=== PATIENT | male | born 1960 | race Caucasian/White ===

== ENCOUNTER 2024-02-20 11:18 | Outpatient (CLI) | payer OTHER, SELFPAY ==
--- NOTE | 2024-02-20 12:54 | ECG_ITS ---
Test Date: 2024-02-20 13:17:26 Measurements Intervals [place] Rate: 81 P: 5 W[place]: 220 QRS: -22 QRSD: 99 T: -3 QT: 349 QTc: 405 Interpretive Statements SINUS RHYTHM WITH FIRST DEGREE AV BLOCK BORDERLINE LEFT AXIS DEVIATION [QRS AXIS < -20] VOLTAGE CRITERIA FOR LVH [MEETS CRITERIA IN ONE OF: R(aVL), S(V1), R(V5), R(V5/V6)+S(V1)] No previous ECG available for comparison Electronically Signed On 02-20-2024 14:27:15 LEAD GENERATOR by Brianna Slaughter M.D.
[2024-02-20 13:54] LABS: Basophils Percent Auto 0.5 % (0.2-1.2); Eosinophils Absolute Auto 0.1 K/mm3 (0-0.3); Eosinophils Percent Auto 1.4 % (0-4.4); Hematocrit 40.6 % (42.0-52.0); Hemoglobin 13.2 g/dL (14.0-18.0); Immature Granulocyte Absolute 0.02 K/mm3 (0.00-0.031); Immature Granulocyte Percent A 0.3 % (0-0.5); Lymphocytes Absolute Auto 2.55 K/mm3 (0.9-3.2); Lymphocytes Percent Auto 34.7 % (18.3-44.2); Mean Corpuscular HGB Conc 32.5 g/dl (32-36); Mean Corpuscular Hemoglobin 34.4 pg (26-34); Mean Corpuscular Volume 105.7 fl (80-100); Mean Platelet Volume 10.2 fl (7.4-10.4); Monocytes Absolute Auto 0.9 K/mm3 (0.1-0.6); Monocytes Percent Auto 12.4 % (2.6-8.5); Neutrophils Absolute Auto 3.7 K/mm3 (1.3-6.7); Neutrophils Percent Auto 50.7 % (45.5-73.1); Platelet Count Result 361 k/mm3 (150-375); Red Blood Count 3.84 M/mm3 (4.6-6.20); Red Cell Distribution Width 12.8 % (11.5-14.5); White Blood Count 7.4 K/mm3 (4.5-10.0)
[2024-02-20 14:00] LABS: Urine Cotinine NEGATIVE
[2024-02-20 14:03] LABS: Albumin Level 4.5 g/dL (3.5-5.1)
[2024-02-20 14:06] LABS: Anion Gap 8 mmol/L (4-12); Blood Urea Nitrogen 25 mg/dL (9-20); Calcium 9.8 mg/dL (8.4-10.2); Carbon Dioxide 19 mmol/L (22-30); Chloride 107 mmol/L (98-107); Estimated Glomerular Filt Rate > 60; Glucose 86 mg/dL (65-110); Potassium 4.2 mmol/L (3.4-5.0); Sodium 134 mmol/L (137-145)
[2024-02-20 14:07] LABS: Hemoglobin A1C 5.1 % (<5.7)
[2024-02-20 14:16] LABS: Macrocytosis 1+ (NORMAL); Platelet Estimate Adequate (Adequate); Schistocytes None Seen
[2024-02-20 15:09] LABS: MRSA (PCR) NOT DETECTED (NOT DETECTE)
== END 2024-02-20 11:19 | disposition home or self-care (01) ==
LOC: ANHSURGERY 11:26
PROVIDERS: Anesthesiology; Visit Provider Orthopaedic Surgery
DX: Z01.818 Encounter for other preprocedural examination (principal); M16.12 Unilateral primary osteoarthritis, left hip; E11.9 Type 2 diabetes mellitus without complications; R94.31 Abnormal electrocardiogram [ECG] [EKG]
CPT/HCPCS: 36415; 80048; 80307; 82040; 83036; 85025; 86850; 86900; 86901; 87641; 93005

== ENCOUNTER 2024-02-28 18:07 | Observation (INO) | payer OTHER, SELFPAY ==
--- NOTE | 2024-02-20 11:45 | PC.NURSE ---
Report to the Outpatient Waiting Room, entrance under the green pavilion located off [facility], at time _6 AM on date 02/27/24 . Planned Procedure Time: _7:30 AM .? Time changes happen often and if your time is changed the preop area will call you the afternoon before. - You and your visitor will be asked to self-screen and do not enter if you have any COVID symptoms. Please call surgeon if you need to reschedule. - A mask is optional within the hospital at this time. Patients may have clear liquids (water, carbonated beverages, clear teas, apple juice) until 3 hours prior to surgery( 4:30 AM) with a maximum of 20 ounces. - No food from midnight until time of surgery and no smoking. This includes no chewing gum, candy or mints. - Take only the following medications with a SIP of water on the morning of surgery: _inhaler if needed,amlodipine, DO NOT STOP ANY OF YOUR OTHER PRESCRIPTION MEDICATIONS PRIOR TO SURGERY EXCEPT THE FOLLOWING Medications to discontinue per physician __PT STATES HOLD TRULICITY 10 DAYS PRE OP PER PCP.LAST DOSE02/12/24, HOLD MELOXICAM AND ALEVE PER DR WEN. HOLD ALL VITAMINS AND SUPPLEMENTS 3 DAYS PRE OP PER ANESTHESIA LAST DOSE02/23/24 Please no make-up, nail divehi, hairspray, perfume, deodorant, or body powder the day of surgery.? No jewelry (including any body piercings) or valuables the day of surgery, leave them at home.? Please take a shower or bath the night before, or the morning of, surgery with an antibacterial soap.? Wear comfortable, loose fitting clothing.? Children are encouraged to wear pajamas. - Jewelry must be removed prior to entering the operating room.? Rings and piercings that are not removed may be cut off. - The hospital will not accept responsibility for valuables.? - Please leave all valuables, including medications, at home the day of surgery. If you are going home after surgery, a licensed road train driver must drive you home.? - NO public transportation without another adult if you receive anesthesia. - We recommend that an adult stay with you for 24 hours following discharge. - We also recommend that you do not drive, make important decision, drink alcoholic beverages, or take any drugs that were not prescribed by your health care provider for at least 24 hours after your discharge time. Follow any additional instructions given to you from your surgeon. VERBAL AND WRITTEN instructions given to __PATIENT and asked if any additional questions and then verbalized understanding. Patient advised to call surgeon office or pre surgery nurse liaison [phone] if any additional questions.
[2024-02-20 11:58] VITALS: BMI 37.2
[2024-02-20 12:58] VITALS: BP 171/96; PULSE 81; RESP 18; TEMP 37.3; O2SAT 97
--- NOTE | 2024-02-25 08:20 | PM.IMHP ---
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 He has severe arthritis. He would like to porceed with a Total Hip. Review of Systems Musculoskeletal: Musculoskeletal: Reports as per HPI, Reports abnormal gait, Reports arthralgias, Reports limited range of motion and Reports muscle weakness Neurologic: Reports abnormal gait PMFSH Past Medical History Medical History (Updated 02/25/24 @ 08:26 by Salvador Clark MD) Broken jaw Hypertension Diabetes Surgical History Surgical History (Updated 02/09/24 @ 10:20 by Emelyn Prather CMA) History of skin graft History of surgery on wrist Family History Family History (Updated 02/09/24 @ 10:18 by Emelyn Prather CMA) Mother Cancer Father Cancer Grandparent Cancer Social History Social History (Updated 02/09/24 @ 10:28 by Floridalma Grace CMA) Smoking packs per day: 2 Smoking cigarettes per day: 40.0 Years smoked: 30 Smoking pack-years: 60.00 Smoking status: Former smoker Tobacco type: cigarettes Smoking end date: 03/07/08 Additional smoking assessment comments: DENIES ANY FORM OF TOBACCO USE Alcohol intake: never Substance use: never Do You Feel Safe in your Home?: Yes Lack of Transportation: No Lack of Food: Never True Current Housing: I Have Housing Concerned About Future Housing: No Difficulty Paying Gas/Electric Bills: No Difficulty Paying for Meds: No Currently Unemployed: No Education: Trade/Vocational Certificate Difficulty w/ Childcare or Family Care: No Living arrangements: alone Spiritual care concerns: No Meds Home Medications and Allergies Home Medications ?Medication ?Instructions ?Recorded ?Confirmed ?Type albuterol sulfate 90 mcg/actuation 1 puff inhalation Q4H PRN 02/09/24 02/20/24 History aerosol inhaler shortness of breath or wheezing insulin glargine 100 unit/mL 10 unit subcut QPM 02/09/24 02/20/24 History subcutaneous solution (Lantus U-100 Insulin) losartan 25 mg tablet 25 mg PO DAILY 02/09/24 02/20/24 History meloxicam 7.5 mg tablet 7.5 mg PO DAILY 02/09/24 02/20/24 History metformin 500 mg tablet 1,000 mg PO BID 02/09/24 02/20/24 History montelukast 10 mg tablet 10 mg PO DAILY 02/09/24 02/20/24 History (Singulair) tramadol 25 mg tablet 25 mg PO Q6H PRN pain 02/09/24 02/20/24 History acetaminophen 500 mg tablet 1,000 mg PO Q6H PRN pain 02/20/24 02/20/24 History (Acetaminophen Extra Strength) amlodipine 5 mg tablet 5 mg PO DAILY 02/20/24 02/20/24 History ascorbic acid (vitamin C) 500 mg 500 mg PO DAILY 02/20/24 02/20/24 History tablet (C-500) atorvastatin 10 mg tablet 10 mg PO EVERY OTHER DAY 02/20/24 02/20/24 History dulaglutide 1.5 mg/0.5 mL 1.5 mg subcut WEEKLY 02/20/24 02/20/24 History subcutaneous pen injector (Trulicity) losartan 50 mg-hydrochlorothiazide 1 tablet PO DAILY 02/20/24 02/20/24 History 12.5 mg tablet meloxicam 15 mg tablet 15 mg PO DAILY 02/20/24 02/20/24 History milk thistle 150 mg capsule 150 mg PO DAILY 02/20/24 02/20/24 History naproxen sodium 220 mg tablet 440 mg PO Q8-12H PRN pain 02/20/24 02/20/24 History (Aleve) omega 5-sph-xzw-fish oil 60 mg-90 1 cap PO DAILY 02/20/24 02/20/24 History mg-500 mg capsule (Fish Oil) omeprazole 40 mg capsule,delayed 40 mg PO DAILY 02/20/24 02/20/24 History release Allergies Allergy/AdvReac Type Severity Reaction Status Date / Time esomeprazole (From Nexium) Allergy unkown Verified 02/20/24 11:59 Exam Narrative: He has pain with any motion. He has a difficult time ambulating. Grinding and crepitus is noted. IR to 0, ER to about 10. He has an antalgic gait. Eyes: General: appearance normal, both eyes and all related structures Neck: Neck: supple Resp: Effort & Inspection: normal respiratory effort Cardio: Rate: regular rate Rhythm: regular rhythm Extrem: General: Limp noted and pedal edema No Data to Display Assessment and Plan Assessment and plan (1) Osteoarthritis of left hip: Code(s): M16.12 - Unilateral primary osteoarthritis, left hip Status: Acute (2) Obesity (BMI 35.0-39.9 without comorbidity): Code(s): E66.9 - Obesity, unspecified Status: Acute Assessment and Plan: He has severe Left Hip Arthritis. He has collapse anddeformity. he has failed conservative treatment. He would like to proceed with a Total Hip Arthroplasty, We discussed risks, benefits, limitations, and alternatives in detail. He agrees and would like to proceed.
[2024-02-27] VITALS (16 sets, daily range): BP systolic 82–158; BP diastolic 45–81; PULSE 58–112; RESP 14–19; TEMP 35.7–37.5; O2SAT 8–100
[2024-02-27 06:27] LABS: Glucose Point of Care 121 mg/dl (65-105)
[2024-02-27] MEDS: ACETAMINOPHEN 500 MG TABLET 1000 MG PO (06:30)
[2024-02-27] MEDS: LACTATED RINGERS 1,000 ML 30 ML IV CONT ×2 (06:35→09:17)
[2024-02-27] MEDS: TRANEXAMIC ACID 1,000MG/ISO100 1,000 MG/100 ML BAG 200 MG IVPB (06:35)
[2024-02-27] MEDS: VANCOMYCIN 1,750 MG/NS 500 ML BAG 250 MG IVPB (06:40)
--- NOTE | 2024-02-27 06:50 | WPDHPUPDATE1 ---
History and Physical Update Update Date/Time: 02/27/24 06:50 History and Physical has been reviewed, including an updated exam of the patient. There are NO changes in the patient's condition. Risks, benefits, and alternatives have been discussed and questions answered. Patient agrees to proceed with procedure.
--- NOTE | 2024-02-27 07:20 | P.PNAN_ITS ---
Anes - Initial Pre Proc Eval Procedure: Operation Date: 02/27/24 07:30 Proposed Procedures p Left Total Hip Arthroplasty - Salvador Clark MD Date/Time: 02/27/24 07:20 Surgeon: Salvador Clark MD Pre Op Diagnosis: O A Left Hip Patient Data Age: 63 Gender: M Height: 1.75 m Weight: 113.4 kg Last Vital Signs Temp 36.2 C L 02/27/24 05:59 Pulse 90 02/27/24 05:59 Resp 18 02/27/24 05:59 BP 148/81 H 02/27/24 05:59 Pulse Ox 96 02/27/24 05:59 O2 Del Method Room Air 02/27/24 05:59 Allergies Allergy/AdvReac Type Severity Reaction Status Date / Time esomeprazole (From Nexium) Allergy unkown Verified 02/27/24 06:01 Home Medications ?Medication ?Instructions ?Recorded ?Confirmed ?Type albuterol sulfate 90 mcg/actuation 1 puff inhalation Q4H PRN 02/09/24 02/27/24 History aerosol inhaler shortness of breath or wheezing insulin glargine 100 unit/mL 10 unit subcut QAM 02/09/24 02/27/24 History subcutaneous solution (Lantus U-100 Insulin) losartan 25 mg tablet 25 mg PO DAILY 02/09/24 02/20/24 History meloxicam 7.5 mg tablet 7.5 mg PO DAILY 02/09/24 02/20/24 History metformin 500 mg tablet 1,000 mg PO BID 02/09/24 02/27/24 History montelukast 10 mg tablet 10 mg PO DAILY 02/09/24 02/27/24 History (Singulair) tramadol 25 mg tablet 25 mg PO Q6H PRN pain 02/09/24 02/27/24 History acetaminophen 500 mg tablet 1,000 mg PO Q6H PRN pain 02/20/24 02/27/24 History (Acetaminophen Extra Strength) amlodipine 5 mg tablet 5 mg PO DAILY 02/20/24 02/27/24 History ascorbic acid (vitamin C) 500 mg 500 mg PO DAILY 02/20/24 02/27/24 History tablet (C-500) atorvastatin 10 mg tablet 10 mg PO EVERY OTHER DAY 02/20/24 02/27/24 History dulaglutide 1.5 mg/0.5 mL 1.5 mg subcut WEEKLY 02/20/24 02/27/24 History subcutaneous pen injector (Trulicity) losartan 50 mg-hydrochlorothiazide 1 tablet PO DAILY 02/20/24 02/27/24 History 12.5 mg tablet meloxicam 15 mg tablet 15 mg PO DAILY 02/20/24 02/27/24 History milk thistle 150 mg capsule 150 mg PO DAILY 02/20/24 02/27/24 History naproxen sodium 220 mg tablet 440 mg PO Q8-12H PRN pain 02/20/24 02/27/24 History (Aleve) omega 6-dcg-avr-fish oil 60 mg-90 1 cap PO DAILY 02/20/24 02/27/24 History mg-500 mg capsule (Fish Oil) omeprazole 40 mg capsule,delayed 40 mg PO DAILY 02/20/24 02/27/24 History release Laboratory Tests 02/27/24 06:24 POC Capillary Glucose 121 H mg/dl (65-105) Patient hx anesthesia problems: none Family hx anesthesia problems: none Results Review: All pre-operative results and documents have been reviewed as part of the pre- operative evaluation. [facility] Past Medical History Medical History Broken jaw Hypertension Diabetes Surgical History Surgical History History of skin graft History of surgery on wrist Family History Family History Mother Cancer Father Cancer Grandparent Cancer Social History Social History Smoking status: Never smoker Alcohol intake: never Substance use: never Do You Feel Safe in your Home?: Yes Lack of Transportation: No Lack of Food: Never True Current Housing: I Have Housing Concerned About Future Housing: No Difficulty Paying Gas/Electric Bills: No Difficulty Paying for Meds: No Currently Unemployed: No Education: Trade/Vocational Certificate Difficulty w/ Childcare or Family Care: No Anes - Eval Final PreProcedure Day of Procedure 02/27/24 07:20 Patient weight: obese Heart: regular rate and rhythm Lungs: decreased breath sounds Airway: Mallampati scale class II Neurological: alert and oriented Last oral intake: >/= 8 hours ASA classification: III Emergent: no Anesthetic plan: proceed Anesthesia type and monitoring: general ETT and standard monitoring Results Review: All pre-operative results and documents have been reviewed as part of the pre- operative evaluation. Informed Consent: The patient's anesthetic plan and its attendant risks and benefits were discussed with the patient/family/POA. Questions were solicited and answers provided to the satisfaction of the patient/family/POA.
[2024-02-27] MEDS: ceFAZolin 2 GM/D5W 50 ML 2 GM/50 ML BAG IVPB ×3 (07:26→22:21)
[2024-02-27] MEDS: BUPIVACAINE/EPINEPHRINE 0.5% 30 ML VIAL INFILTRATE (08:32)
--- NOTE | 2024-02-27 08:52 | W.PM.PROC2 ---
Procedure Note - Detailed Date of Procedure 02/27/24 Pre-op Diagnosis Osteoarthritis LEFT Hip Post-op Diagnosis Same Procedure Performed LEFT total hip arthroplasty Surgeon Salvador Clark MD Clinical Laboratory Service Teacher Braxton Negron Anesthesia General Indications Pain and Arthritis Description of Procedure Patient was brought to the operating room #7, and an anesthetic was administered. The patient was placed with the operative Hip up and sterilely prepped and draped in the usual manner. A longitudinal incision was performed. Dissection was carried down to the fascia. A Hardinge type approach was used and the femoral head was dislocated anteriorly. The Femoral head was removed a finger breath above the lesser trochanter. The acetabulum was serially reamed to accept a 56 component. This was impacted into place and secured with 2 25mm screws. A high wall liner was placed. The femur was reamed and broached to accept a 14 component which was impacted into place. A plus 3 head and neck were placed and the hip was put through full range of motion. The hip was noted to be stable. The wounds were then closed in a layered fashion using #5 ethibond, 2 vicryl, 2-0 vicryl and genia. Patient left the operating room in satisfactory condition. Implants Biomet Taper Lock Stem Lucy Multihole Cup Estimated Blood Loss 400 Drains No Packing No Pathology None sent Complications No immediate complications Condition Stable Disposition PACU [facility] Billing Surgery - Charge Forward: Surgery Billing ([id number] Total Hip)
[2024-02-27 09:38] LABS: Glucose Point of Care 135 mg/dl (65-105)
[2024-02-27] MEDS: fentaNYL CITRATE INJ (*CRX) 100 MCG/2 ML VIAL 25 MCG IV PUSH ×2 (09:55→09:57)
[2024-02-27] MEDS: SODIUM CHLORIDE 0.9% IV 1,000 ML 125 ML IV CONT ×3 (11:10→20:32)
[2024-02-27] MEDS: HYDROmorphone HCL INJ (*CRX) 1 MG/ML SYR IV PUSH (11:13)
[2024-02-27 12:13] LABS: Glucose Point of Care 146 mg/dl (65-105)
--- NOTE | 2024-02-27 12:43 | PM.IMCN ---
Assessment and Plan Assessment and plan (1) Osteoarthritis of left hip: Code(s): M16.12 - Unilateral primary osteoarthritis, left hip Status: Acute Assessment and Plan: Total hip replacement by Orthopedics on 02/27/2024 Pain management per Orthopedics Patient on postop Xarelto for DVT prevention PT and OT for postop recommendations (2) Diabetes: Code(s): E11.9 - Type 2 diabetes mellitus without complications Status: Acute Assessment and Plan: Diabetic diet Accu-Cheks AC and HS SSI Hold metformin while in hospital (3) Hypertension: Code(s): I10 - Essential (primary) hypertension Status: Acute Assessment and Plan: Restart Norvasc Plan Patient will likely DC home tomorrow after PT and OT HPI Date of Consult Consult date: 02/27/24 Requesting Physician: Salvador Clark MD Primary Care Provider: Zohra Braxton Consult Narrative Narrative: Danilo Reagan past medical history of obesity, hypertension and diabetes is a 63 year old male in the hospital for left total hip by Orthopedic surgery. Hospitalist team has been consulted for medical management. Patient states that his pain is controlled with current regimen able to rest. Hospitalist team was consulted to medically manage overnight. Patient will likely be able to DC home tomorrow. Review of Systems Review of Systems: 12 systems were reviewed and are negative except for as per HPI. [facility] Past Medical History Medical History Broken jaw Hypertension Diabetes Surgical History Surgical History History of skin graft History of surgery on wrist Family History Family History Mother Cancer Father Cancer Grandparent Cancer Social History Social History Smoking packs per day: 2 Smoking cigarettes per day: 40.0 Years smoked: 30 Smoking pack-years: 60.00 Smoking status: Never smoker Additional smoking assessment comments: DENIES ANY FORM OF TOBACCO USE Alcohol intake: never Substance use: never Do You Feel Safe in your Home?: Yes Lack of Transportation: No Lack of Food: Never True Current Housing: I Have Housing Concerned About Future Housing: No Difficulty Paying Gas/Electric Bills: No Difficulty Paying for Meds: No Currently Unemployed: No Education: Trade/Vocational Certificate Difficulty w/ Childcare or Family Care: No Living arrangements: alone Spiritual care concerns: No Meds Home Medications and Allergies Home Medications ?Medication ?Instructions ?Recorded ?Confirmed ?Type albuterol sulfate 90 mcg/actuation 1 puff inhalation Q4H PRN 02/09/24 02/27/24 History aerosol inhaler shortness of breath or wheezing insulin glargine 100 unit/mL 10 unit subcut QAM 02/09/24 02/27/24 History subcutaneous solution (Lantus U-100 Insulin) losartan 25 mg tablet 25 mg PO DAILY 02/09/24 02/20/24 History meloxicam 7.5 mg tablet 7.5 mg PO DAILY 02/09/24 02/20/24 History metformin 500 mg tablet 1,000 mg PO BID 02/09/24 02/27/24 History montelukast 10 mg tablet 10 mg PO DAILY 02/09/24 02/27/24 History (Singulair) tramadol 25 mg tablet 25 mg PO Q6H PRN pain 02/09/24 02/27/24 History acetaminophen 500 mg tablet 1,000 mg PO Q6H PRN pain 02/20/24 02/27/24 History (Acetaminophen Extra Strength) amlodipine 5 mg tablet 5 mg PO DAILY 02/20/24 02/27/24 History ascorbic acid (vitamin C) 500 mg 500 mg PO DAILY 02/20/24 02/27/24 History tablet (C-500) atorvastatin 10 mg tablet 10 mg PO EVERY OTHER DAY 02/20/24 02/27/24 History dulaglutide 1.5 mg/0.5 mL 1.5 mg subcut WEEKLY 02/20/24 02/27/24 History subcutaneous pen injector (Trulicity) losartan 50 mg-hydrochlorothiazide 1 tablet PO DAILY 02/20/24 02/27/24 History 12.5 mg tablet meloxicam 15 mg tablet 15 mg PO DAILY 02/20/24 02/27/24 History milk thistle 150 mg capsule 150 mg PO DAILY 02/20/24 02/27/24 History naproxen sodium 220 mg tablet 440 mg PO Q8-12H PRN pain 02/20/24 02/27/24 History (Aleve) omega 4-xza-nok-fish oil 60 mg-90 1 cap PO DAILY 02/20/24 02/27/24 History mg-500 mg capsule (Fish Oil) omeprazole 40 mg capsule,delayed 40 mg PO DAILY 02/20/24 02/27/24 History release Allergies Allergy/AdvReac Type Severity Reaction Status Date / Time esomeprazole (From Nexium) Allergy unkown Verified 02/27/24 06:01 Vital Signs Vital Signs - 24 hr 02/27/24 05:59 02/27/24 09:17 02/27/24 09:25 Temperature 97.2 F L 97.3 F L Pulse Rate 90 78 Respiratory Rate 18 18 Blood Pressure 148/81 H 82/58 L 93/69 L Pulse Oximetry 96 96 Oxygen Delivery Room Air Simple Face Mask Oxygen Flow Rate 8 02/27/24 09:30 02/27/24 09:40 02/27/24 09:45 Temperature Pulse Rate 66 73 Respiratory Rate 19 19 Blood Pressure 100/63 116/67 Pulse Oximetry 95 95 Oxygen Delivery Simple Face Mask Nasal Cannula Nasal Cannula Oxygen Flow Rate 8 2 2 02/27/24 10:00 02/27/24 10:15 02/27/24 10:25 Temperature 97.3 F L Pulse Rate 58 L 62 60 Respiratory Rate 15 14 14 Blood Pressure 120/65 126/66 126/65 Pulse Oximetry 93 95 95 Oxygen Delivery Nasal Cannula Nasal Cannula Nasal Cannula Oxygen Flow Rate 2 2 2 Exam Narrative: General: well appearing, appears stated age. HEENT: normocephalic, atraumatic. Mucous membranes moist. EOMI, PERRLA, bilateral sclera anicteric, no conjunctival injection. Neck supple without JVD, lymphadenopathy, or bruit. Respiratory: clear to ascultation bilaterally. No rales/rhonic/wheezes. Cardiovascular: Regular rate and rhythm, normal S1-S2 upon ascultation. No murmurs, rubs, or clicks. PMI is nondisplaced, capillary refill less than 3 second. Abdomen: Soft, round, no pulsatile masses, nondistended and nontender. No rebound, no guarding. No CVA tenderness, no hepatosplenomegaly. Bowel sounds present to all four quadrants. No high pitch or tinkling sounds, resonant to percussion. Extremities: No cyanosis, clubbing, or edema present. Pulses are palpable 2/2. Left lower extremity range of motion reduced to pain, surgical dressing clean dry intact Neuro: Alert and orientated x 4. PERRLA. Cranial nerves 2-12 intact without focal deficit. Skin: Warm, dry, and intact, without rash, erythema, or lesion. Psych: pleasant, cooperative, normal speech, normal affect, no hallucinations, no dysarthia Quality VTE Prophylaxis VTE prophylaxis: mechanical ordered and pharmacologic ordered Hospitalist MIPS Advance Care Plan I have confirmed that the patient's Advanced Care Plan is present, code status is documented, or surrogate decision maker is listed in patient medical record.: Yes Medication Reconciliation I have utilized all available resources to obtain, update and review the patients current medications (includes all prescriptions, OTC, herbals, cannabis, and nutritional supplements).: Yes
[2024-02-27] MEDS: SENNA/DOCUSATE SODIUM TABLET 2 TAB PO ×2 (12:56→17:31)
[2024-02-27] MEDS: CELECOXIB 200 MG CAPSULE PO (12:56)
[2024-02-27] MEDS: ATORVASTATIN 10 MG TABLET PO (12:56)
[2024-02-27] MEDS: INSULIN GLARGINE (*BKC) 100 UNITS/ML 10 UNITS SUB-Q (13:01)
[2024-02-27] MEDS: polyethylene glycoL 3350 17 GM POWD.PACK PO (13:01)
--- NOTE | 2024-02-27 13:09 | ADMGEN ---
This patient, Danilo Reagan, was admitted to [facility] Surg Room 325-02. Patient/family oriented to hospital policies and general routines including ID bracelet, bed and alarms, visiting hours, pain management, procedures, bathroom and other care routines, personal items, smoking policy, room service/diet, and visiting hours. Information on how to activate the Rapid Response Team has been discussed. Patient/Family are encouraged to report perceived risks to care and to ask questions if they do not understand what they are told or what they should do.
[2024-02-27] MEDS: ONDANSETRON INJ 4 MG/2 ML VIAL IV PUSH (15:42)
[2024-02-27] MEDS: HYDROcodone/acetaminophen (*CRX) 5-325 MG TABLET 1 TAB PO ×2 (15:48→20:31)
[2024-02-27] MEDS: PROCHLORPERAZINE EDISYLATE 10 MG/2 ML VIAL 5 MG IV PUSH (17:30)
[2024-02-27] MEDS: RIVAROXABAN 10 MG TABLET PO (17:32)
[2024-02-27 17:59] LABS: Glucose Point of Care 160 mg/dl (65-105)
[2024-02-28] VITALS (7 sets, daily range): BP systolic 134–180; BP diastolic 67–116; PULSE 54–102; RESP 14–20; TEMP 36.7–37; O2SAT 90–95
--- NOTE | ~2024-02-28 | XR_ITS ---
EXAMINATION: XR chest 1V portable Exam Date/Time: 02/27/2024 22:43 TWISTER OPERATOR HISTORY: sob Comparison: None. RESULT: Lines, tubes, and devices: None. Lungs and pleura: Lordotic positioning. Slightly low volumes with crowding. Lungs otherwise clear Cardiomediastinal silhouette: Unremarkable. Other: No acute osseous or upper abdominal finding. IMPRESSION: No acute cardiopulmonary process. Reviewed, dictated and finalized at location K. TER OPERATOR
--- NOTE | ~2024-02-28 | XR_ITS ---
EXAMINATION: XR surgery orthopedic DATE: 02/27/2024 08:53 INDICATION: Intraoperative evaluation during left total hip arthroplasty TECHNIQUE: Frontal view of the left hip was obtained. COMPARISON: 01/02/2024 FINDINGS: Intraoperative image during a left total hip arthroplasty demonstrate placement of an acetabular comp onent which is fixed with at least a single screw and which appears in near anatomic alignment on the single image provided. A femoral broach is in place with the proximal tip centered over the acetabu lar component. Portions of the pelvis are obscured by an overlying posterior. No fractures in the vis ualized bones. IMPRESSION: 1. Expected appearance during left total hip arthroplasty. Reviewed, dictated and finalized at location B. CTOR OUTCOMES
[2024-02-28] MEDS: HYDROcodone/acetaminophen (*CRX) 5-325 MG TABLET 1 TAB PO ×4 (01:11→19:55)
[2024-02-28] MEDS: traMADol HCL (*CRX) 50 MG TABLET PO (04:23)
[2024-02-28] MEDS: ceFAZolin 2 GM/D5W 50 ML 2 GM/50 ML BAG IVPB (06:19)
[2024-02-28 06:44] LABS: Basophils Percent Auto 0.3 % (0.2-1.2); Eosinophils Percent Auto 0.2 % (0-4.4); Hematocrit 34.7 % (42.0-52.0); Hemoglobin 11.3 g/dL (14.0-18.0); Immature Granulocyte Absolute 0.05 K/mm3 (0.00-0.031); Immature Granulocyte Percent A 0.5 % (0-0.5); Lymphocytes Absolute Auto 1.62 K/mm3 (0.9-3.2); Lymphocytes Percent Auto 16.2 % (18.3-44.2); Mean Corpuscular HGB Conc 32.6 g/dl (32-36); Mean Corpuscular Hemoglobin 34.2 pg (26-34); Mean Corpuscular Volume 105.2 fl (80-100); Mean Platelet Volume 9.9 fl (7.4-10.4); Monocytes Absolute Auto 1.5 K/mm3 (0.1-0.6); Neutrophils Absolute Auto 6.8 K/mm3 (1.3-6.7); Neutrophils Percent Auto 67.8 % (45.5-73.1); Platelet Count Result 277 k/mm3 (150-375); Red Cell Distribution Width 12.8 % (11.5-14.5)
[2024-02-28 07:05] LABS: Macrocytosis 1+ (NORMAL); Platelet Estimate Adequate (Adequate); Schistocytes None Seen
--- NOTE | 2024-02-28 07:18 | PM.PNORT ---
Progress Note: A&P Assessment and Plan (1) History of total left hip replacement: Code(s): Z96.642 - Presence of left artificial hip joint Status: Acute Assessment and Plan: Patient underwent LEFT Total Hip Arthroplasty for severe osteoarthritis with collapse. He is doing fairly well. Up today. May need placement. I'm concerned about the help he has at home. Subjective Subjective Date/Time Seen: 02/28/24 07:18 Post Op day: 1 Principal diagnosis: S/P Left Total Hip Review of Systems Musculoskeletal: Musculoskeletal: Reports as per HPI, Reports abnormal gait, Reports arthralgias, Reports limited range of motion and Reports muscle weakness Neurologic: Reports abnormal gait Exam Narrative: Dressing intact Wiggles toes Up with a walker Resp: Effort & Inspection: normal respiratory effort Cardio: Rate: regular rate Rhythm: regular rhythm Objective Data Vital Signs Vital Signs: Vital Signs - 24 hr 02/27/24 09:17 02/27/24 09:25 02/27/24 09:30 Temperature 97.3 F L Pulse Rate 78 66 Respiratory Rate 18 19 Blood Pressure 82/58 L 93/69 L 100/63 Pulse Oximetry 96 95 Oxygen Delivery Simple Face Mask Simple Face Mask Oxygen Flow Rate 8 8 02/27/24 09:40 02/27/24 09:45 02/27/24 10:00 Temperature Pulse Rate 73 58 L Respiratory Rate 19 15 Blood Pressure 116/67 120/65 Pulse Oximetry 95 93 Oxygen Delivery Nasal Cannula Nasal Cannula Nasal Cannula Oxygen Flow Rate 2 2 2 02/27/24 10:15 02/27/24 10:25 02/27/24 10:27 Temperature 97.3 F L 96.3 F L Pulse Rate 62 60 81 Respiratory Rate 14 14 18 Blood Pressure 126/66 126/65 134/73 Pulse Oximetry 95 95 8 L Oxygen Delivery Nasal Cannula Nasal Cannula Oxygen Flow Rate 2 2 02/27/24 10:42 02/27/24 11:12 02/27/24 12:12 Temperature 96.6 F L 96.4 F L 96.4 F L Pulse Rate 83 62 68 Respiratory Rate 18 18 18 Blood Pressure 127/68 155/70 H 158/78 H Pulse Oximetry 100 98 98 Oxygen Delivery Oxygen Flow Rate 02/27/24 14:40 02/27/24 16:00 02/27/24 16:12 Temperature 96.6 F L 98.1 F Pulse Rate 88 88 Respiratory Rate 18 18 Blood Pressure 155/76 H 131/45 L Pulse Oximetry 98 98 Oxygen Delivery Room Air Oxygen Flow Rate 02/27/24 20:00 02/27/24 20:00 02/27/24 20:12 Temperature 99.5 F 99.5 F Pulse Rate 112 H 112 H Respiratory Rate 18 18 Blood Pressure 144/81 H 144/81 H Pulse Oximetry 92 92 Oxygen Delivery Room Air Oxygen Flow Rate 02/28/24 00:12 02/28/24 04:12 Temperature 98.6 F 98.3 F Pulse Rate 102 H 100 Respiratory Rate 16 20 Blood Pressure 148/72 H 158/93 H Pulse Oximetry 91 90 Oxygen Delivery Oxygen Flow Rate Intake/Output Intake/Output: Intake & Output 02/25/24 02/26/24 02/27/24 02/28/24 23:59 23:59 23:59 23:59 Intake Total 3114.2 250 Output Total 450 1200 Balance 2664.2 -950 Meds/Results Medications: Active Medications Generic Name Dose Route Start Last Admin Trade Name Freq PRN Reason Stop Dose Admin Hydrocodone Bitart/Acetaminophen 1 tab 02/27/24 22:42 02/28/24 01:11 Hydrocodone/Acetaminophen (*Crx) 5-325 Mg Tablet PO 1 tab Q4H PRN Administration Pain Rated 4-6 Hydrocodone Bitart/Acetaminophen 1 tab 02/27/24 22:42 Hydrocodone/Acetaminophen (*Crx) 10-325 Mg Tablet PO Q4H PRN Pain Rated 7-10 Albuterol 1 puff 02/27/24 10:27 Albuterol Sulfate (*Sp) Aerosol 1 Puff INHALATION Q4H PRN shortness of breath or wheezing Amlodipine Besylate 5 mg 02/27/24 10:27 02/27/24 11:11 Amlodipine Besylate 5 Mg Tablet PO Not Given DAILY SUSANNE Atorvastatin Calcium 10 mg 02/27/24 09:00 02/27/24 12:56 Atorvastatin 10 Mg Tablet PO 10 mg Q48H SUSANNE Administration Celecoxib 200 mg 02/27/24 10:27 02/27/24 12:56 Celecoxib 200 Mg Capsule PO 200 mg DAILY SUSANNE Administration Cyclobenzaprine HCl 10 mg 02/27/24 10:27 Cyclobenzaprine Hcl 10 Mg Tablet PO Q8H PRN Muscle Spasm Dextrose 12.5 gm 02/27/24 12:46 Dextrose 50% 25 Gm/50 Ml Syringe IV PUSH PRN PRN Hypoglycemia Protocol Glucagon 1 mg 02/27/24 12:46 Glucagon For Inj 1 Mg Vial IM PRN PRN Hypoglycemia Protocol Glucose 15 gm 02/27/24 12:46 Glucose Oral Gel 15 Gm Of Glucse In 37.5 Gm Tube PO PRN PRN Hypoglycemia Protocol Hydrochlorothiazide 12.5 mg 02/28/24 09:00 Hydrochlorothiazide 12.5 Mg Capsule PO QAM SUSANNE Hydromorphone HCl 1 mg 02/27/24 10:27 02/27/24 11:13 Hydromorphone Hcl Inj (*Crx) 1 Mg/Ml Syr IV PUSH 1 mg Q2H PRN Administration Breakthrough Pain Sodium Chloride 1,000 mls @ 125 mls/hr 02/27/24 10:27 02/27/24 20:32 Normal Saline Iv IV CONT 125 mls/hr .Q8H SUSANNE Administration Cefazolin Sodium 2 gm in 50 mls @ 100 mls/hr 02/27/24 15:00 02/28/24 06:49 Ancef 2 Gm/D5w 50 Ml IVPB 02/28/24 07:29 Infused Q8H SUSANNE Infusion Ibuprofen 800 mg in 200 mls @ 400 mls/hr 02/27/24 10:27 Caldolor 800 Mg/200 Ml IVPB Q6H PRN Breakthrough Pain Rated 1-3 or NPO Dextrose 1,000 mls @ 100 mls/hr 02/27/24 12:46 Dextrose 5% 1,000 Ml IVPB PRN PRN Hypoglycemia Protocol Insulin Aspart 1 - 2 units 02/27/24 21:00 02/27/24 20:35 Insulin Aspart (*Bkc) 100 Units/Ml SUB-Q Not Given HS [facility] Protocol Insulin Aspart 2 - 5 units 02/27/24 17:00 02/27/24 19:01 Insulin Aspart (*Bkc) 100 Units/Ml SUB-Q Not Given TIDWM [facility] Protocol Insulin Glargine 10 units 02/27/24 10:27 02/27/24 13:01 Insulin Glargine (*Bkc) 100 Units/Ml SUB-Q 10 units QAM SUSANNE Administration Losartan Potassium 50 mg 02/28/24 09:00 Losartan Potassium 50 Mg Tablet PO QAM [facility] Miscellaneous Information 1 each 02/27/24 00:01 Trulicity Weekly Is Nonformulary. Can He Use Home Supply? XX 03/28/24 00:00 CLARIFY [facility] Montelukast Sodium 10 mg 02/28/24 09:00 Montelukast Sodium 10 Mg Tablet PO DAILY [facility] Naloxone HCl 0.1 mg 02/27/24 10:27 Naloxone Hcl 0.4 Mg/Ml Vial IV PUSH Q2M PRN Opiate Reversal Non-Formulary Medication 1.5 mg 02/27/24 10:27 Dulaglutide [Trulicity] SUB-Q 03/28/24 10:26 WEEKLY [facility] Ondansetron HCl 4 mg 02/27/24 10:27 02/27/24 15:42 Ondansetron Inj 4 Mg/2 Ml Vial IV PUSH 4 mg Q4H PRN Administration Nausea And Vomiting Polyethylene Glycol 17 gm 02/27/24 10:27 02/27/24 13:01 Polyethylene Glycol 3350 17 Gm Powd.Pack PO 17 gm QAM [facility] Administration Prochlorperazine Edisylate 5 mg 02/27/24 17:08 02/27/24 17:30 Prochlorperazine Edisylate 10 Mg/2 Ml Vial IV PUSH 5 mg Q6H PRN Administration Nausea And Vomiting Rivaroxaban 10 mg 02/27/24 17:00 02/27/24 17:32 Rivaroxaban 10 Mg Tablet PO 04/01/24 17:01 10 mg DAILY@1700 [facility] Administration Senna/Docusate Sodium 2 tab 02/27/24 10:27 02/27/24 17:31 Senna/Docusate Sodium Tablet PO 2 tab BID [facility] Administration Tramadol HCl 50 mg 02/27/24 10:27 02/28/24 04:23 Tramadol Hcl (*Crx) 50 Mg Tablet PO 50 mg Q4H PRN Administration Pain Rated 1-3 Radiology Results: ITS Impressions Intraoperative X-Ray 02/27/24 08:54 IMPRESSION: 1. Expected appearance during left total hip arthroplasty. Chest X-Ray 02/27/24 23:28 IMPRESSION: No acute cardiopulmonary process. Labs Labs: Laboratory Results - last 24 hr 02/27/24 02/27/24 02/27/24 09:34 11:44 17:56 WBC RBC Hgb Hct MCV MCH MCHC RDW Plt Count MPV Immature Gran % (Auto) Neut % (Auto) Lymph % (Auto) [place] % (Auto) Eos % (Auto) Baso % (Auto) Lymph # (Auto) [place] # (Auto) Eos # (Auto) Baso # (Auto) Abs Immat Gran (auto) Absolute Neuts (auto) Absolute Nucleated RBC Nucleated RBC % Platelet Estimate Macrocytosis Schistocytes POC Capillary Glucose 135 H 146 H 160 H 02/28/24 06:25 WBC 10.0 RBC 3.30 L Hgb 11.3 L Hct 34.7 L MCV 105.2 H MCH 34.2 H MCHC 32.6 RDW 12.8 Plt Count 277 MPV 9.9 Immature Gran % (Auto) 0.5 Neut % (Auto) 67.8 Lymph % (Auto) 16.2 L [place] % (Auto) 15.0 H Eos % (Auto) 0.2 Baso % (Auto) 0.3 Lymph # (Auto) 1.62 [place] # (Auto) 1.5 H Eos # (Auto) 0.0 Baso # (Auto) 0.0 Abs Immat Gran (auto) 0.05 H Absolute Neuts (auto) 6.8 H Absolute Nucleated RBC 0.000 Nucleated RBC % 0.0 Platelet Estimate Adequate Macrocytosis 1+ Schistocytes None seen POC Capillary Glucose
[2024-02-28 08:06] LABS: Anion Gap 2 mmol/L (4-12); Blood Urea Nitrogen 15 mg/dL (9-20); Calcium 8.9 mg/dL (8.4-10.2); Carbon Dioxide 25 mmol/L (22-30); Chloride 107 mmol/L (98-107); Estimated CRCL calculation 153 ml/min; Estimated Glomerular Filt Rate > 60; Glucose 122 mg/dL (65-110); Potassium 4.2 mmol/L (3.4-5.0); Sodium 134 mmol/L (137-145)
[2024-02-28 08:10] LABS: Glucose Point of Care 145 mg/dl (65-105)
[2024-02-28 08:10] LABS: Glucose Point of Care 138 mg/dl (65-105)
[2024-02-28] MEDS: polyethylene glycoL 3350 17 GM POWD.PACK PO (09:11)
[2024-02-28] MEDS: LOSARTAN POTASSIUM 50 MG TABLET PO (09:12)
[2024-02-28] MEDS: CELECOXIB 200 MG CAPSULE PO (09:12)
[2024-02-28] MEDS: SENNA/DOCUSATE SODIUM TABLET 2 TAB PO ×2 (09:12→17:03)
[2024-02-28] MEDS: amLODIPine BESYLATE 5 MG TABLET PO (09:12)
[2024-02-28] MEDS: MONTELUKAST SODIUM 10 MG TABLET PO (09:12)
[2024-02-28] MEDS: hydroCHLOROthiazide 12.5 MG CAPSULE PO (09:12)
[2024-02-28] MEDS: INSULIN GLARGINE (*BKC) 100 UNITS/ML 10 UNITS SUB-Q (09:13)
--- NOTE | 2024-02-28 10:46 | PM.IMCN ---
Assessment and Plan Assessment and plan (1) Osteoarthritis of left hip: Code(s): M16.12 - Unilateral primary osteoarthritis, left hip Status: Acute Assessment and Plan: Total hip replacement by Orthopedics on 02/27/2024 Pain management per Orthopedics Patient on postop Xarelto for DVT prevention PT and OT was going to be discharged but possibly will need rehab as limited (2) Diabetes: Code(s): E11.9 - Type 2 diabetes mellitus without complications Status: Acute Assessment and Plan: Diabetic diet Accu-Cheks AC and HS SSI Hold metformin while in hospital BS reviewed- and stable (3) Hypertension: Code(s): I10 - Essential (primary) hypertension Status: Acute Assessment and Plan: Restart Norvasc Plan Patient will likely DC home tomorrow after PT and OT HPI Date of Consult Consult date: 02/28/24 Requesting Physician: Salvador Clark MD Primary Care Provider: Zohra Braxton Consult Narrative Reason for consult: med mngmnt Narrative: Danilo Reagan past medical history of obesity, hypertension and diabetes is a 63 year old male in the hospital for left total hip by Orthopedic surgery. Hospitalist team has been consulted for medical management. Patient states that his pain is controlled with current regimen able to rest. Initially, pt was going to be discharged home but there is concern for available help at home- so placement for rehab may be needed. Pt takes 10 units of lantus at home as well as trulicity. He stopped trulicity a week before surgery as instructed per pcp. His BS usually runs normal in am. Review of Systems Review of Systems: 12 systems were reviewed and are negative except for as per HPI. PMFSH Past Medical History Medical History Broken jaw Hypertension Diabetes Surgical History Surgical History History of skin graft History of surgery on wrist Family History Family History Mother Cancer Father Cancer Grandparent Cancer Social History Social History Smoking packs per day: 2 Smoking cigarettes per day: 40.0 Years smoked: 30 Smoking pack-years: 60.00 Smoking status: Never smoker Additional smoking assessment comments: DENIES ANY FORM OF TOBACCO USE Alcohol intake: never Substance use: never Do You Feel Safe in your Home?: Yes Lack of Transportation: No Lack of Food: Never True Current Housing: I Have Housing Concerned About Future Housing: No Difficulty Paying Gas/Electric Bills: No Difficulty Paying for Meds: No Currently Unemployed: No Education: Trade/Vocational Certificate Difficulty w/ Childcare or Family Care: No Living arrangements: alone Spiritual care concerns: No Meds Home Medications and Allergies Home Medications ?Medication ?Instructions ?Recorded ?Confirmed ?Type albuterol sulfate 90 mcg/actuation 1 puff inhalation Q4H PRN 02/09/24 02/27/24 History aerosol inhaler shortness of breath or wheezing insulin glargine 100 unit/mL 10 unit subcut QAM 02/09/24 02/27/24 History subcutaneous solution (Lantus U-100 Insulin) losartan 25 mg tablet 25 mg PO DAILY 02/09/24 02/20/24 History meloxicam 7.5 mg tablet 7.5 mg PO DAILY 02/09/24 02/20/24 History metformin 500 mg tablet 1,000 mg PO BID 02/09/24 02/27/24 History montelukast 10 mg tablet 10 mg PO DAILY 02/09/24 02/27/24 History (Singulair) tramadol 25 mg tablet 25 mg PO Q6H PRN pain 02/09/24 02/27/24 History acetaminophen 500 mg tablet 1,000 mg PO Q6H PRN pain 02/20/24 02/27/24 History (Acetaminophen Extra Strength) amlodipine 5 mg tablet 5 mg PO DAILY 02/20/24 02/27/24 History ascorbic acid (vitamin C) 500 mg 500 mg PO DAILY 02/20/24 02/27/24 History tablet (C-500) atorvastatin 10 mg tablet 10 mg PO EVERY OTHER DAY 02/20/24 02/27/24 History dulaglutide 1.5 mg/0.5 mL 1.5 mg subcut WEEKLY 02/20/24 02/27/24 History subcutaneous pen injector (Trulicity) losartan 50 mg-hydrochlorothiazide 1 tablet PO DAILY 02/20/24 02/27/24 History 12.5 mg tablet meloxicam 15 mg tablet 15 mg PO DAILY 02/20/24 02/27/24 History milk thistle 150 mg capsule 150 mg PO DAILY 02/20/24 02/27/24 History naproxen sodium 220 mg tablet 440 mg PO Q8-12H PRN pain 02/20/24 02/27/24 History (Aleve) omega 3-khx-and-fish oil 60 mg-90 1 cap PO DAILY 02/20/24 02/27/24 History mg-500 mg capsule (Fish Oil) omeprazole 40 mg capsule,delayed 40 mg PO DAILY 02/20/24 02/27/24 History release Allergies Allergy/AdvReac Type Severity Reaction Status Date / Time esomeprazole (From Nexium) Allergy unkown Verified 02/27/24 06:01 Vital Signs Vital Signs - 24 hr 02/27/24 11:12 02/27/24 12:12 02/27/24 14:40 Temperature 96.4 F L 96.4 F L Pulse Rate 62 68 Respiratory Rate 18 18 Blood Pressure 155/70 H 158/78 H Pulse Oximetry 98 98 Oxygen Delivery Room Air 02/27/24 16:00 02/27/24 16:12 02/27/24 20:00 Temperature 96.6 F L 98.1 F 99.5 F Pulse Rate 88 88 112 H Respiratory Rate 18 18 18 Blood Pressure 155/76 H 131/45 L 144/81 H Pulse Oximetry 98 98 92 Oxygen Delivery 02/27/24 20:00 02/27/24 20:12 02/28/24 00:12 Temperature 99.5 F 98.6 F Pulse Rate 112 H 102 H Respiratory Rate 18 16 Blood Pressure 144/81 H 148/72 H Pulse Oximetry 92 91 Oxygen Delivery Room Air 02/28/24 04:12 02/28/24 08:00 02/28/24 09:10 Temperature 98.3 F 98.3 F Pulse Rate 100 96 Respiratory Rate 20 18 Blood Pressure 158/93 H 176/90 H Pulse Oximetry 90 92 Oxygen Delivery Room Air Exam Narrative: General: well appearing, appears stated age. up in the chair. HEENT: normocephalic, atraumatic. Mucous membranes moist. EOMI, PERRLA, bilateral sclera anicteric, no conjunctival injection. Neck supple without JVD, lymphadenopathy, or bruit. Respiratory: clear to ascultation bilaterally. No rales/rhonic/wheezes. Cardiovascular: Regular rate and rhythm, normal S1-S2 upon ascultation. No murmurs, rubs, or clicks. PMI is nondisplaced, capillary refill less than 3 second. Abdomen: Soft, round, no pulsatile masses, nondistended and nontender. No rebound, no guarding. No CVA tenderness, no hepatosplenomegaly. Bowel sounds present to all four quadrants. No high pitch or tinkling sounds, resonant to percussion. Extremities: No cyanosis, clubbing, or edema present. Pulses are palpable 2/2. Left lower extremity range of motion reduced to pain, surgical dressing clean dry intact Neuro: Alert and orientated x 4. PERRLA. Cranial nerves 2-12 intact without focal deficit. Skin: Warm, dry, and intact, without rash, erythema, or lesion. Psych: pleasant, cooperative, normal speech, normal affect, no hallucinations, no dysarthia Const: General: comfortable Results Labs 02/28/24 06:25 02/28/24 06:25 Labs: Short CBC 02/28/24 Range/Units 06:25 WBC 10.0 (4.5-10.0) K/mm3 Hgb 11.3 L (14.0-18.0) g/dL Hct 34.7 L (42.0-52.0) % Plt Count 277 (150-375) k/mm3 [facility] 02/28/24 06:25 Sodium 134 L Potassium 4.2 Chloride 107 Carbon Dioxide 25 BUN 15 D Creatinine 0.50 L Glucose 122 H Calcium 8.9 Quality VTE Prophylaxis VTE prophylaxis: mechanical ordered and pharmacologic ordered
[2024-02-28 12:33] LABS: Glucose Point of Care 202 mg/dl (65-105)
[2024-02-28] MEDS: INSULIN ASPART (*BKC) 100 UNITS/ML SUB-Q (12:36)
[2024-02-28 16:40] LABS: Glucose Point of Care 126 mg/dl (65-105)
[2024-02-28] MEDS: RIVAROXABAN 10 MG TABLET PO (17:03)
[2024-02-28 20:14] LABS: Glucose Point of Care 135 mg/dl (65-105)
[2024-02-29] MEDS: HYDROcodone/acetaminophen (*CRX) 5-325 MG TABLET 1 TAB PO (00:07)
[2024-02-29 04:00] VITALS: BP 187/82; PULSE 94; RESP 16; TEMP 36.6; O2SAT 95
[2024-02-29] MEDS: HYDROcodone/acetaminophen (*CRX) 10-325 MG TABLET 1 TAB PO ×2 (04:32→08:27)
[2024-02-29 07:08] LABS: Basophils Percent Auto 0.2 % (0.2-1.2); Eosinophils Percent Auto 0.1 % (0-4.4); Hematocrit 32.9 % (42.0-52.0); Hemoglobin 10.9 g/dL (14.0-18.0); Immature Granulocyte Absolute 0.05 K/mm3 (0.00-0.031); Immature Granulocyte Percent A 0.4 % (0-0.5); Lymphocytes Absolute Auto 1.28 K/mm3 (0.9-3.2); Lymphocytes Percent Auto 10.9 % (18.3-44.2); Mean Corpuscular HGB Conc 33.1 g/dl (32-36); Mean Corpuscular Hemoglobin 34.4 pg (26-34); Mean Corpuscular Volume 103.8 fl (80-100); Mean Platelet Volume 9.9 fl (7.4-10.4); Monocytes Absolute Auto 1.6 K/mm3 (0.1-0.6); Monocytes Percent Auto 13.5 % (2.6-8.5); Neutrophils Absolute Auto 8.8 K/mm3 (1.3-6.7); Neutrophils Percent Auto 74.9 % (45.5-73.1); Platelet Count Result 251 k/mm3 (150-375); Red Blood Count 3.17 M/mm3 (4.6-6.20); Red Cell Distribution Width 12.6 % (11.5-14.5); White Blood Count 11.8 K/mm3 (4.5-10.0)
[2024-02-29 07:28] LABS: Alanine Aminotransferase 18 U/L (6-50); Albumin Level 3.4 g/dL (3.5-5.1); Alkaline Phosphatase 70 U/L (38-126); Anion Gap 3 mmol/L (4-12); Aspartate Amino Transferase 61 U/L (17-59); Bilirubin,Total 0.6 mg/dL (0.2-1.3); Blood Urea Nitrogen 13 mg/dL (9-20); Calcium 8.9 mg/dL (8.4-10.2); Carbon Dioxide 25 mmol/L (22-30); Chloride 104 mmol/L (98-107); Estimated CRCL calculation 153 ml/min; Estimated Glomerular Filt Rate > 60; Glucose 135 mg/dL (65-110); Potassium 3.9 mmol/L (3.4-5.0); Sodium 132 mmol/L (137-145)
[2024-02-29 07:37] LABS: Glucose Point of Care 121 mg/dl (65-105)
[2024-02-29] MEDS: LOSARTAN POTASSIUM 50 MG TABLET PO (08:26)
[2024-02-29] MEDS: CELECOXIB 200 MG CAPSULE PO (08:26)
[2024-02-29] MEDS: amLODIPine BESYLATE 5 MG TABLET PO (08:26)
[2024-02-29] MEDS: polyethylene glycoL 3350 17 GM POWD.PACK PO (08:26)
[2024-02-29] MEDS: SENNA/DOCUSATE SODIUM TABLET 2 TAB PO (08:26)
[2024-02-29] MEDS: ATORVASTATIN 10 MG TABLET PO (08:26)
[2024-02-29] MEDS: hydroCHLOROthiazide 12.5 MG CAPSULE PO (08:26)
[2024-02-29] MEDS: MONTELUKAST SODIUM 10 MG TABLET PO (08:27)
[2024-02-29] MEDS: INSULIN GLARGINE (*BKC) 100 UNITS/ML 10 UNITS SUB-Q (08:32)
--- NOTE | 2024-02-29 10:55 | P.PNOP_ITS ---
Progress Note: A&P Assessment and Plan (1) History of total left hip replacement: Code(s): Z96.642 - Presence of left artificial hip joint Status: Acute Subjective Subjective Date/Time Seen: 02/29/24 10:55 Post Op day: 2 Principal diagnosis: Left Total Kne Review of Systems Review of Systems: 12 systems were reviewed and are negativ e except for as per HPI. Exam Narrative: Wd-A NVI Amublating well Objective Data Vital Signs Vital Signs: Vital Signs - 24 hr 02/28/24 11:47 02/28/24 16:00 02/28/24 20:00 Temperature 98.3 F 98.1 F 98.5 F Pulse Rate 54 L 102 H 97 Respiratory Rate 18 16 14 Blood Pressure 134/92 H 165/67 H 156/74 H Pulse Oximetry 95 94 93 Oxygen Delivery 02/28/24 20:00 02/28/24 23:56 02/29/24 04:00 Temperature 98.4 F 97.8 F Pulse Rate 96 94 Respiratory Rate 14 16 Blood Pressure 180/116 H 187/82 H Pulse Oximetry 91 95 Oxygen Delivery Room Air 02/29/24 08:00 Temperature Pulse Rate Respiratory Rate Blood Pressure Pulse Oximetry Oxygen Delivery Room Air Intake/Output Intake/Output: Intake & Output 02/26/24 02/27/24 02/28/24 02/29/24 23:59 23:59 23:59 23:59 Intake Total 3114.2 1210 390 Output Total 450 2100 1575 Balance 2664.2 -182 -1255 Meds/Results Medications: Active Medications Generic Name Dose Route Start Last Admin Trade Name Freq PRN Reason Stop Dose Admin Hydrocodone Bitart/Acetaminophen 1 tab 02/27/24 22:42 02/29/24 00:07 Hydrocodone/Acetaminophen (*Crx) 5-325 Mg Tablet PO 1 tab Q4H PRN Administration Pain Rated 4-6 Hydrocodone Bitart/Acetaminophen 1 tab 02/27/24 22:42 02/29/24 08:27 Hydrocodone/Acetaminophen (*Crx) 10-325 Mg Tablet PO 1 tab Q4H PRN Administration Pain Rated 7-10 Albuterol 1 puff 02/27/24 10:27 Albuterol Sulfate (*Sp) Aerosol 1 Puff INHALATION Q4H PRN shortness of breath or wheezing Amlodipine Besylate 5 mg 02/27/24 10:27 02/29/24 08:26 Amlodipine Besylate 5 Mg Tablet PO 5 mg DAILY SUSANNE Administration Atorvastatin Calcium 10 mg 02/27/24 09:00 02/29/24 08:26 Atorvastatin 10 Mg Tablet PO 10 mg Q48H SUSANNE Administration Celecoxib 200 mg 02/27/24 10:27 02/29/24 08:26 Celecoxib 200 Mg Capsule PO 200 mg DAILY SUSANNE Administration Cyclobenzaprine HCl 10 mg 02/27/24 10:27 Cyclobenzaprine Hcl 10 Mg Tablet PO Q8H PRN Muscle Spasm Dextrose 12.5 gm 02/27/24 12:46 Dextrose 50% 25 Gm/50 Ml Syringe IV PUSH PRN PRN Hypoglycemia Protocol Glucagon 1 mg 02/27/24 12:46 Glucagon For Inj 1 Mg Vial IM PRN PRN Hypoglycemia Protocol Glucose 15 gm 02/27/24 12:46 Glucose Oral Gel 15 Gm Of Glucse In 37.5 Gm Tube PO PRN PRN Hypoglycemia Protocol Hydrochlorothiazide 12.5 mg 02/28/24 09:00 02/29/24 08:26 Hydrochlorothiazide 12.5 Mg Capsule PO 12.5 mg QAM SUSANNE Administration Hydromorphone HCl 1 mg 02/27/24 10:27 02/27/24 11:13 Hydromorphone Hcl Inj (*Crx) 1 Mg/Ml Syr IV PUSH 1 mg Q2H PRN Administration Breakthrough Pain Ibuprofen 800 mg in 200 mls @ 400 mls/hr 02/27/24 10:27 Caldolor 800 Mg/200 Ml IVPB Q6H PRN Breakthrough Pain Rated 1-3 or NPO Dextrose 1,000 mls @ 100 mls/hr 02/27/24 12:46 Dextrose 5% 1,000 Ml IVPB PRN PRN Hypoglycemia Protocol Insulin Aspart 1 - 2 units 02/27/24 21:00 02/28/24 19:55 Insulin Aspart (*Bkc) 100 Units/Ml SUB-Q Not Given HS [facility] Protocol Insulin Aspart 2 - 5 units 02/27/24 17:00 02/29/24 08:23 Insulin Aspart (*Bkc) 100 Units/Ml SUB-Q Not Given TIDWM [facility] Protocol Insulin Glargine 10 units 02/27/24 10:27 02/29/24 08:32 Insulin Glargine (*Bkc) 100 Units/Ml SUB-Q 10 units QAM SUSANNE Administration Losartan Potassium 50 mg 02/28/24 09:00 02/29/24 08:26 Losartan Potassium 50 Mg Tablet PO 50 mg QAM SUSANNE Administration Miscellaneous Information 1 each 02/27/24 00:01 02/29/24 07:24 Trulicity Weekly Is Nonformulary. Can He Use Home Supply? XX 03/28/24 00:00 Not Given CLARIFY SUSANNE Montelukast Sodium 10 mg 02/28/24 09:00 02/29/24 08:27 Montelukast Sodium 10 Mg Tablet PO 10 mg DAILY SUSANNE Administration Naloxone HCl 0.1 mg 02/27/24 10:27 Naloxone Hcl 0.4 Mg/Ml Vial IV PUSH Q2M PRN Opiate Reversal Non-Formulary Medication 1.5 mg 02/27/24 10:27 Dulaglutide [Trulicity] SUB-Q 03/28/24 10:26 WEEKLY [facility] Ondansetron HCl 4 mg 02/27/24 10:27 02/27/24 15:42 Ondansetron Inj 4 Mg/2 Ml Vial IV PUSH 4 mg Q4H PRN Administration Nausea And Vomiting Polyethylene Glycol 17 gm 02/27/24 10:27 02/29/24 08:26 Polyethylene Glycol 3350 17 Gm Powd.Pack PO 17 gm QAM SUSANNE Administration Prochlorperazine Edisylate 5 mg 02/27/24 17:08 02/27/24 17:30 Prochlorperazine Edisylate 10 Mg/2 Ml Vial IV PUSH 5 mg Q6H PRN Administration Nausea And Vomiting Rivaroxaban 10 mg 02/27/24 17:00 02/28/24 17:03 Rivaroxaban 10 Mg Tablet PO 04/01/24 17:01 10 mg DAILY@1700 [facility] Administration Senna/Docusate Sodium 2 tab 02/27/24 10:27 02/29/24 08:26 Senna/Docusate Sodium Tablet PO 2 tab BID SUSANNE Administration Tramadol HCl 50 mg 02/27/24 10:27 02/28/24 04:23 Tramadol Hcl (*Crx) 50 Mg Tablet PO 50 mg Q4H PRN Administration Pain Rated 1-3 Radiology Results: ITS Impressions Intraoperative X-Ray 02/27/24 08:54 IMPRESSION: 1. Expected appearance during left total hip arthroplasty. Chest X-Ray 02/27/24 23:28 IMPRESSION: No acute cardiopulmonary process. Labs Labs: Laboratory Results - last 24 hr 02/28/24 02/28/24 02/28/24 11:28 16:32 19:52 WBC RBC Hgb Hct MCV MCH MCHC RDW Plt Count MPV Immature Gran % (Auto) Neut % (Auto) Lymph % (Auto) [place] % (Auto) Eos % (Auto) Baso % (Auto) Lymph # (Auto) [place] # (Auto) Eos # (Auto) Baso # (Auto) Abs Immat Gran (auto) Absolute Neuts (auto) Absolute Nucleated RBC Nucleated RBC % Sodium Potassium Chloride Carbon Dioxide Anion Gap BUN Creatinine Estim Creat Clear Calc Estimated GFR Glucose POC Capillary Glucose 202 H 126 H 135 H Calcium Total Bilirubin AST ALT Alkaline Phosphatase Total Protein Albumin 02/29/24 02/29/24 07:01 07:29 WBC 11.8 H RBC 3.17 L Hgb 10.9 L Hct 32.9 L MCV 103.8 H MCH 34.4 H MCHC 33.1 RDW 12.6 Plt Count 251 MPV 9.9 Immature Gran % (Auto) 0.4 Neut % (Auto) 74.9 H Lymph % (Auto) 10.9 L [place] % (Auto) 13.5 H Eos % (Auto) 0.1 Baso % (Auto) 0.2 Lymph # (Auto) 1.28 [place] # (Auto) 1.6 H Eos # (Auto) 0.0 Baso # (Auto) 0.0 Abs Immat Gran (auto) 0.05 H Absolute Neuts (auto) 8.8 H Absolute Nucleated RBC 0.000 Nucleated RBC % 0.0 Sodium 132 L Potassium 3.9 Chloride 104 Carbon Dioxide 25 Anion Gap 3 L BUN 13 Creatinine 0.50 L Estim Creat Clear Calc 153 Estimated GFR > 60 Glucose 135 H POC Capillary Glucose 121 H Calcium 8.9 Total Bilirubin 0.6 AST 61 H ALT 18 Alkaline Phosphatase 70 Total Protein 7.0 Albumin 3.4 L
--- NOTE | 2024-02-29 10:58 | PM.DS ---
DS: Admitting Diagnosis Discharge Date 02/29/2024 Admitting Diagnosis Osteoarthritis Left Hip DS: Discharge Diagnosis Discharge Diagnosis (1) History of total left hip replacement: Code(s): Z96.642 - Presence of left artificial hip joint Status: Acute Assessment and Plan: Left Total Hip for osteoarthritis. Progressing slowly, but doing ok. DS: Summary Hospital Course Hospital Course: Patient underwent ANNIE for Left Hip Osteoarthritis. he has progressed slowly, but is doing ok. Home Today. Status at Discharge Functional status at discharge: uses cane/walker Time Spent with Patient Time attestation: Total time spent providing and/or coordinating discharge services: Exam Narrative: Wd-A NVI Ambulating with a walker Eyes: General: appearance normal, both eyes and all related structures Neck: Neck: supple Resp: Effort & Inspection: normal respiratory effort Cardio: Rate: regular rate Rhythm: regular rhythm DS: Data Data Completed and Pending Labs on day of discharge: Labs from last 24 hours 02/29/24 02/29/24 02/28/24 07:29 07:01 19:52 WBC 11.8 H RBC 3.17 L Hgb 10.9 L Hct 32.9 L MCV 103.8 H MCH 34.4 H MCHC 33.1 RDW 12.6 Plt Count 251 MPV 9.9 Immature Gran % (Auto) 0.4 Neut % (Auto) 74.9 H Lymph % (Auto) 10.9 L [place] % (Auto) 13.5 H Eos % (Auto) 0.1 Baso % (Auto) 0.2 Lymph # (Auto) 1.28 [place] # (Auto) 1.6 H Eos # (Auto) 0.0 Baso # (Auto) 0.0 Abs Immat Gran (auto) 0.05 H Absolute Neuts (auto) 8.8 H Absolute Nucleated RBC 0.000 Nucleated RBC % 0.0 Sodium 132 L Potassium 3.9 Chloride 104 Carbon Dioxide 25 Anion Gap 3 L BUN 13 Creatinine 0.50 L Estim Creat Clear Calc 153 Estimated GFR > 60 Glucose 135 H POC Capillary Glucose 121 H 135 H Calcium 8.9 Total Bilirubin 0.6 AST 61 H ALT 18 Alkaline Phosphatase 70 Total Protein 7.0 Albumin 3.4 L 02/28/24 02/28/24 16:32 11:28 WBC RBC Hgb Hct MCV MCH MCHC RDW Plt Count MPV Immature Gran % (Auto) Neut % (Auto) Lymph % (Auto) [place] % (Auto) Eos % (Auto) Baso % (Auto) Lymph # (Auto) [place] # (Auto) Eos # (Auto) Baso # (Auto) Abs Immat Gran (auto) Absolute Neuts (auto) Absolute Nucleated RBC Nucleated RBC % Sodium Potassium Chloride Carbon Dioxide Anion Gap BUN Creatinine Estim Creat Clear Calc Estimated GFR Glucose POC Capillary Glucose 126 H 202 H Calcium Total Bilirubin AST ALT Alkaline Phosphatase Total Protein Albumin Discharge Plan Discharge Attending physician on discharge: Salvador Clark Consulting providers: Maritza Saldaña; Krista Messina Discharging Clinician: Salvador Clark Activity: no straining Diet: as tolerated Discharge Instructions: Per Care Coordination: Outpatient physical and occupational therapy ok to evaluate and treat. [facility] unable to accept your insurance. Please follow up with [facility] for outpatient therapy. Patient Language: Dutch Stand Alone Forms: General Discharge Information Follow-up/Referrals: Salvador Clark MD [Physician] - Discharge Medications: New hydrocodone-acetaminophen 7.5-325 mg tablet 1 tablet PO Q4H PRN (Reason: pain) Qty: 40 0RF doxycycline hyclate 100 mg tablet 100 mg PO DAILY Qty: 10 0RF Xarelto 10 mg tablet 10 mg PO DAILY Qty: 20 0RF Rx Instructions: for 20 days Continued tramadol 25 mg tablet 25 mg PO Q6H PRN (Reason: pain) montelukast [Singulair] 10 mg tablet 10 mg PO DAILY meloxicam 7.5 mg tablet 7.5 mg PO DAILY losartan 25 mg tablet 25 mg PO DAILY insulin glargine [Lantus U-100 Insulin] 100 unit/mL solution 10 unit subcut QAM Patient Comments: TAKES IN THE MORNING albuterol sulfate 90 mcg/actuation HFA aerosol inhaler 1 puff inhalation Q4H PRN (Reason: shortness of breath or wheezing) metformin 500 mg tablet 1,000 mg PO BID Trulicity 1.5 mg/0.5 mL pen injector 1.5 mg SUBCUT WEEKLY Patient Comments: TAKES ON SUNDAYS meloxicam 15 mg tablet 15 mg PO DAILY losartan-hydrochlorothiazide 50-12.5 mg tablet 1 tablet PO DAILY amlodipine 5 mg tablet 5 mg PO DAILY atorvastatin 10 mg tablet 10 mg PO EVERY OTHER DAY omeprazole 40 mg capsule,delayed release(DR/EC) 40 mg PO DAILY ascorbic acid (vitamin C) [C-500] 500 mg tablet 500 mg PO DAILY omega 7-ttv-tff-fish oil [Fish Oil] 60-90-500 mg capsule 1 cap PO DAILY milk thistle 150 mg capsule 150 mg PO DAILY Rx Instructions: give with meal/snack naproxen sodium [Aleve] 220 mg tablet 440 mg PO Q8-12H PRN (Reason: pain) acetaminophen [Acetaminophen Extra Strength] 500 mg tablet 1,000 mg PO Q6H PRN (Reason: pain) Date of admission: 02/28/24 18:07 Primary Care Provider: Fox,Zohra Hankins Admitting Provider: Salvador Clark Attending physician on admission: Salvador Clark
[2024-02-29 12:48] LABS: Glucose Point of Care 142 mg/dl (65-105)
--- OUTSIDE RECORDS SUMMARY | 2024-03-05 02:20 | XMS_ITS ---
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 Left hip knee and back pain Comparison: NoneTechnique: AP and frog views of the left hip were obtained. AP view of pelvis obtained as well.Findings: Minimal degenerative changes in the lower lumbar spine. Sacral struts intact. SI joints unremarkable. The inner pelvic rim is intact. Tiny pelvic phleboliths are noted. Complete joint space loss in the left hip with partial collapse of the femoral head with adjacent remodeling and eburnation. Subtle foreshortening of the left lower limb. Mild to moderate osteoarthritic changes in the right hip. IMPRESSION: 1. Complete joint space loss in the left hip with partial collapse and remodeling of the femoral head and acetabulum with eburnation. Underlying avascular necrosis or other pathology not excluded. Created and Electronically Signed by:Zenon Loving MD01/03/2024 07:42 KNEE 3 (L) - Completed: 12/06 10:51 LOINC: Examination: Left knee 3 vie wsAccession: [id number] Date/Time: 01/02/2024 9:55 AM Reason For Exam: Fall several months ago. Left hip pain an knee pain and back painComparison: NoneTechnique: 3 views of the left knee were obtained.Findings: No significant joint effusion. Tiny tibial plateau spur. Joint spaces relatively preserved. No fracture or dislocation. No destructive osseous lesions. No radiopaque foreign bodies.=====IMPRESSION:=====1. Minimal early osteoarthritic changes with no acute osseous abnormality Created and Electronically Signed by:Zenon Loving MD01/03/2024 07:40 LS SPINE 2/3 VIEWS - Complet ed: 01/02/2024 10:29 LOINC: Examination: Lumbar Spine, 3 viewsAccession: [id number] Date/Time: 01/02/2024 9:55 AM Reason For Exam: Left hip pain and knee pain and back pain, fall several months agoComparison: NoneTechnique: AP, lateral, and spot lumbosacral lateral views of the lumbar spine are obtained.Findings: Very limited evaluation due to underpenetration on multiple images. Only the frontal image is repeated with appropriate technique. Repeat exam recommended.=====IMPRESSION:=====1. Suboptimal technique on 2 of the 3 images. Repeat evaluation recommended. Created and Electronically Signed by:Zenon Loving MD01/03/2024 07:47 Social History Type Status Start Date End Date Code Code Syst em Smoking History Former smoker 6371044 SNOMED CT Sex Male Medications Medication Start Date End Date Route Frequency Dose Code Code System Medication Instructions Home Meds amLODIPine Besylate 5MG Oral Tablet 12/29/2023 Unknown By Mouth Daily 1 TABLET 786615 RxNorm 1 TABLET By Mouth Daily metFORMIN HCl 500MG Oral Tablet 12/29/2023 Unknown By Mouth Four times a day 1 TABLET 914124 RxNorm 1 TABLET By Mouth Four times a day Meloxicam 15MG Oral Tablet 12/29/2023 Unknown By Mouth Daily 1 TABLET 609436 RxNorm 1 TABLET By Mouth Daily Trelegy Ellipta 200/62.5/25MC G/INH Inhalation Powder 12/29/2023 Unknown Inhale Daily 1 PUFF(S) 7433657 RxNorm 1 PUFF(S) Inhale Daily As needed Albuterol Sulfate HFA 0.09MG/1Actua tion Inhalation Suspension 12/29/2023 Unknown Inhale Every 4 hours 2 Puff 4710205 RxNorm 2 Puff Inhale Every 4 hours As needed Lantus 100U/1ML Subcutaneous Solution 12/29/2023 Unknown Subcutaneous 722348 RxNorm UNIT Subcutaneous Losartan Potassium-hyd roCHLOROthiaz annalee 50MG-12.5MG Oral Tablet 12/29/2023 Unknown By Mouth Daily 1 TABLET 782118 RxNorm 1 TABLET By Mouth Daily Montelukast Sodium 10MG Oral Tablet 12/29/2023 Unknown By Mouth Daily 1 TABLET 427101 RxNorm 1 TABLET By Mouth Daily At bedtime Trulicity 1.5MG/0.5ML Subcutaneous Solution 12/29/2023 Unknown Subcutaneous Once a week 1 UNIT 8657612 RxNorm 1 UNIT Subcutaneous Once a week traMADol HCl 50MG Oral Tablet 02/13/2024 02/13/20 24 By Mouth Twice a day 1 TABLET 981835 RxNorm 1 TABLET By Mouth Twice a day traMADol HCl 50MG Oral Tablet 02/13/2024 Unknown By Mouth Twice a day 1 TABLET 319599 RxNorm 1 TABLET By Mouth Twice a day Narcan 4MG/0.1ML Nasal [place] 02/13/2024 Unknown Nasal As needed 1 Sprays 3448455 RxNorm 1 Sprays Nasal As needed Assessment You had the following problems:TYPE 2 DIABETESHYPERLIPIDEMIAMORBID OBESITYESSENTIAL HYPERTENSIONCHRONIC ASTHMATIC BRONCHITISMILD INTERMITTENT ASTHMAMULTIPLE LUNG NODULESLESION OF TONGUEGASTROESOPHAGEAL REFLUXTROCHANTERIC BURSITIS, LEFT HIP Hospital Discharge Instructions Should you have any questions prior to discharge, please contact a member of your healthcare team. If you have left the hospital and have any questions, please contact your primary care physician. Reason For Referral No Data Found Problems Problem Start Date Resolved Date Status Code Code System TYPE 2 DIABETES 10/13/2021 active 55844290 SNO MED-CT HYPERLIPIDEMIA 06/12/2021 active 52987250 SNOM ED-CT MORBID OBESITY 06/12/2021 active 429826881 SNOM ED-CT ESSENTIAL HYPERTENSION 04/12/2022 active 368626 00 SNOMED-CT CHRONIC ASTHMATIC BRONCHITIS 06/12/2021 active 589958162 SNOMED-CT MILD INTERMITTENT ASTHMA 04/12/2022 active 4276 94869 SNOMED-CT MULTIPLE LUNG NODULES 06/12/2021 active 8074119 1 SNOMED-CT LESION OF TONGUE 05/17/2022 active 101022844 SN OMED-CT GASTROESOPHAGEAL REFLUX 04/12/2022 active 16719 5009 SNOMED-CT TROCHANTERIC BURSITIS, LEFT HIP 07/11/2023 active 639050824624667 SNOMED-CT Allergies and Adverse Reactions Allergy Substance Reaction Severity Start Date Concern Status Code Code System NEXIUM ANAPHYLAXIS (SNOMED-CT: null) Severe Active 230765 RxNorm Plan of Treatment No Data Found Encounters Encounter Diagnosis Start Date Code Code Sys tem 01/02/2024 [id number] SNOMED-CT Personal Care Team Section Performer Name Performer Role Active Date Inactive Da te
--- OUTSIDE RECORDS SUMMARY | 2024-03-05 02:21 | XMS_ITS ---
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 Role Phone KAMILLE BOOGIE Attending Unavailable JESSICA SIM ANP-Betsy Primary Unavailable Immunization Immunization Date Status Additional Notes Code Code System Pneumococcal conjugate PCV20 , polysaccharide MSU784 conjugate, adjuvant, PF 10/25/2022 Completed 216 CVX COVID-19, mRNA, LNP-S, PF, 1 00 mcg/0.5mL dose or 50 mcg/0.25mL dose 04/17/2021 Completed 207 CVX COVID-19, mRNA, LNP-S, PF, 1 00 mcg/0.5mL dose or 50 mcg/0.25mL dose 07/15/2020 Completed 207 CVX COVID-19, mRNA, LNP-S, PF, 1 00 mcg/0.5mL dose or 50 mcg/0.25mL dose 06/19/2020 Completed 207 CVX zoster recombinant 10/25/2022 Completed 187 CVX zoster recombinant 04/12/2022 Completed 187 CVX Influenza, MDCK, quadrivalen t, PF 12/17/2021 Completed 171 CVX Influenza, MDCK, quadrivalen t, PF 12/14/2019 Completed 171 CVX Influenza, split virus, quadrivalent, preservative 01/12/2019 Completed 158 C VX Influenza, split virus, quadrivalent, PF 01/25/2023 Completed 150 CVX Influenza, split virus, quadrivalent, PF 12/15/2020 Completed 150 CVX Influenza, high-dose, trivalent, PF 12/30/2023 Completed 135 CVX Tdap 04/12/2022 Completed 115 CVX Social History Type Status Start Date End Date Code Code Syst em Smoking History Former smoker 9440496 SNOMED CT Sex Male Vital Signs Vital Sign Value Unit Ethel Value Ethel Unit Date/Time Recent/Initial? Code Code System Body Mass Index 35.98 kg/m2 02/13/2024 13:52 Initial 14080 -5 LOINC Systolic Blood Pressure 134 mm[Hg] 02/13/2024 13:52 Initial 8480- 6 LOINC Diastolic Blood Pressure 84 mm[Hg] 02/13/2024 13:52 Initial 8462- 4 [facility] Body Surface Area 2.42 m2 02/13/2024 13:52 Initial 3140- 1 LOINC Height 180.340 0 cm 71.00 in 02/13/2024 13:52 Initial 8302- 2 [facility] O2 Saturation 99 % 2023 13:52 [facility] 44527 -[facility] Pulse 69.0 /min 02/13/2024 13:52 Initial 8867- 4 [facility] Respiration 20 /min 02/13/20 13:52 Initial 9279- 1 INC Temperature 36.7 Ara 98.0 F 02/13/20 13:52 Initial 8310- 5 INC Weight 117.03 kg 258.00 lbs 02/13/2024 13:52 Initial 43392 -7 [facility] Medications Medication Start Date End Date Route Frequency Dose Code Code System Medication Instructions Home Meds amLODIPine Besylate 5MG Oral Tablet 12/29/2023 Unknown By Mouth Daily 1 TABLET 232317 RxNorm 1 TABLET By Mouth Daily metFORMIN HCl 500MG Oral Tablet 12/29/2023 Unknown By Mouth Four times a day 1 TABLET 286454 RxNorm 1 TABLET By Mouth Four times a day Meloxicam 15MG Oral Tablet 12/29/2023 Unknown By Mouth Daily 1 TABLET 349274 RxNorm 1 TABLET By Mouth Daily Trelegy Ellipta 200/62.5/25MC G/INH Inhalation Powder 12/29/2023 Unknown Inhale Daily 1 PUFF(S) 1916362 RxNorm 1 PUFF(S) Inhale Daily As needed Albuterol Sulfate HFA 0.09MG/1Actua tion Inhalation Suspension 12/29/2023 Unknown Inhale Every 4 hours 2 Puff 3281437 RxNorm 2 Puff Inhale Every 4 hours As needed Lantus 100U/1ML Subcutaneous Solution 12/29/2023 Unknown Subcutaneous 291874 RxNorm UNIT Subcutaneous Losartan Potassium-hyd roCHLOROthiaz annalee 50MG-12.5MG Oral Tablet 12/29/2023 Unknown By Mouth Daily 1 TABLET 249470 RxNorm 1 TABLET By Mouth Daily Montelukast Sodium 10MG Oral Tablet 12/29/2023 Unknown By Mouth Daily 1 TABLET 392814 RxNorm 1 TABLET By Mouth Daily At bedtime Trulicity 1.5MG/0.5ML Subcutaneous Solution 12/29/2023 Unknown Subcutaneous Once a week 1 UNIT 0718854 RxNorm 1 UNIT Subcutaneous Once a week traMADol HCl 50MG Oral Tablet 02/13/2024 02/13/20 24 By Mouth Twice a day 1 TABLET 993514 RxNorm 1 TABLET By Mouth Twice a day traMADol HCl 50MG Oral Tablet 02/13/2024 Unknown By Mouth Twice a day 1 TABLET 266077 RxNorm 1 TABLET By Mouth Twice a day Narcan 4MG/0.1ML Nasal [place] 02/13/2024 Unknown Nasal As needed 1 Sprays 7562508 RxNorm 1 Sprays Nasal As needed Assessment [...] Code System TYPE 2 DIABETES 10/13/2021 active 43073827 SNO MED-CT HYPERLIPIDEMIA 06/12/2021 active 63145993 SNOM ED-CT MORBID OBESITY 06/12/2021 active 469041575 SNOM ED-CT ESSENTIAL HYPERTENSION 04/12/2022 active 676259 00 SNOMED-CT CHRONIC ASTHMATIC BRONCHITIS 06/12/2021 active 582939791 SNOMED-CT MILD INTERMITTENT ASTHMA 04/12/2022 active 4276 18511 SNOMED-CT MULTIPLE LUNG NODULES 06/12/2021 active 9752493 1 SNOMED-CT LESION OF TONGUE 05/17/2022 active 845840066 SN OMED-CT GASTROESOPHAGEAL REFLUX 04/12/2022 active 13345 5009 SNOMED-CT TROCHANTERIC BURSITIS, LEFT HIP 07/11/2023 active 586021080850144 SNOMED-CT Allergies and Adverse Reactions Allergy Substance Reaction Severity Start Date Concern Status Code Code System NEXIUM ANAPHYLAXIS (SNOMED-CT: null) Severe Active 018151 RxNorm Plan of Treatment No Data Found Encounters Encounter Diagnosis Start Date Code Code Sys tem Degeneration of lumbar intervertebral disc 02/13/2024 75749547 SNOMED-CT Personal Care Team Section Performer Name Performer Role Active Date Inactive Da te
--- OUTSIDE RECORDS SUMMARY | 2024-03-05 02:21 | XMS_ITS | Data Portability ---
Author Organization [place] - [facility], [facility] Address [address] [place] [address] Care Team Providers Care Hvac Designer Name Role Phone ZOHRA BRAXTON Primary Care Provider Assessment No assessment recorded. Plan of Treatment Reminders Order Date Submit Date Provider Last Modified By Organization Details Last Modified Time Details Appointments None recorded. Lab HbA1c (hemoglobin A1c), blood 2022 023 [facility], [address], [place], [address], 4 07:12:07 lipid panel, serum 2022 023 [facility], [address], [place], [address], 4 07:12:06 CMP, serum or plasma 2022 023 [facility], [address], [place], [address], 4 07:12:05 HbA1c (hemoglobin A1c), blood 2023 024 [email or web address] [facility], [address], [place], [address], 4 09:39:49 lipid panel, serum 2023 024 [email or web address], [address], [place], [address], 4 09:40:00 CMP, serum or plasma 2023 024 [email or web address] [facility], [address], [place], [address], 4 09:39:37 HbA1c (hemoglobin A1c), blood 2023 024 [facility], [address], [place], [address], 4 07:12:21 microalbumi n/creatinin e, mass ratio, urine 2023 024 [facility], [address], [place], [address], 4 07:12:21 CBC w/ auto diff 2023 024 [facility], [address], [place], [address], 4 07:12:19 lipid panel, serum 2023 024 [facility], [address], [place], [address], 4 07:12:20 CMP, serum or plasma 2023 024 [facility], [address], [place], [address], 4 07:12:20 Referral orthopedic surgeon referral 2023 024 [facility], [address], [address], [place], [address], 4 20:52:47 Procedures None recorded. Surgeries None recorded. Imaging None recorded. Medication Orders Trelegy Ellipta 200 mcg-62.5 mcg-25 mcg powder for inhalation 2022 023 [facility], [address] [place], [address], 3 09:32:24 Ozempic 2 mg/dose (8 mg/3 mL) subcutaneou s pen injector [address] [facility], [address] [place], [address], 4 13:36:29 metformin ER 500 mg tablet,exte nded release 24 hr 2023 024 [place] [address], [address] [place], [address], 4 09:45:16 losartan 50 mg-hydrochl orothiazide 12.5 mg tablet 2023 024 [place] [address], [address] [place] [address], [address], 4 09:45:13 amlodipine 5 mg tablet 2023 024 [place] [address], [address] [place], [address], 4 09:45:21 omeprazole 40 mg capsule,del ayed release 2023 024 [place] [address], [address] [place], [address], 4 09:45:23 montelukast 10 mg tablet 2023 024 [place] [address], [address] [place], [address], 4 10:59:42 Trelegy Ellipta 200 mcg-62.5 mcg-25 mcg powder for inhalation 2023 024 [facility], [address] [place] [address], [address], 4 09:45:10 albuterol sulfate HFA 90 mcg/actuati on aerosol inhaler 2023 024 [facility], [address] [place], [address], 4 09:45:25 montelukast 10 mg tablet 2023 024 [facility], [address] [place] [address], [address], 4 15:50:19 Patient TargetsNo targets recorded. Patient InstructionsNo instructions recorded. Reason for Referral Orthopedic Surgeon Referral for Trochanteric bursitis of left hip left hip pain Referring Physician: Zohra Braxton, Family Medicine, Encounter Date: 07/11/2023 Results Created Date Observation Date Name Description Value Unit Range Abnormal Flag Note LastModifiedBy Organization Detail LastModifiedTime 03/31/1904/01/2023 COMP. METAB OLIC PANEL (14) glucose 93 mg/dL 70-99 Not Available [facility] ([facility]) [address] [place], [address], 04/01/2023 08:20:08 03/31/19 24 04/01/2023 COMP. METAB OLIC PANEL (14) BUN 22 mg/dL 8-27 Not Available [facility] ([facility]) [address] [place], [address], 04/01/2023 08:20:08 03/31/19 24 04/01/2023 COMP. METAB OLIC PANEL (14) creatinine 0.82 mg/dL 0.76-1 .27 Not Available [facility] ([facility]) [address] [place], [address], 04/01/2023 08:20:08 03/31/19 24 04/01/2023 COMP. METAB OLIC PANEL (14) eGFR 97 mL/mi n/1.7 3 >59 Not Available [facility] ([facility]) [address] [facility], [place], [address], 04/01/2023 08:20:08 03/31/19 24 04/01/2023 COMP. METAB OLIC PANEL (14) BUN/creatini ne ratio 27 10-24 above high normal Not Available [facility] ([facility]) [address] [facility], [place], [address], 04/01/2023 08:20:08 03/31/19 24 04/01/2023 COMP. METAB OLIC PANEL (14) sodium 141 mmol/ L 134-14 4 Not Available [facility] ([facility]) [address] [facility], [place], [address], 04/01/2023 08:20:08 03/31/19 24 04/01/2023 COMP. METAB OLIC PANEL (14) potassium 4.7 mmol/ L 3.5-5. 2 Not Available [facility] ([facility]) [address] [facility], [place], [address], 04/01/2023 08:20:08 03/31/19 24 04/01/2023 COMP. METAB OLIC PANEL (14) chloride 103 mmol/ L 96-106 Not Available [facility] ([facility]) [address] [place], [address], 04/01/2023 08:20:08 03/31/19 24 04/01/2023 COMP. METAB OLIC PANEL (14) carbon dioxide, total 19 mmol/ L 20-29 below low normal Not Available [facility] ([facility]) [address] [place], [address], 04/01/2023 08:20:08 03/31/19 24 04/01/2023 COMP. METAB OLIC PANEL (14) calcium 9.7 mg/dL 8.6-10 .2 Not Available [facility] ([facility]) [address] [facility] [place], [address], 04/01/2023 08:20:08 03/31/19 24 04/01/2023 COMP. METAB OLIC PANEL (14) protein, total 7.4 g/dL 6.0-8. 5 Not Available [facility] ([facility] [address] [facility], [address], 04/01/2023 08:20:08 03/31/19 24 04/01/2023 COMP. METAB OLIC PANEL (14) albumin 4.3 g/dL 3.9-4. 9 Not Available [facility] ([facility]) [address] [place], [address], 04/01/2023 08:20:08 03/31/19 24 04/01/2023 COMP. METAB OLIC PANEL (14) globulin, total 3.1 g/dL 1.5-4. 5 Not Available [facility] ([facility]) [address] [facility] [place], [address], 04/01/2023 08:20:08 03/31/19 24 04/01/2023 COMP. METAB OLIC PANEL (14) A/G ratio 1.4 1.2-2. 2 Not Available [facility] ([facility]) [address] [facility] [place], [address], 04/01/2023 08:20:08 03/31/19 24 04/01/2023 COMP. METAB OLIC PANEL (14) bilirubin, total 0.4 mg/dL 0.0-1. 2 Not Available [facility] ([facility]) [address] [facility] [place], [address], 04/01/2023 08:20:08 03/31/19 24 04/01/2023 COMP. METAB OLIC PANEL (14) alkaline phosphatase 84 IU/L 44-121 Not Available [facility]) [address] [place], [address], 04/01/2023 08:20:08 03/31/19 24 04/01/2023 COMP. METAB OLIC PANEL (14) AST (SGOT) 32 IU/L 0-40 Not Available [facility] ([facility]) [address] [place], [address], 04/01/2023 08:20:08 03/31/19 24 04/01/2023 COMP. METAB OLIC PANEL (14) ALT (SGPT) 30 IU/L 0-44 Not Available [facility] ([facility]) [address] [place], [address], 04/01/2023 08:20:08 03/31/19 24 04/01/2023 LIPID PANEL cholesterol, total 196 mg/dL 100-19 9 Not Available [facility] ([facility]) [address] [place], [address], 04/01/2023 08:20:08 03/31/19 24 04/01/2023 LIPID PANEL triglyceride s 175 mg/dL 0-149 above high normal Not Available [facility] ([facility]) [address] [place], [address], 04/01/2023 08:20:08 03/31/19 24 04/01/2023 LIPID PANEL HDL cholesterol 41 mg/dL >39 Not Available [facility]) [address] [place], [address], 04/01/2023 08:20:08 03/31/19 24 04/01/2023 LIPID PANEL VLDL cholesterol serena 31 mg/dL 5-40 Not Available [facility] ([facility]) [address] [place], [address], 04/01/2023 08:20:08 03/31/19 24 04/01/2023 LIPID PANEL LDL chol calc ([facility]) 124 mg/dL 0-99 above high normal Not Available [facility] ([facility]) [address] [facility], [place], [address], 04/01/2023 08:20:08 03/31/1904/01/2023 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 6 above high normal Predi abete s: 5.7 - 6.4 Diabe benja: >6.4 Glyce neftali contr ol for adult s with diabe benja: <7.0 Not Available [facility] ([facility]) [address] [facility], [place], [address], 04/01/2023 07:12:07 07/29/19 24 07/30/2023 CBC WITH DIFFE RENTI AL/PL ATELE T WBC 8.3 x10e3 /uL 3.4-10 .8 Not Available [facility] ([facility]) [address] [facility], [place], [address], 07/30/2023 07:12:14 07/29/19 24 07/30/2023 CBC WITH DIFFE RENTI AL/PL ATELE T RBC 4.98 x10e6 /uL 4.14-5 .80 Not Available [facility] ([facility]) [address] [facility], [place], [address], 07/30/2023 07:12:14 07/29/19 24 07/30/2023 CBC WITH DIFFE RENTI AL/PL ATELE T hemoglobin 15.7 g/dL 13.0-1 7.7 Not Available [facility] ([facility]) [address] [facility], [place], [address], 07/30/2023 07:12:14 07/29/19 24 07/30/2023 CBC WITH DIFFE RENTI AL/PL ATELE T hematocrit 47.8 % 37.5-5 1.0 Not Available [facility] ([facility]) [address] [facility], [place], [address], 07/30/2023 07:12:14 07/29/19 24 07/30/2023 CBC WITH DIFFE RENTI AL/PL ATELE T MCV 96 fL 79-97 Not Available [facility] ([facility]) [address] [facility], [place], [address], 07/30/2023 07:12:14 07/29/1907/30/2023 CBC WITH DIFFE RENTI AL/PL ATELE T MCH 31.5 pg 26.6-3 3.0 Not Available [facility] ([facility]) [address] [facility], [place], [address], 07/30/2023 07:12:14 07/29/19 24 07/30/2023 CBC WITH DIFFE RENTI AL/PL ATELE T MCHC 32.8 g/dL 31.5-3 5.7 Not Available [facility] ([facility]) [address] [facility], [place], [address], 07/30/2023 07:12:14 07/29/1907/30/2023 CBC WITH DIFFE RENTI AL/PL ATELE T RDW 12.3 % 11.6-1 5.4 Not Available [facility] ([facility]) [address] [place], [address], 07/30/2023 07:12:14 07/29/1907/30/2023 CBC WITH DIFFE RENTI AL/PL ATELE T platelets 237 x10e3 /uL 150-45 0 Not Available [facility] ([facility]) [address] [place], [address], 07/30/2023 07:12:14 07/29/1907/30/2023 CBC WITH DIFFE RENTI AL/PL ATELE T neutrophils 58 % not estab. Not Available [facility] ([facility]) [address] [facility], [place], [address], 07/30/2023 07:12:14 07/29/19 24 07/30/2023 CBC WITH DIFFE RENTI AL/PL ATELE T lymphs 29 % not estab. Not Available [facility] ([facility]) [address] [facility], [place], [address], 07/30/2023 07:12:14 07/29/19 24 07/30/2023 CBC WITH DIFFE RENTI AL/PL ATELE T monocytes 11 % not estab. Not Available [facility] ([facility]) [address] [facility], [place], [address], 07/30/2023 07:12:14 07/29/1907/30/2023 CBC WITH DIFFE RENTI AL/PL ATELE T eos 2 % not estab. Not Available [facility] ([facility]) [address] [facility], [place], [address], 07/30/2023 07:12:14 07/29/1907/30/2023 CBC WITH DIFFE RENTI AL/PL ATELE T basos 0 % not estab. 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 0 Not Available [facility] ([facility]) [address] [facility], [place], [address], 07/30/2023 07:12:14 07/29/19 24 07/30/2023 CBC WITH DIFFE RENTI AL/PL ATELE T lymphs (absolute) 2.4 x10e3 /uL 0.7-3. 1 Not Available [facility] ([facility]) [address] [facility], [place], [address], 07/30/2023 07:12:14 07/29/19 24 07/30/2023 CBC WITH DIFFE RENTI AL/PL ATELE T monocytes(ab solute) 0.9 x10e3 /uL 0.1-0. 9 Not Available [facility] ([facility]) [address] [facility], [place], [address], 07/30/2023 07:12:14 07/29/19 24 07/30/2023 CBC WITH DIFFE RENTI AL/PL ATELE T eos (absolute) 0.1 x10e3 /uL 0.0-0. 4 Not Available [facility] ([facility]) [address] [facility], [place], [address], 07/30/2023 07:12:14 07/29/19 24 07/30/2023 CBC WITH DIFFE RENTI AL/PL ATELE T baso (absolute) 0.0 x10e3 /uL 0.0-0. 2 Not Available [facility] ([facility]) [address] [facility], [place], [address], 07/30/2023 07:12:14 07/29/19 24 07/30/2023 CBC WITH DIFFE RENTI AL/PL ATELE T immature granulocytes 0 % not estab. Not Available [facility] ([facility]) [address] [facility], [place], [address], 07/30/2023 07:12:14 07/29/19 24 07/30/2023 CBC WITH DIFFE RENTI AL/PL ATELE T immature grans (abs) 0.0 x10e3 /uL 0.0-0. 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 METAB OLIC PANEL (14) glucose 93 mg/dL 70-99 Not Available [facility] ([facility]) [address] [facility], [address], 07/30/2023 10:37:10 07/29/19 24 07/30/2023 COMP. METAB OLIC PANEL (14) BUN 29 mg/dL 8-27 above high normal Not Available [facility] ([facility]) [address] [facility] [place], [address], 07/30/2023 10:37:10 07/29/19 24 07/30/2023 COMP. METAB OLIC PANEL (14) creatinine 0.89 mg/dL 0.76-1 .27 Not Available [facility] ([facility]) [address] [facility] [place], [address], 07/30/2023 10:37:10 07/29/19 24 07/30/2023 COMP. METAB OLIC PANEL (14) eGFR 95 mL/mi n/1.7 3 >59 Not Available [facility] ([facility]) [address] [facility], [address], 07/30/2023 10:37:10 07/29/19 24 07/30/2023 COMP. METAB OLIC PANEL (14) BUN/creatini ne ratio 33 10-24 above high normal Not Available [facility] ([facility]) [address] [facility], [address], 07/30/2023 10:37:10 07/29/19 24 07/30/2023 COMP. METAB OLIC PANEL (14) sodium 139 mmol/ L 134-14 4 Not Available [facility] ([facility]) [address] [facility] [place], [address], 07/30/2023 10:37:10 07/29/19 24 07/30/2023 COMP. METAB OLIC PANEL (14) potassium 5.3 mmol/ L 3.5-5. 2 above high normal Not Available [facility] ([facility]) [address] [facility], [address], 07/30/2023 10:37:10 07/29/19 24 07/30/2023 COMP. METAB OLIC PANEL (14) chloride 103 mmol/ L 96-106 Not Available [facility] ([facility]) [address] [facility] [place], [address], 07/30/2023 10:37:10 07/29/19 24 07/30/2023 COMP. METAB OLIC PANEL (14) carbon dioxide, total 21 mmol/ L 20-29 Not Available [facility] ([facility]) [address] [facility], [address], 07/30/2023 10:37:10 07/29/19 24 07/30/2023 COMP. METAB OLIC PANEL (14) calcium 9.8 mg/dL 8.6-10 .2 Not Available [facility] ([facility]) [address] [facility] [place], [address], 07/30/2023 10:37:10 07/29/19 24 07/30/2023 COMP. METAB OLIC PANEL (14) protein, total 7.3 g/dL 6.0-8. 5 Not Available [facility] ([facility]) [address] [facility], [place], [address], 07/30/2023 10:37:10 07/29/19 24 07/30/2023 COMP. METAB OLIC PANEL (14) albumin 4.5 g/dL 3.9-4. 9 Not Available [facility] ([facility]) [address] [facility], [place], [address], 07/30/2023 10:37:10 07/29/19 24 07/30/2023 COMP. METAB OLIC PANEL (14) globulin, total 2.8 g/dL 1.5-4. 5 Not Available [facility] ([facility]) [address] [facility], [place], [address], 07/30/2023 10:37:10 07/29/19 24 07/30/2023 COMP. METAB OLIC PANEL (14) A/G ratio 1.6 1.2-2. 2 Not Available [facility] ([facility]) [address] [facility], [place], [address], 07/30/2023 10:37:10 07/29/19 24 07/30/2023 COMP. METAB OLIC PANEL (14) bilirubin, total 0.4 mg/dL 0.0-1. 2 Not Available [facility] ([facility]) [address] [facility], [place], [address], 07/30/2023 10:37:10 07/29/19 24 07/30/2023 COMP. METAB OLIC PANEL (14) alkaline phosphatase 73 IU/L 44-121 Not Available [facility]) [address] [facility], [place], [address], 07/30/2023 10:37:10 07/29/19 24 07/30/2023 COMP. METAB OLIC PANEL (14) AST (SGOT) 26 IU/L 0-40 Not Available [facility] ([facility]) [address] [facility], [address], 07/30/2023 10:37:10 07/29/19 24 07/30/2023 COMP. METAB OLIC PANEL (14) ALT (SGPT) 19 IU/L 0-44 Not Available [facility] ([facility]) [address] [place], [address], 07/30/2023 10:37:10 07/29/19 24 07/30/2023 LIPID PANEL cholesterol, total 160 mg/dL 100-19 9 Not Available [facility] ([facility]) [address] [place], [address], 07/30/2023 10:37:11 07/29/19 24 07/30/2023 LIPID PANEL triglyceride s 196 mg/dL 0-149 above high normal Not Available [facility] ([facility]) [address] [place], [address], 07/30/2023 10:37:11 07/29/19 24 07/30/2023 LIPID PANEL HDL cholesterol 43 mg/dL >39 Not Available [facility]) [address] [place], [address], 07/30/2023 10:37:11 07/29/19 24 07/30/2023 LIPID PANEL VLDL cholesterol serena 33 mg/dL 5-40 Not Available [facility] ([facility]) [address] [place], [address], 07/30/2023 10:37:11 07/29/19 24 07/30/2023 LIPID PANEL LDL chol calc ([facility]) 84 mg/dL 0-99 Not Available [facility]) [address] [place], [address], 07/30/2023 10:37:11 07/29/19 24 07/30/2023 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 Not Available [facility] ([facility]) [address] [place], [address], 07/30/2023 09:12:44 07/29/19 24 07/30/2023 ALBUM IN/CR EAT RATIO , RANDO M UR albumin, urine 12.4 ug/mL not estab. Not Available [facility] ([facility]) [address] [place], [address], 07/30/2023 09:12:44 07/29/19 24 07/30/2023 ALBUM IN/CR EAT RATIO , RANDO M UR alb/creat ratio 9 mg/g_ creat 0-29 Bhavna l: 0 - 29 Moder ately incre ased: 30 - 300 Sever rudy incre ased: >300 Not Available [facility] ([facility]) [address] [facility], [place], [address], 07/30/2023 09:12:44 07/29/19 24 07/30/2023 HEMOG LOBIN A1C hemoglobin A1C 5.7 % 4.8-5. 6 above high normal Predi abete s: 5.7 - 6.4 Diabe benja: >6.4 Glyce neftali contr ol for adult s with diabe benja: <7.0 Not Available [facility] ([facility]) [address] [place], [address], 07/30/2023 09:12:44 10/25/19 24 10/26/2023 CBC WITH DIFFE RENTI AL/PL ATELE T WBC 10.5 x10e3 /uL 3.4-10 .8 normal Not Available [facility] ([facility]) [address] [facility], [place], [address], 10/26/2023 07:12:19 10/25/19 24 10/26/2023 CBC WITH DIFFE RENTI AL/PL ATELE T RBC 4.56 x10e6 /uL 4.14-5 .80 normal Not Available [facility] ([facility]) [address] [facility], [place], [address], 10/26/2023 07:12:19 10/25/19 24 10/26/2023 CBC WITH DIFFE RENTI AL/PL ATELE T hemoglobin 15.2 g/dL 13.0-1 7.7 normal Not Available [facility] ([facility]) [address] [facility], [place], [address], 10/26/2023 07:12:19 10/25/19 24 10/26/2023 CBC WITH DIFFE RENTI AL/PL ATELE T hematocrit 45.7 % 37.5-5 1.0 normal Not Available [facility] ([facility]) [address] [place], [address], 10/26/2023 07:12:19 10/25/19 24 10/26/2023 CBC WITH DIFFE RENTI AL/PL ATELE T MCV 100 fL 79-97 above high normal Not Available [facility] ([facility]) [address] [place], [address], 10/26/2023 07:12:19 10/25/19 24 10/26/2023 CBC WITH DIFFE RENTI AL/PL ATELE T MCH 33.3 pg 26.6-3 3.0 above high normal Not Available [facility] ([facility]) [address] [place], [address], 10/26/2023 07:12:19 10/25/19 24 10/26/2023 CBC WITH DIFFE RENTI AL/PL ATELE T MCHC 33.3 g/dL 31.5-3 5.7 normal Not Available [facility] ([facility]) [address] [facility], [place], [address], 10/26/2023 07:12:19 10/25/19 24 10/26/2023 CBC WITH DIFFE RENTI AL/PL ATELE T RDW 12.4 % 11.6-1 5.4 Not Available [facility] ([facility]) [address] [facility], [place], [address], 10/26/2023 07:12:19 10/25/19 24 10/26/2023 CBC WITH DIFFE RENTI AL/PL ATELE T platelets 293 x10e3 /uL 150-45 0 normal Not Available [facility] ([facility]) [address] [facility], [place], [address], 10/26/2023 07:12:19 10/25/19 24 10/26/2023 CBC WITH DIFFE RENTI AL/PL ATELE T neutrophils 59 % not estab. normal Not Available [facility] ([facility]) [address] [facility], [place], [address], 10/26/2023 07:12:19 10/25/19 24 10/26/2023 CBC WITH DIFFE RENTI AL/PL ATELE T lymphs 28 % not estab. normal Not Available [facility] ([facility]) [address] [facility], [place], [address], 10/26/2023 07:12:19 10/25/19 24 10/26/2023 CBC WITH DIFFE RENTI AL/PL ATELE T monocytes 10 % not estab. normal Not Available [facility] ([facility]) [address] [place], [address], 10/26/2023 07:12:19 10/25/19 24 10/26/2023 CBC WITH DIFFE RENTI AL/PL ATELE T eos 1 % not estab. normal Not Available [facility] ([facility]) [address] [place], [address], 10/26/2023 07:12:19 10/25/19 24 10/26/2023 CBC WITH DIFFE RENTI AL/PL ATELE T basos 1 % not estab. 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 0 normal Not Available [facility] ([facility]) [address] [facility], [place], [address], 10/26/2023 07:12:19 10/25/19 24 10/26/2023 CBC WITH DIFFE RENTI AL/PL ATELE T lymphs (absolute) 2.9 x10e3 /uL 0.7-3. 1 normal Not Available [facility] ([facility]) [address] [facility], [place], [address], 10/26/2023 07:12:19 10/25/19 24 10/26/2023 CBC WITH DIFFE RENTI AL/PL ATELE T monocytes(ab solute) 1.0 x10e3 /uL 0.1-0. 9 above high normal Not Available [facility] ([facility]) [address] [facility], [place], [address], 10/26/2023 07:12:19 10/25/19 24 10/26/2023 CBC WITH DIFFE RENTI AL/PL ATELE T eos (absolute) 0.2 x10e3 /uL 0.0-0. 4 normal Not Available [facility] ([facility]) [address] [facility], [place], [address], 10/26/2023 07:12:19 10/25/19 24 10/26/2023 CBC WITH DIFFE RENTI AL/PL ATELE T baso (absolute) 0.1 x10e3 /uL 0.0-0. 2 normal Not Available [facility] ([facility]) [address] [facility], [place], [address], 10/26/2023 07:12:19 10/25/19 24 10/26/2023 CBC WITH DIFFE RENTI AL/PL ATELE T immature granulocytes 1 % not estab. Not Available [facility] ([facility]) [address] [facility], [place], [address], 10/26/2023 07:12:19 10/25/19 24 10/26/2023 CBC WITH DIFFE RENTI AL/PL ATELE T immature grans (abs) 0.1 x10e3 /uL 0.0-0. 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 METAB OLIC PANEL (14) glucose 107 mg/dL 70-99 above high normal Not Available [facility] ([facility]) [address] [place], [place], [address], 10/26/2023 12:12:47 10/25/19 24 10/26/2023 COMP. METAB OLIC PANEL (14) BUN 43 mg/dL 8-27 above high normal Not Available [facility] ([facility]) [address] [place], [address], 10/26/2023 12:12:47 10/25/19 24 10/26/2023 COMP. METAB OLIC PANEL (14) creatinine 1.05 mg/dL 0.76-1 .27 normal Not Available [facility] ([facility]) [address] [place], [address], 10/26/2023 12:12:47 10/25/19 24 10/26/2023 COMP. METAB OLIC PANEL (14) eGFR 79 mL/mi n/1.7 3 >59 normal Not Available [facility] ([facility]) [address] [facility] [place], [address], 10/26/2023 12:12:47 10/25/19 24 10/26/2023 COMP. METAB OLIC PANEL (14) BUN/creatini ne ratio 41 10-24 above high normal Not Available [facility] ([facility]) [address] [facility] [place], [address], 10/26/2023 12:12:47 10/25/19 24 10/26/2023 COMP. METAB OLIC PANEL (14) sodium 141 mmol/ L 134-14 4 normal Not Available [facility] ([facility]) [address] [facility] [place], [address], 10/26/2023 12:12:47 10/25/19 24 10/26/2023 COMP. METAB OLIC PANEL (14) potassium 5.0 mmol/ L 3.5-5. 2 normal Not Available [facility] ([facility]) [address] [facility] [place], [address], 10/26/2023 12:12:47 10/25/19 24 10/26/2023 COMP. METAB OLIC PANEL (14) chloride 105 mmol/ L 96-106 normal Not Available [facility] ([facility]) [address] [place], [address], 10/26/2023 12:12:47 10/25/19 24 10/26/2023 COMP. METAB OLIC PANEL (14) carbon dioxide, total 20 mmol/ L 20-29 normal Not Available [facility] ([facility]) [address] [facility], [place], [address], 10/26/2023 12:12:47 10/25/19 24 10/26/2023 COMP. METAB OLIC PANEL (14) calcium 10.1 mg/dL 8.6-10 .2 normal Not Available [facility] ([facility]) [address] [facility], [place], [address], 10/26/2023 12:12:47 10/25/19 24 10/26/2023 COMP. METAB OLIC PANEL (14) protein, total 7.3 g/dL 6.0-8. 5 normal Not Available [facility] ([facility]) [address] [facility], [place], [address], 10/26/2023 12:12:47 10/25/19 24 10/26/2023 COMP. METAB OLIC PANEL (14) albumin 4.6 g/dL 3.9-4. 9 normal Not Available [facility] ([facility]) [address] [facility], [place], [address], 10/26/2023 12:12:47 10/25/19 24 10/26/2023 COMP. METAB OLIC PANEL (14) globulin, total 2.7 g/dL 1.5-4. 5 Not Available [facility] ([facility]) [address] [facility], [place], [address], 10/26/2023 12:12:47 10/25/19 24 10/26/2023 COMP. METAB OLIC PANEL (14) bilirubin, total 0.4 mg/dL 0.0-1. 2 normal Not Available [facility] ([facility]) [address] [place], [address], 10/26/2023 12:12:47 10/25/19 24 10/26/2023 COMP. METAB OLIC PANEL (14) alkaline phosphatase 126 IU/L 44-121 above high normal Not Available [facility] ([facility]) [address] [place], [address], 10/26/2023 12:12:47 10/25/19 24 10/26/2023 COMP. METAB OLIC PANEL (14) AST (SGOT) 29 IU/L 0-40 normal Not Available [facility] ([facility]) [address] [place], [address], 10/26/2023 12:12:47 10/25/19 24 10/26/2023 COMP. METAB OLIC PANEL (14) ALT (SGPT) 19 IU/L 0-44 normal Not Available [facility] ([facility]) [address] [place], [address], 10/26/2023 12:12:47 10/25/19 24 10/26/2023 LIPID PANEL cholesterol, total 157 mg/dL 100-19 9 normal Not Available [facility] ([facility]) [address] [place], [address], 10/26/2023 10:36:58 10/25/19 24 10/26/2023 LIPID PANEL triglyceride s 202 mg/dL 0-149 above high normal Not Available [facility] ([facility]) [address] [place], [address], 10/26/2023 10:36:58 10/25/19 24 10/26/2023 LIPID PANEL HDL cholesterol 40 mg/dL >39 normal Not Available [facility]) [address] [place], [address], 10/26/2023 10:36:58 10/25/19 24 10/26/2023 LIPID PANEL VLDL cholesterol serena 34 mg/dL 5-40 Not Available [facility] ([facility]) [address] [place], [address], 10/26/2023 10:36:58 10/25/19 24 10/26/2023 LIPID PANEL LDL chol calc ([facility]) 83 mg/dL 0-99 Not Available [facility] ([facility]) [address] [place], [address], 10/26/2023 10:36:58 10/25/19 24 10/26/2023 LIPID PANEL LDL calc 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 normal Not Available [facility] ([facility]) [address] [place], [address], 10/26/2023 07:12:21 10/25/19 24 10/26/2023 ALBUM IN/CR EAT RATIO , TABATHAO M UR albumin, urine 13.3 ug/mL not estab. Not Available [facility] ([facility]) [address] [place], [address], 10/26/2023 07:12:21 10/25/19 24 10/26/2023 ALBUM IN/CR EAT RATIO , RANDO M UR alb/creat ratio 11 mg/g_ creat 0-29 Bhavna l: 0 - 29 Moder ately incre ased: 30 - 300 Sever rudy incre ased: >300 Not Available [facility] ([facility]) [address] [place], [address], 10/26/2023 07:12:21 10/25/19 24 10/26/2023 HEMOG LOBIN A1C hemoglobin A1C 5.5 % 4.8-5. 6 normal Predi abete s: 5.7 - 6.4 Diabe benja: >6.4 Glyce neftali contr ol for adult s with diabe benja: <7.0 Not Available [facility] ([facility]) [address] [facility], [place], [address], 10/26/2023 08:21:23 07/12/19 24 07/11/2023 XR, hip, unila teroh [place] [id number] [phone] TI [facility] REPORT Name: CATALINA YONGDANILO Jeane Room #: : 1960 Accoun t #: [id number] Bed #: Age: 63 Years Patien t Type: Outpat ient Order Date/T janessa: 2023 02:25: 00 PM Sex: M Access ion#: Exam Descri ption: Exam Reason : [id number] XR HIP UNILAT 2V+ TROCHA NTERIC BURSIT IS Dictat ed By: Lisbet Fry Physic mary: ZOHRA BRAXTON Attend [employer] Physic mary: ZOHRA BRAXTON Primar y Care Physic mary: BRITTANY GONZALEZ LY EXAMIN ATION: XR HIP UNILAT 2V+ CLINIC AL HISTOR Y: 63 years Male,T ROCHAN TERIC BURSIT IS COMPAR JUAN: There is no prior simila r study availa ble for correl ation. TECHNI QUE: Two radiog raphic views of the left hip FINDIN GS: No disloc ation or acute fractu re. Modera te joint space narrow ing and mild degene rative spurri ng. No erosiv e change s or gross bone destru ction. The soft tissue shadow s are unrema rkable . IMPRES KIT: * No acute bone pathol ogy. * Modera te degene rative arthro sis left hip. Electr onical ly signed by: Lisbet reyes MD 2023 04:09 PM CDT Workst ation: [id number] PAGE [address] [facility] [address] [place] [address], [address], 07/13/2023 08:11:39 12/13/19 24 12/12/2023 sp needl e guide d fluor o [address] [address] IMAGIN G REPORT Name: DANILO CHAVIRA Room #: : 1960 Accoun t #: [id number] Bed #: Age: 63 Years Patien t Type: Outpat ient Order Date/T janessa: 2023 11:15: 11 AM Sex: M Access ion#: Exam Descri ption: Exam Reason : [id number] SP NEEDLE GUIDED FLUOR osteoa rthrit is of hip Dictat ed By: Jeremias Hernandez Orderi ng Physic mary: FRANK SIMENTAL Attend ing Physic mary: FRANK SIMENTAL Primar y Care Physic mary: ZOHRA BRAXTON LEFT HIP THERAP EUTIC INJECT ION WITH FLUORO SCOPIC GUIDAN CE 024 HISTOR Y: Left hip pain. Reques t for therap eutic inject ion of steroi ds and local anesth etic into left hip joint. Fluoro scopy time: 40 second s. DAP 45. PROCED URE AND FINDIN GS: Proced ure and potent ial compli cation s were explai davin to and discus sed with rosario gudino who itz snider of propos ed proced ure and potent ial compli cation s. He indica esequiel his desire to procee d with inform ed consen t form signed . Steril e kyara r techni que employ ed with 2% chlorh exidin e soluti on utiliz ed for cutane ous cleans ing, steril e drapes placed to create steril e field, and with hats, masks, and steril e gloves utiliz ed. Site was marked by me. Timeou t held prior to beginn ing proced ure. Subcut aneous inject ion of Xyloca ine utiliz ed for local anesth esia with 21-gau ge spinal needle insert ed into left hip joint under fluoro scopic contro l with intra- articu lar positi on of needle tip docume nted with inject ion of small amount of nonion ic contra st. 4 mL of 1% lidoca ine and 1 mL of Depo-M edrol contai viraj 40 mg/mL were then inject ed into the left hip joint. Needle was then remove d with skin cleans ed and dressi ng applie d. Rosario gudino tolera esequiel proced ure well withou t PAGE 1 OF 2 TI [facility] REPORT Name: DANILO CHAVIRA Room #: : 1960 Accmayi t #: [id number] Bed #: Age: 63 Years Patirupinder t Type: Outpat ient Order Date/T janessa: 2023 11:15: 11 AM Sex: M immedi ate compli cation . Patirupinder t stated pain level of 7-8/10 prior to proced ure and postpr ocedur e pain level of 6-7/10 . IMPRES KIT: Succes sful therap eutic inject ion of steroi d and local anesth etic into left hip joint as noted above. Electr onical ly signed by: Jeremias Hernandez MD 2023 11:22 AM CDT RP Workst ation: [id number] PAGE 2 OF [address] [facility] [address] [place] [address], [address], 12/13/2023 12:59:25 Result Notes None recorded. Problems Name Problem SNOMED Code Status Onset Date Resolution Date Notes Provider Name and Address Organization Details Recorded Time Essential hypertensi on 54095089 Active 2022 Brittany Gonzalez NP [address] [place] [address], [address] , [facility] 3 11:39:05 Gastroesop hageal reflux disease 587653651 Active 2022 Brittany Gonzalez NP [address] [place] [address], [address] , [facility] 3 11:39:11 Mild intermitte nt asthma 345557406 Active 2022 Brittany Gonzalez NP [address] [place] [address], [address] , [facility] 3 11:39:31 Lesion of tongue 983786669 Active 2022 Beth Centeno NP [address], [place], [address] , [facility] 3 10:48:49 Impacted cerumen of bilateral ears 1988733133801 108 Active 2022 Beth Centeno NP [address], [place], [address] , [facility] 3 10:49:26 Asthmatic bronchitis 723321158 Active 2022 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 [address], [place], [address] , [facility] 3 10:43:30 Trochanter ic bursitis of left hip 9294539602390 03 Active 2023 GINNY Mcginnis [address], [place], [address] , [facility] 4 14:29:03 Osteoarthr itis of left hip joint 5868241193768 08 Active 2023 GINNY Mcginnis [address], [place], [address] , [facility] 4 10:34:31 Hip pain 65222965 Active 2023 GINNY Mcginnis [address], [place], [address] , [facility] 4 09:56:47 Pain of left hip joint 6697767287249 00 Active 2023 Tamiko gonzalez, [facility] 4 16:02:38 Type 2 diabetes mellitus without complicati on 384942332 Active 2023 GINNY Mcginnis [address], [place], [address] , [facility] 4 13:35:13 Chronic asthmatic bronchitis 644279220 Active 2021 Not Available [facility] 3 22:47:21 Morbid obesity 412408970 Active 2021 Not Available [facility] 3 22:47:21 Uncontroll ed type 2 diabetes mellitus 206294801 Active 2021 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 Procedures Surgical History Date Name Laterality Status Provider Name and Address Organization Details Recorded Time 05/28/19 colonoscopy completed GINNY Mcginnis [address] [place] [address], [address], [facility] 10/25/2022 09:26:48 03/07/19 04 Colonoscopy completed Not Available [facility] 03/14/19 22:48:33 osteoplasty of mandibular body completed Not Available [facility] 03/14/2022 22:48:33 grafting to skin completed Not Available [facility] 03/14/2022 22:48:33 Imaging Results Imaging Date Name Status LastModified by Organiz ation Details LastModified Time 07/11/2023 XR, hip, unilateral completed [email or web address] [place] [address] [place] [address], [address], 07/13/2023 08:11:39 12/12/2023 sp needle guided fluoro completed [email or web address] [facility] [address] [place] [address], [address], 12/13/2023 12:59:25 Procedure Notes None recorded. Medical Equipment None Reported. Allergies Allergen ID Allergen Name Allergen Category Reaction Reaction Severity Criticality Documentation Date Start Date Code Code System Note Provider Name and Address Organization Details Recorded Time 419115 Nexium medicatio n anaphylax is moderate Not available 03/14/2022 79950 9 RxNorm SORES ON BACK, LIVER AND KIDNE Y DAMAG E WITH TROUB LE BREAT YAYA Not Available [facility] 3 02:29:59 Medications Name Sig Start Date Stop Date Status Note LastModified by Organization Details LastModified Time losartan 50 mg tablet TAKE ONE TABLET BY MOUTH ONCE DAILY 08/01 completed Not Available Not Available Not Available doxycycli ne hyclate 100 mg capsule Take 1 capsule twice a day by oral route for 7 days. 12/01 completed Not Available Not Available Not Available albuterol sulfate 2.5 mg/3 mL (0.083 %) solution for nebulizat ion USE 1 VIAL IN NEBULIZE R TWICE DAILY active Not Available Not Available No t Available atorvasta tin 10 mg tablet TAKE 1 TABLET BY MOUTH EVERY DAY 02/16 completed Not Available Not Available Not Available azithromy janneth 250 mg tablet TAKE 2 TABLETS BY MOUTH DAY ONE THEN 1 TABLET EVERYDAY FOR THE NEXT FOUR DAYS 08/13 completed Not Available Not Available Not Available meloxicam 15 mg tablet TAKE 1 TABLET BY MOUTH ONCE DAILY active Not Available Not Available No t Available prednison e 20 mg tablet 60 mg daily x 1, 40mg daily x 3, 20mg daily x 3 then stop 12/01 completed Not Available Not Available Not Available amlodipin e 5 mg tablet TAKE 1 TABLET BY MOUTH ONCE DAILY active Not Available Not Available No t Available omeprazol e 40 mg capsule,d elayed release 2023 active Not Available Not Available Not Avai lable tramadol 50 mg tablet Take 1 tablet every 6 hours by oral route as needed, for moderate to severe pain. active Not Available Not Available No t Available Tessalon Perles 100 mg capsule Take 1 capsule 3 times a day by oral route for 10 days. 12/01 completed Not Available Not Available Not Available Kenalog 10 mg/mL suspensio n for injection Take 6 mL by injectio n route. 12/01 completed Not Available Not Available Not Available monteluka st 10 mg tablet TAKE 1 TABLET BY MOUTH EVERY DAY 2023 active Not Available Not Available Not Avai lable albuterol sulfate HFA 90 mcg/actua tion aerosol inhaler INHALE 2 PUFFS BY MOUTH EVERY 4 TO 6 HOURS active Not Available Not Available No t Available losartan 50 mg-hydroc hlorothia zide 12.5 mg tablet Take 1 tablet by mouth once daily 2023 active Not Available Not Available Not Avai lable fluticaso ne propionat e 50 mcg/actua tion nasal spray,juwan pension INHALE 2 SPRAYS IN EACH NOSTRIL ONCE DAILY 08/13 completed Not Available Not Available Not Available metformin ER 500 mg tablet,ex tended release 24 hr TAKE 2 TABLETS BY MOUTH TWICE DAILY active Not Available Not Available No t Available metformin ER 1,000 mg tablet,ex tended release 24 hr Take 1 tablet twice a day by oral route for 90 days. 10/13 completed Not Available Not Available Not Available BD Ultra-Fin e Short Pen Needle 31 gauge x 07/20 USE TO INJECT INSULIN ONCE DAILY active Not Available Not Available No t Available hydrochlo rothiazid e 12.5 mg tablet TAKE 1 TABLET BY MOUTH EVERY DAY 08/13 completed Not Available Not Available Not Available Lantus Solostar U-100 Insulin 100 unit/mL (3 mL) subcutane ous pen INJECT 10 UNITS SUBCUTAN EOUSLY ONCE DAILY AT BEDTIME active Not Available Not Available No t Available GaviLyte- G 236 gram-22.7 4 gram-6.74 gram-5.86 gram oral solution USE DIRECTED PER PHYSICIA N INSTRUCT ION 06/11 completed Not Available Not Available Not Available OneTouch Delica Lancets 33 gauge USE TO TEST BLOOD SUGAR ONCE DAILY active Not Available Not Available No t Available Advanced Glucose Meter USE DIRECTED TO TEST BLOOD SUAGR ONCE DAILY active Not Available Not Available No t Available Trulicity 1.5 mg/0.5 mL subcutane ous pen injector INJECT 1 SYRINGE SUBCUTAN EOUSLY ONCE A WEEK active Not Available Not Available No t Available naloxone 4 mg/actuat ion nasal spray active Not Available Not Available Not Available Trelegy Ellipta 100 mcg-62.5 mcg-25 mcg powder for inhalatio n INHALE 1 PUFF BY MOUTH ONCE DAILY 01/25 completed Not Available Not Available Not Available Ozempic 0.25 mg or 0.5 mg (2 mg/1.5 mL) subcutane ous pen injector Start: 0.25 mg SC qwk x4wk, then incr. to 0.5 mg SC qwk x 2 week 01/11 completed Not Available Not Available Not Available Wixela Inhub 250 mcg-50 mcg/dose powder for inhalatio n INL 1 PUFF PO BID 09/19 completed Not Available Not Available Not Available Flucelvax Quad (PF) 60 mcg (15 mcg x 4)/0.5 mL IM syringe PHARMACY ADMINIST SUHAS 04/12 completed Not Available Not Available Not Available Trelegy Ellipta 200 mcg-62.5 mcg-25 mcg powder for inhalatio n INHALE 1 PUFF ONCE DAILY active Not Available Not Available No t Available Semglee (insulin glargine- yfgn) Pen 100 unit/mL (3 mL) subcutane ous INJECT 10 UNITS SUBCUTAN EOUSLY AT BEDTIME 07/10 completed Pt had semglee left, will start lantus after Not Available Not Available Not Available Ozempic 2 mg/dose (8 mg/3 mL) subcutane ous pen injector 05/03 completed Not Available Not Available Not Available Vitals Date Recorded Body height Body mass index (BMI) Body weight Body temperature Heart rate Respiratory rate Oxygen saturation Oxygen saturation in Arterial blood by Pulse oximetry Systolic blood pressure Diastolic blood pressure Provider Name and Address Organization Details Last Updated DateTime 3 180.34 cm 43.1 kg/m2 471951. 04 g 97.2 [degF] 82 /min 18 /min 97 % 97 % 132 mm[Hg] 82 mm[Hg] [facility] 3 09:10:56 Date Recorded Body height Body mass index (BMI) Body weight Body temperature Heart rate Respiratory rate Oxygen saturation Oxygen saturation in Arterial blood by Pulse oximetry Provider Name and Address Organization Details Last Updated DateTime 4 180.34 cm 43.1 kg/m2 898940. 04 g 97.4 [degF] 88 /min 18 /min 97 % 97 % [facility] 4 09:12:42 Date Recorded Systolic blood pressure Diastolic blood pressure Provider Name and Address Organization Details Last Updated DateTime 04/12/2023 122 mm[Hg] 74 mm[Hg] FRAN Mcginnis-C [address] [place] [address], [address], [facility] 04/12/2023 09:37:00 Date Recorded Body height Body mass index (BMI) Body weight Heart rate Respiratory rate Oxygen saturation Oxygen saturation in Arterial blood by Pulse oximetry Body temperature Systolic blood pressure Diastolic blood pressure Provider Name and Address Organization Details Last Updated DateTime 4 180.34 cm 41.7 kg/m2 592806. 12 g 78 /min 18 /min 98 % 98 % 97.6 [degF] 124 mm[Hg] 80 mm[Hg] [facility] 4 14:14:32 Date Recorded Body height Body mass index (BMI) Body weight Body temperature Heart rate Respiratory rate Oxygen saturation Oxygen saturation in Arterial blood by Pulse oximetry Systolic blood pressure Diastolic blood pressure Provider Name and Address Organization Details Last Updated DateTime 4 180.34 cm 41.7 kg/m2 613911. 12 g 98 [degF] 98 /min 18 /min 97 % 97 % 146 mm[Hg] 88 mm[Hg] [facility] 4 15:21:15 Date Recorded Body height Body mass index (BMI) Body weight Body temperature Heart rate Oxygen saturation Oxygen saturation in Arterial blood by Pulse oximetry Respiratory rate Systolic blood pressure Diastolic blood pressure Provider Name and Address Organization Details Last Updated DateTime 4 180.34 cm 35.8 kg/m2 292178. 24 g 98.2 [degF] 97 /min 97 % 97 % 18 /min 144 mm[Hg] 88 mm[Hg] [facility] 4 12:08:25 Social History Question Answer Notes LastModified by Organizat ion Details LastModified Time Tobacco Smoking Status Former Smoker 10+ Not Available [facility] 03/14/2022 22:45:07 What Is Your Level Of Alcohol Consumption? Moderate [id number] Information not available 03/14/2022 What Is Your Level Of Caffeine Consumption? Moderate Information not available 05/17/2022 How Much Tobacco Do You Chew? None [id number] Information not available 03/14/2022 In The 14 Days Before Symptom Onset, Have You Had Close Contact With A Laboratory-confir med COVID-19 While That Case Was Ill? No [id number] Information not available 03/14/2022 In The 14 Days Before Symptom Onset, Have You Had Close Contact With A Person Who Is Under Investigation For COVID-19 While That Person Was Ill? No [id number] Information not available 03/14/2022 What Type Of Diet Are You Following? REGULAR [id number] Information not available 03/14/2022 Do You Or Have You Ever Used E-cigarettes Or Vape? Never Used Electronic Cigarettes [id number] Information not available 03/14/2022 Have There Been Any Changes To Your Family Or Social Situation? No Information no t available 07/19/2022 When Did You Quit Smoking? 11-15yearssinc elastcigarette Information not available 02/17/2024 Do You Use Insect Repellent Routinely? Yes Information not available 07/19/2022 Are You In An Abusive/frighteni ng Relationship? No [id number] Information not available 03/14/2022 Do You Feel Hopeless Or Helpless No [email or web address] Information not available 04/12/2022 Have You Had Thoughts Of Suicide? No [id number] Information not available 03/14/2022 Are You Having Any Suicidal Thoughts Now? No [id number] Information not available 03/14/2022 Have You Previously Attempted Suicide? No [id number] Information not available 03/14/2022 Do You Have A Plan To Hurt Yourself Or Others? No [email or web address] Information not available 04/12/2022 Has A Family Member Or Someone Close To You Committed Suicide Or Have You Been A Witness To Suicide? No [id number].[id number] Information not available 03/14/2022 Have You Fallen In The Last 3 Months? Yes [id number] Information not available 03/14/2022 If Yes, Did You Trip? Slipped On Ice In Feb. Information not available 05/17/2022 If Yes, Did You Pass Out? No Information not available 05/17/2022 If Yes, Do You Use A Walking Device? No Information not available 05/17/2022 If Yes, Were You Confused Or Disoriented? No Information not available 05/17/2022 If Yes, Were You Intoxicated? No Information not available 05/17/2022 Do You Have A Plan To Hurt Yourself Or Others? No [id number] Information not available 03/14/2022 Do You Feel Hopeless Or Helpless? No [id number] Information not available 03/14/2022 What Was The Date Of Your Most Recent Tobacco Screening? 02/17/2024 Information not available 02/17/2024 Have You Ever Been Counseled For Unhealthy Alcohol Use? No Information not available 07/19/2022 Do You Have Any Pets? No Information not available 07/19/2022 Do You Have Smoke And Carbon Monoxide Detectors In Your Home? Yes Information not available 07/19/2022 Are You Passively Exposed To Smoke? No Information no t available 07/19/2022 Do You Or Have You Ever Used Smokeless Tobacco? Never Used Smokeless Tobacco MIGRATION.[id number] Information not available 03/14/2022 Are There Any Smokers In Your House? No Information not available 07/19/2022 How Much Tobacco Do You Smoke? 1 PPD [id number].[id number] 6838 Information not available 03/14/2022 Do You Participate In Social Media? Yes Information not available 07/19/2022 Do You Feel Stressed (tense, Restless, Nervous, Or Anxious, Or Unable To Sleep At Night)? [id number] Information not available 07/19/2022 Do You Use Any Illicit Or Recreational Drugs? No Information not available 07/19/2022 Do You Use Sunscreen Routinely? Yes Information not available 07/19/2022 How Many Years Have You Smoked Tobacco? 0 [id number].[id number] Information not available 03/14/2022 Have You Recently Traveled Abroad? No [id number].754088 [id number] Information not available 03/14/2022 Do You Have Any Dietary Restrictions? No Information not available 07/19/2022 Do You Or Have You Ever Used Any Other Forms Of Tobacco Or Nicotine? No Information not available 07/19/2022 Sex: Male Functional Status Question Answer Note LastModified by Organizat ion Details LastModified Time Do you have difficulty walking or climbing stairs? Yes [id number] Information not available 03/14/2022 What is your exercise level? None [id number] Information not available 03/14/2022 Mental Status Question Answer Note LastModified by Organizat ion Details LastModified Time Do you have difficulty concentrating, remembering or making decisions? Yes SOB [id number] Information not available 03/14/2022 Family History Relationship Description Onset Age of this Age Resolved Age Notes LastModified by Organization Details LastModified Time Father Neoplasm of large intestine 67 liver, lung, brain [id number] Not available 03/14/2022 22:44:34 Mother Malignant neoplastic disease 88 some type of intest inal cancer , pt isn't sure. [id number] Not available 03/14/2022 22:44:34 Mother Cerebrovascu lar accident 88 [id number] Not available 03/14/2022 22:44:34 Notes:1 brother 2 sister Medical History Condition Response HYPERTENSION Y Immunizations Vaccine Type Date Status Note Provider Nam e and Address Organization Details Recorded Time Influenza, high-dose, trivalent, PF 4 completed GINNY Mcginnis [address] [place] [address], [phone], [facility] 12/30/2023 23:53:56 Pneumococcal conjugate PCV20, polysaccharide [id number] conjugate, adjuvant, PF 3 completed GINNY Mcginnis [address] [place] [address], [phone], [facility] 10/25/2022 13:55:47 zoster recombinant 3 completed GINNY Mcginnis [address] [place] [address], [phone], [facility] 10/25/2022 13:55:47 COVID-19, mRNA, LNP-S, PF, 100 mcg/0.5mL dose or 50 mcg/0.25mL dose 2 completed Eliza gonzalez, [facility] 04/11/2023 16:46:26 Influenza, split virus, quadrivalent, preservative 9 completed Not Available [facility] 03/14/2022 22:48:25 COVID-19, mRNA, LNP-S, PF, 100 mcg/0.5mL dose or 50 mcg/0.25mL dose 1 completed Not Available [facility] 03/14/2022 22:48:25 COVID-19, mRNA, LNP-S, PF, 100 mcg/0.5mL dose or 50 mcg/0.25mL dose 1 completed Not Available [facility] 03/14/2022 22:48:25 Tdap 3 completed 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 [address] [place] [address], [phone], [facility] 04/12/2022 11:30:31 zoster recombinant 3 completed 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 [address] [place] [address], [phone], [facility] 04/12/2022 11:30:31 Influenza, MDCK, quadrivalent, PF 0 completed Eliza Park null, [facility] 04/11/2023 16:46:26 Influenza, MDCK, quadrivalent, PF 2 completed Eliza Park null, [facility] 04/11/2023 16:46:26 Influenza, split virus, quadrivalent, PF 1 completed Eliza Park null, [facility] 04/11/2023 16:46:26 Influenza, split virus, quadrivalent, PF 3 completed GINNY Mcginnis [address] [place] [address], [phone], [facility] 01/25/2023 11:12:17 Past Encounters Encounter ID Performer Location Encounter Start Date Encounter Closed Date Diagnosis/Indication Diagnosis SNOMED-CT Code Diagnosis ICD10 Code [id number] [facility] [address] 11/15/2018 00:00:00 11/15/2018 20:17:31 [id number] [facility]_[address] [address] 11/17/2018 00:00:00 11/17/2018 10:22:53 [id number] [facility] [address] [place] [address], [place] [address] 12/01/2018 00:00:00 12/01/2018 11:40:38 [id number] [facility] [address] [place] [address], [place] [address] 08/02/2019 00:00:00 08/03/2019 08:19:23 [id number] [facility] [address] [place] [address], [place] [address] 02/22/2020 00:00:00 02/22/2020 16:59:41 [id number] [facility] [address] [place] [address], [place] [address] 06/19/2020 00:00:00 06/19/2020 17:13:24 [id number] [facility] [address] [place] [address], [place] [address] 5 07/15/2020 00:00:00 07/15/2020 21:18:33 [id number] [facility] [address] [place] [address], [place] [address] 10/10/2020 00:00:00 10/10/2020 16:29:06 [id number] [facility] [address] [place] [address], [place] [address] 5 06/15/2021 00:00:00 06/15/2021 10:40:00 [id number] [facility] [address] [place] [address], [place] [address] 5 06/26/2021 00:00:00 06/26/2021 11:24:41 [id number] [facility] [address] [place] [address], [place] [address] 10/12/2021 00:00:00 10/12/2021 16:52:04 [id number] [facility] [address] [place] [address] 01/11/2022 00:00:00 01/11/2022 09:37:59 [id number] Brittany Gonzalez NP [facility] [address] [place] [address] 5 04/12/2022 09:17:12 04/12/2022 10:01:27 Administration of diphtheria, pertussis, and tetanus vaccine 879431827 Z23 Active or passive immunization 339035725 Z23 Gastroesop hageal reflux disease 481811415 K21.9 Type 2 kyara betes mellitus without complication 231707645 E11.9 Essential hypertension 05974881 I10 Morbid obesity 278816502 E66.01 Screening for malignant neoplasm of colon 092739566 Z12.11 Mild inter mittent asthma 102545581 J45.20 Multiple n odules of lung 884892933 R91.8 [id number] Efe Bonilla MD [address] [address] 05/14/2022 10:38:28 05/14/2022 11:37:57 [id number] Beth Centeno NP [address] [address] 05/17/2022 10:01:32 05/17/2022 11:07:49 Lesion of tongue 051396599 K14.9 Impacted c erumen of bilateral ears 8354284687 662684 H61.23 [id number] Brittany Gonzalez NP [address] [address] 07/19/2022 10:11:53 07/19/2022 10:59:54 Uncontrolled type 2 diabetes mellitus 451772388 E11.65 Hepatitis C screening 41 6993452 Z11.59 Asthmatic bronchitis 405 696654 J45.909 Hyperlipidemia 81805525 E78.5 Essential hypertension 40785330 I10 Screening for malignant neoplasm of prostate 698012977 Z12.5 Mild inter mittent asthma 117382523 J45.20 [id number] GINNY Mcginnis [address] [address] 10/25/2022 08:47:05 10/25/2022 14:25:33 Hyperlipidemia 42038464 E78.5 Uncontroll ed type 2 diabetes mellitus 878133256 E11.65 Adult [facility] th examination 521099449 Z00.00 Mild inter mittent asthma 219652018 J45.20 Active or passive immunization 869190200 Z23 [id number] GINNY Mcginnis [address] [address] 01/25/2023 08:57:23 01/25/2023 09:35:31 Administration of influenza vaccine 25761382 Z23 Mild inter mittent asthma 292839520 J45.20 Hyperlipidemia 33093352 E78.5 Uncontroll ed type 2 diabetes mellitus 397864958 E11.65 Essential hypertension 69861767 I10 [id number] GINNY Mcginnis [address] [address] 04/12/2023 09:00:52 04/12/2023 12:12:49 Mild intermittent asthma 888410947 J45.20 Uncontroll ed type 2 diabetes mellitus 456364352 E11.65 Hyperlipidemia 78679052 E78.2 Essential hypertension 51694454 I10 Gastroesop hageal reflux disease 163102388 K21.[id number] [address] 07/11/2023 13:40:32 07/11/2023 15:48:23 Trochanteric bursitis of left hip 1750089900 75244 M70.62 Uncontroll ed type 2 diabetes mellitus 306271254 E11.65 Hyperlipidemia 21895481 E78.2 Essential hypertension 92675175 I10 Mild inter mittent asthma 749068376 J45.20 Gastroesop hageal reflux disease 807542453 K21.9 [id number] GINNY Mcginnis [address] [address] 12/30/2023 15:10:49 01/02/2024 03:52:17 Osteoarthritis of left hip joint 7052618986 58999 M16.12 Mild inter mittent asthma 259884786 J45.20 Administra tion of influenza vaccine 01990510 Z23 [id number] GINNY Mcginnis [address] [address] 02/17/2024 11:32:01 02/20/2024 01:50:39 Osteoarthritis of left hip joint 5969413871 72003 M16.12 Type 2 kyara betes mellitus without complication 969290989 E11.9 Health Concerns Section Related Observation LastModified by Organization Detai ls LastModified Time None Recorded Concern Status LastModified by Organization Details LastModified Time None Recorded Advance Directives Directive None Recorded Payers Encounter Date Sequence Insurance Name Policy Number Policy Sommres Covered Member ID Sommers Member ID Guarantor Name 01/25/2023 1 [place] [id number] Danilo Reagan [id number] Danilo Ching [place] 04/12/2023 1 [employer] (HMO) [id number] Danilo Ching [place] [id number] Danilo Ching [place] 07/11/2023 1 [employer] (HMO) [id number] Danilo Ching [place] [id number] Danilo Ching [place] 12/30/2023 1 [employer] (HMO) [id number] Danilo Ching [place] [id number] Danilo Ching [place] 02/17/2024 1 [employer] (HMO) [id number] Danilo Ching [place] [id number] Danilo Reagan Notes Date Note Type Note Provider Name and Address Organization Details Recorded Time 01/25/2023 text/html 62 year old male presents for 3 month f/u. He has asthma, type 2 diabetes, HTN and hyperlipidemia. He did establish with a new revenue enforcement agent in November but does not have a f/u appt. He does feel like the trelegy has helped but he is having increased episodes of SOB. He does use his rescue inhaler daily. He does take his meds as ordered. Labs are up to date. He does need a flu shot. GINNY Mcginnis [address] [place] [address], [phone], [facility] 01/25/2023 11:16:36 04/12/2023 text/html 62 year old male presents for 3 month f/u. He has type 2 diabetes, HTN, hyperlipidemia and asthma. Recent labs did reveal a Hgb A1c of 5.8. His lipids are not at goal. He is not sure if he is taking the atorvastatin or not. He has no complaints. He denies any s/s of hypoglycemia. GINNY Mcginnis [address] [place], [address], [facility] 04/12/2023 11:24:45 07/11/2023 text/html 63 year old male presents for 3 month f/u. He has type 2 diabetes, HTN, hyperlipidemia and asthma. Recent labs did reveal a Hgb A1c of 5.8. He had been on ozempic which is insurance would no longer cover. We just recently obtained [place] approval for trulicity but it is not in stock at his pharmacy. He is also on metformin and lantus. He needs to make f/u appt with pulmonology. He does take his meds as ordered. He is up to date on labs. He is c/o left lateral hip pain. He reports an injury several years ago to his hip. He had been having intermittent hip pain that would resolve in 1-2 days spontaneously. He has had consistent pain for the past month. He denies any recent trauma or injury. GINNY Mcginnis [address] [place] [address], [phone], [facility] 07/11/2023 16:57:32 12/30/2023 text/html 63 year old male presents for evaluation of left hip pain. He has hip OA and has been referred to pain management by Ortho. He has appt with them next week. He has been taking tramadol for the pain with mild relief. The pain is moderate to severe at times. He needs to find an Ortho in network with his insurance as he needs hip replacement. He does need a flu shot. GINNY Mcginnis [address] [place] [address], [phone], [facility] 12/30/2023 23:56:29 02/17/2024 text/html 63 year old male presents for general medical clearance for left hip replacement scheduled for 02/26 at [facility] with Dr. Clark. He is scheduled for pre-op testing next week. He has no complaints except for his ongoing hip pain. He does have type 2 diabetes and is on trulicity. GINNY Mcginins [address] [place] [address], [phone], [facility] 02/17/2024 13:36:56
--- OUTSIDE RECORDS SUMMARY | 2024-03-05 02:21 | XMS_ITS ---
Author Organization Unknown Address [address] [place] [address] [phone] Phone Care Team Providers Care E Commerce Analyst Name Role Phone KAMILLE BOOGIE Attending Unavailable JESSICA SIM ANP-Betsy Primary Unavailable Immunization Immunization Date Status Additional Notes Code Code System Pneumococcal conjugate PCV20 , polysaccharide [id number] conjugate, adjuvant, PF 10/25/2022 Completed 216 CVX [...] Code Syst em Smoking History Former smoker 2986112 SNOMED CT Sex Male Medications Medication Start Date End Date Route Frequency Dose Code Code System Medication Instructions Home Meds amLODIPine Besylate 5MG Oral Tablet 12/29/2023 Unknown By Mouth Daily 1 TABLET 984735 RxNorm 1 TABLET By Mouth Daily metFORMIN HCl 500MG Oral Tablet 12/29/2023 Unknown By Mouth Four times a day 1 TABLET 070231 RxNorm 1 TABLET By Mouth Four times a day Meloxicam 15MG Oral Tablet 12/29/2023 Unknown By Mouth Daily 1 TABLET 536280 RxNorm 1 TABLET By Mouth Daily Trelegy Ellipta 200/62.5/25MC G/INH Inhalation Powder 12/29/2023 Unknown Inhale Daily 1 PUFF(S) 8335680 RxNorm 1 PUFF(S) Inhale Daily As needed Albuterol Sulfate HFA 0.09MG/1Actua tion Inhalation Suspension 12/29/2023 Unknown Inhale Every 4 hours 2 Puff 1500349 RxNorm 2 Puff Inhale Every 4 hours As needed Lantus 100U/1ML Subcutaneous Solution 12/29/2023 Unknown Subcutaneous 800626 RxNorm UNIT Subcutaneous Losartan Potassium-hyd roCHLOROthiaz annalee 50MG-12.5MG Oral Tablet 12/29/2023 Unknown By Mouth Daily 1 TABLET 774322 RxNorm 1 TABLET By Mouth Daily Montelukast Sodium 10MG Oral Tablet 12/29/2023 Unknown By Mouth Daily 1 TABLET 540888 RxNorm 1 TABLET By Mouth Daily At bedtime Trulicity 1.5MG/0.5ML Subcutaneous Solution 12/29/2023 Unknown Subcutaneous Once a week 1 UNIT 1732745 RxNorm 1 UNIT Subcutaneous Once a week traMADol HCl 50MG Oral Tablet 02/13/2024 02/13/20 24 By Mouth Twice a day 1 TABLET 247335 RxNorm 1 TABLET By Mouth Twice a day traMADol HCl 50MG Oral Tablet 02/13/2024 Unknown By Mouth Twice a day 1 TABLET 117008 RxNorm 1 TABLET By Mouth Twice a day Narcan 4MG/0.1ML Nasal Reading 02/13/2024 Unknown Nasal As needed 1 Sprays 5598318 RxNorm 1 Sprays Nasal As needed Assessment [...] Code System TYPE 2 DIABETES 10/13/2021 active 62956572 SNO MED-CT HYPERLIPIDEMIA 06/12/2021 active 32367544 SNOM ED-CT MORBID OBESITY 06/12/2021 active 000632875 SNOM ED-CT ESSENTIAL HYPERTENSION 04/12/2022 active 451047 00 SNOMED-CT CHRONIC ASTHMATIC BRONCHITIS 06/12/2021 active 841317518 SNOMED-CT MILD INTERMITTENT ASTHMA 04/12/2022 active 4276 49863 SNOMED-CT MULTIPLE LUNG NODULES 06/12/2021 active 7760843 1 SNOMED-CT LESION OF TONGUE 05/17/2022 active 130503028 SN OMED-CT GASTROESOPHAGEAL REFLUX 04/12/2022 active 89552 5009 SNOMED-CT TROCHANTERIC BURSITIS, LEFT HIP 07/11/2023 active 880913594826803 SNOMED-CT Allergies and Adverse Reactions Allergy Substance Reaction Severity Start Date Concern Status Code Code System NEXIUM ANAPHYLAXIS (SNOMED-CT: null) Severe Active 852246 RxNorm Plan of Treatment No Data Found Personal Care Team Section Performer Name Performer Role Active Date Inactive Da bernadette
--- OUTSIDE RECORDS SUMMARY | 2024-03-05 02:21 | XMS_ITS ---
Author Organization Unknown Address [address] [place] [address] [phone] Phone Care Team Providers Care Bi Solutions Architect Name Role Phone KAMILLE BOOGIE Attending Unavailable JESSICA SIM ANP-C Primary Unavailable Surinder Collins Referring Provider Immunization Immunization Date Status Additional Notes Code Code System Pneumococcal conjugate PCV20 , polysaccharide WSF352 conjugate, adjuvant, PF 10/25/2022 Completed 216 CVX [...] Code Syst em Smoking History Former smoker 2259009 SNOMED CT Sex Male Vital Signs Vital Sign Value Unit [place] Value [place] Unit Date/Time Recent/Initial? Code Code System Body Mass Index 37.69 kg/m2 01/02/2024 08:37 Initial 54094 -5 LOINC Systolic Blood Pressure 134 mm[Hg] 01/02/2024 08:37 Initial 8480- 6 LOINC Diastolic Blood Pressure 78 mm[Hg] 01/02/2024 08:37 Initial 8462- 4 LOINC Body Surface Area 2.48 m2 01/02/2024 08:37 Initial 3140- 1 LOINC Height 180.340 0 cm 71.00 in 01/02/2024 08:37 Initial 8302- 2 LOINC O2 Saturation 96 % 2023 08:37 Initial 39990 -5 LOINC Pulse 76.0 /min 01/02/2024 08:37 Initial 8867- 4 LOINC Respiration 20 /min 01/02/20 08:37 Initial 9279- 1 LOINC Temperature 36.7 Ara 98.0 F 01/02/20 08:37 Initial 8310- 5 LOINC Weight 122.58 kg 270.25 lbs 01/02/2024 08:37 Initial 32581 -7 [facility] Medications Medication Start Date End Date Route Frequency Dose Code Code System Medication Instructions Home Meds amLODIPine Besylate 5MG Oral Tablet 12/29/2023 Unknown By Mouth Daily 1 TABLET 317923 RxNorm 1 TABLET By Mouth Daily metFORMIN HCl 500MG Oral Tablet 12/29/2023 Unknown By Mouth Four times a day 1 TABLET 256730 RxNorm 1 TABLET By Mouth Four times a day Meloxicam 15MG Oral Tablet 12/29/2023 Unknown By Mouth Daily 1 TABLET 458914 RxNorm 1 TABLET By Mouth Daily Trelegy Ellipta 200/62.5/25MC G/INH Inhalation Powder 12/29/2023 Unknown Inhale Daily 1 PUFF(S) 4091771 RxNorm 1 PUFF(S) Inhale Daily As needed Albuterol Sulfate HFA 0.09MG/1Actua tion Inhalation Suspension 12/29/2023 Unknown Inhale Every 4 hours 2 Puff 6038547 RxNorm 2 Puff Inhale Every 4 hours As needed Lantus 100U/1ML Subcutaneous Solution 12/29/2023 Unknown Subcutaneous 538433 RxNorm UNIT Subcutaneous Losartan Potassium-hyd roCHLOROthiaz annalee 50MG-12.5MG Oral Tablet 12/29/2023 Unknown By Mouth Daily 1 TABLET 891931 RxNorm 1 TABLET By Mouth Daily Montelukast Sodium 10MG Oral Tablet 12/29/2023 Unknown By Mouth Daily 1 TABLET 089019 RxNorm 1 TABLET By Mouth Daily At bedtime Trulicity 1.5MG/0.5ML Subcutaneous Solution 12/29/2023 Unknown Subcutaneous Once a week 1 UNIT 5225011 RxNorm 1 UNIT Subcutaneous Once a week traMADol HCl 50MG Oral Tablet 02/13/2024 02/13/20 24 By Mouth Twice a day 1 TABLET 825145 RxNorm 1 TABLET By Mouth Twice a day traMADol HCl 50MG Oral Tablet 02/13/2024 Unknown By Mouth Twice a day 1 TABLET 168478 RxNorm 1 TABLET By Mouth Twice a day Narcan 4MG/0.1ML Nasal [place] 02/13/2024 Unknown Nasal As needed 1 Sprays 0217046 RxNorm 1 Sprays Nasal As needed Assessment [...] physician. Reason For Referral No Data Found Procedures Procedure Name Date Status Code Code Syste m Colonoscopy 05/27/2022 completed 48235151 SNOMEDCT Graft of skin completed 266111692 SNOMEDCT Mandibular body osteoplasty completed 39795387 SNOMEDCT Problems Problem Start Date Resolved Date Status Code Code System TYPE 2 DIABETES 10/13/2021 active 99274256 SNO MED-CT HYPERLIPIDEMIA 06/12/2021 active 82552168 SNOM ED-CT MORBID OBESITY 06/12/2021 active 811988086 SNOM ED-CT ESSENTIAL HYPERTENSION 04/12/2022 active 773585 00 SNOMED-CT CHRONIC ASTHMATIC BRONCHITIS 06/12/2021 active 258881089 SNOMED-CT MILD INTERMITTENT ASTHMA 04/12/2022 active 4276 07492 SNOMED-CT MULTIPLE LUNG NODULES 06/12/2021 active 3651808 1 SNOMED-CT LESION OF TONGUE 05/17/2022 active 946815007 SN OMED-CT GASTROESOPHAGEAL REFLUX 04/12/2022 active 82613 5009 SNOMED-CT TROCHANTERIC BURSITIS, LEFT HIP 07/11/2023 active 867207140107631 SNOMED-CT Allergies and Adverse Reactions Allergy Substance Reaction Severity Start Date Concern Status Code Code System NEXIUM ANAPHYLAXIS (SNOMED-CT: null) Severe Active 646856 RxNorm Plan of Treatment WILMAN AGUERO MD. Encounters Encounter Diagnosis Start Date Code Code Sys tem Degeneration of lumbar intervertebral disc 01/02/2024 44489428 SNOMED-CT Personal Care Team Section Performer Name Performer Role Active Date Inactive Da te
--- OUTSIDE RECORDS SUMMARY | 2024-03-05 02:21 | XMS_ITS | Continuity of Care Document ---
Author Organization [facility] Address [address] [place] [address] Care Team Providers Care Utility Systems Repairer Operator Name Role Phone CHIQUIS LOPEZ Primary Care Provider [phone] Assessment No assessment recorded. Plan of Treatment Reminders Order Date Submit Date Provider Last Modified By Organization Details Last Modified Time Details Appointments None record ed. Lab None record ed. Referral None record ed. Procedures None record ed. Surgeries None record ed. Imaging None record ed. Medication Orders None record ed. Patient TargetsNo targets recorded. Patient InstructionsNo instructions recorded. Reason for Referral None Reported. Problems Name Problem SNOMED Code Status Onset Date Resolution Date Notes Provider Name and Address Organization Details Recorded Time Essential hypertensi on 97161562 Active 2022 Brittany Bird NP [address] [place] [address], [address] , [facility] 3 11:39:05 Gastroesop hageal reflux disease 044522727 Active 2022 Brittany Bird NP [address] [place] [address], [address] , [facility] 3 11:39:11 Mild intermitte nt asthma 276008097 Active 2022 Brittany Bird NP [address] [place] [address], [address] , [facility] 3 11:39:31 Lesion of tongue 349103947 Active 2022 Beth Centeno NP [address] [place], [address] , [facility] 3 10:48:49 Impacted cerumen of bilateral ears 9350792050398 108 Active 2022 Beth Centeno, CODEY [address], [place], [address] , [facility] 3 10:49:26 Asthmatic bronchitis 972201722 Active 2022 Brittany Bird NP [address], [place], [address] , [facility] 3 10:43:30 Trochanter ic bursitis of left hip 6469986204443 03 Active 2023 GINNY Mcginnis [address], [place], [address] , [facility] 4 14:29:03 Osteoarthr itis of left hip joint 4663644199243 08 Active 2023 GINNY Mcginnis [address], [place], [address] , [facility] 4 10:34:31 Hip pain 24822749 Active 2023 GINNY Mcginnis [address], [place], [address] , [facility] 4 09:56:47 Pain of left hip joint 4015227985076 00 Active 2023 Tamiko gonzalez, [facility] 4 16:02:38 Type 2 diabetes mellitus without complicati on 353559273 Active 2023 GINNY Mcginnis [address], [place], [address] , [facility] 4 13:35:13 Chronic asthmatic bronchitis 120981234 Active 2021 Not Available [facility] 3 22:47:21 Morbid obesity 066762922 Active 2021 Not Available [facility] 3 22:47:21 Uncontroll ed type 2 diabetes mellitus 720996981 Active 2021 Brittany Bird NP [address], [place], [address] , [facility] 3 11:39:22 Multiple nodules of lung 270038718 Active 2021 Not Available [facility] 3 22:47:21 Hyperlipid emia 28040961 Active 2021 Not Available [facility] 3 22:47:21 Problem Notes None recorded. Procedures Surgical History Date Name Laterality Status Provider Name and Address Organization Details Recorded Time 05/28/19 23 colonoscopy completed GINNY Mcginnis [address] [place] [address], [address], [facility] 10/25/2022 09:26:48 03/07/19 Colonoscopy completed Not Available [facility] 03/14/19 22:48:33 osteoplasty of mandibular body completed Not Available [facility] 03/14/2022 22:48:33 grafting to skin completed Not Available [facility] 03/14/2022 22:48:33 Imaging Results None recorded. Procedure Notes None recorded. Medical Equipment None Reported. Allergies Allergen ID Allergen Name Allergen Category Reaction Reaction Severity Criticality Documentation Date Start Date Code Code System Note Provider Name and Address Organization Details Recorded Time 214968 Nexium medicatio n anaphylax is moderate Not available 03/14/2022 07003 9 RxNorm SORES ON BACK, LIVER AND KIDNE Y DAMAG E WITH TROUB LE BREAT YAYA Not Available [facility] 3 02:29:59 Medications Name Sig Start Date [...] e Short Pen Needle 31 gauge x /16 USE TO INJECT INSULIN ONCE DAILY active [...] x 4)/0.5 mL IM syringe PHARMACY ADMINIST ERED 04/12 completed Not Available Not Available Not [...] Updated DateTime 4 180.34 cm 35.8 kg/m2 974653. 24 g 98.2 [degF] 97 /min 97 % 97 % 18 /min 144 mm[Hg] 88 mm[Hg] Eliza Diazmindi [facility] 4 12:08:25 Social History Question Answer Notes LastModified by Organizat ion Details LastModified Time Tobacco Smoking Status Former Smoker 10+ Not Available [facility] 03/14/2022 22:45:07 What Is Your Level Of Alcohol Consumption? Moderate MIGRATION.[id number] 3548 Information not available 03/14/2022 What Is Your Level Of Caffeine Consumption? Moderate Information not available 05/17/2022 How Much Tobacco Do You Chew? None MIGRATION.624002 8199 Information not available 03/14/2022 In The 14 Days Before Symptom Onset, Have You Had Close Contact With A Laboratory-confir med COVID-19 While That Case Was Ill? No MIGRATION.144339 3411 Information not available 03/14/2022 In The 14 Days Before Symptom Onset, Have You Had Close Contact With A Person Who Is Under Investigation For COVID-19 While That Person Was Ill? No MIGRATION.158608 9676 Information not available 03/14/2022 What Type Of Diet Are You Following? REGULAR MIGRATION.015704 0340 Information not available 03/14/2022 Do You Or Have You Ever Used E-cigarettes Or Vape? Never Used Electronic Cigarettes MIGRATION.275175 8176 Information not available 03/14/2022 Have There Been Any Changes To Your Family Or Social Situation? No Information no t available 07/19/2022 When Did You Quit Smoking? 11-15yearssinc elastcigarette Information not available 02/17/2024 Do You Use Insect Repellent Routinely? Yes Information not available 07/19/2022 Are You In An Abusive/frighteni ng Relationship? No MIGRATION.422787 2078 Information not available 03/14/2022 Do You Feel Hopeless Or Helpless No Information not available 04/12/2022 Have You Had Thoughts Of Suicide? No MIGRATION.215607 7844 Information not available 03/14/2022 Are You Having Any Suicidal Thoughts Now? No MIGRATION.276221 6615 Information not available 03/14/2022 Have You Previously Attempted Suicide? No MIGRATION.104034 1156 Information not available 03/14/2022 Do You Have A Plan To Hurt Yourself Or Others? No [email or web address] Information not available 04/12/2022 Has A Family Member Or Someone Close To You Committed Suicide Or Have You Been A Witness To Suicide? No MIGRATION.752820 0610 Information not available 03/14/2022 Have You Fallen In The Last 3 Months? Yes MIGRATION.134738 8580 Information not available 03/14/2022 If Yes, Did [...] Plan To Hurt Yourself Or Others? No MIGRATION.696562 5798 Information not available 03/14/2022 Do You Feel Hopeless Or Helpless? No MIGRATION.346553 1076 Information not available 03/14/2022 What Was The [...] Used Smokeless Tobacco? Never Used Smokeless Tobacco MIGRATION.611705 4691 Information not available 03/14/2022 Are There Any Smokers In Your House? No Information not available 07/19/2022 How Much Tobacco Do You Smoke? 1 PPD MIGRATION.431193 7919 Information not available 03/14/2022 Do You Participate In Social Media? Yes Information not available 07/19/2022 Do You Feel Stressed (tense, Restless, Nervous, Or Anxious, Or Unable To Sleep At Night)? SW0915-2 Information not available 07/19/2022 Do You Use Any Illicit Or Recreational Drugs? No Information not available 07/19/2022 Do You Use Sunscreen Routinely? Yes Information not available 07/19/2022 How Many Years Have You Smoked Tobacco? 0 MIGRATION.257612 8306 Information not available 03/14/2022 Have You Recently Traveled Abroad? No MIGRATION.794769 0388 Information not available 03/14/2022 Do You Have Any Dietary Restrictions? No Information not available 07/19/2022 Do You Or Have You Ever Used Any Other Forms Of Tobacco Or Nicotine? No Information not available 07/19/2022 Sex: Male Functional Status Question Answer Note LastModified by Organizat ion Details LastModified Time Do you have difficulty walking or climbing stairs? Yes MIGRATION.577743540 1 Information not available 03/14/2022 What is your exercise level? None MIGRATION.596092618 1 Information not available 03/14/2022 Mental Status Question Answer Note LastModified by Organizat ion Details LastModified Time Do you have difficulty concentrating, remembering or making decisions? Yes SOB MIGRATION.469908967 1 Information not available 03/14/2022 Family History Relationship Description Onset Age of this Age Resolved Age Notes LastModified by Organization Details LastModified Time Father Neoplasm of large intestine 67 liver, lung, brain MIGRATION.602 [id number] Not available 03/14/2022 22:44:34 Mother Malignant neoplastic disease 88 some type of intest inal cancer , pt isn't sure. MIGRATION.669 [id number] Not available 03/14/2022 22:44:34 Mother Cerebrovascu lar accident 88 MIGRATION.043 [id number] Not available 03/14/2022 22:44:34 Notes:1 brother 2 sister Medical History Condition Response HYPERTENSION Y Immunizations Vaccine Type Date Status Note Provider Nam e and Address Organization Details Recorded Time Influenza, high-dose, trivalent, PF 4 completed GINNY Mcginnis [address] [place] [address], [address], [facility] 12/30/2023 23:53:56 Pneumococcal conjugate PCV20, polysaccharide [id number] conjugate, adjuvant, PF 3 completed GINNY Mcginnis [address] [place] [address], [address], [facility] 10/25/2022 13:55:47 zoster recombinant 3 completed GINNY Mcginnis [address] [place] [address], [address], [facility] 10/25/2022 13:55:47 COVID-19, mRNA, LNP-S, PF, 100 mcg/0.5mL dose or 50 mcg/0.25mL dose 2 [facility] 16:46:26 Influenza, split virus, quadrivalent, preservative 9 completed Not Available [facility] 03/14/2022 22:48:25 COVID-19, mRNA, LNP-S, PF, 100 mcg/0.5mL dose or 50 mcg/0.25mL dose 1 completed Not Available [facility] 03/14/2022 22:48:25 COVID-19, mRNA, LNP-S, PF, 100 mcg/0.5mL dose or 50 mcg/0.25mL dose 1 completed Not Available [facility] 03/14/2022 22:48:25 Tdap 3 completed Brittany Bird NP [address] [place] [address], [address], [facility] 04/12/2022 11:30:31 zoster recombinant 3 completed Brittany Bird NP [address] [place] [address], [address], [facility] 04/12/2022 11:30:31 Influenza, MDCK, quadrivalent, PF 0 completed Eliza Park null, [facility] 04/11/2023 16:46:26 Influenza, MDCK, quadrivalent, PF 2 completed Eliza Xavier null, [facility] 04/11/2023 16:46:26 Influenza, split virus, quadrivalent, PF 1 completed Eliza Xavier null, [facility] 04/11/2023 16:46:26 Influenza, split virus, quadrivalent, PF 3 completed GINNY Mcginnis [address] [place] [address], [address], [facility] 01/25/2023 11:12:17 Past Encounters Encounter ID Performer Location Encounter Start Date Encounter Closed Date Diagnosis/Indication Diagnosis SNOMED-CT Code Diagnosis ICD10 Code [id number] GINNY Mcginnis DIR[address] [address] 02/17/2024 11:32:01 02/20/2024 01:50:39 Osteoarthritis of left hip joint 2445789725 03672 M16.12 Type 2 kyara betes mellitus without complication 040776133 E11.9 Health Concerns Section Related Observation LastModified by Organization Detai ls LastModified Time None Recorded Concern Status LastModified by Organization Details LastModified Time None Recorded Payers Encounter Date Sequence Insurance Name Policy Number Policy Sommers Covered Member ID Sommers Member ID Guarantor Name 02/17/2024 1 [employer] (O) [id number] Danilo Reagan [id number] Danilo Reagan Notes Date Note Type Note Provider Name and Address Organization Details Recorded Time 02/17/2024 text/html 63 year old male presents for general medical clearance for left hip replacement scheduled for 02/26 at [facility] with Dr. Clark. He is scheduled for pre-op testing next week. He has no complaints except for his ongoing hip pain. He does have type 2 diabetes and is on trulicity. GINNY Mcginnis [address] [place] [address], [address], [facility] 02/17/2024 13:36:56
--- OUTSIDE RECORDS SUMMARY | 2024-03-05 02:21 | XMS_ITS | Data Portability ---
Author Organization [place] [facility], Main Office Address [address] [place] [address] Care Team Providers Care Chipper Name Role Phone CHIQUIS LOPEZ Primary Care Provider CHIQUIS LOPEZ Referring Provider Assessment Encounter Date Assessment Date Assessment LastModified by Organization Details LastModified Time 08/15/2023 08/15/2023 63-year-old male presents for evaluation of his left hip. Has a history of hip arthritis that has been bothering him for a long time, getting progressively worse since June. He reports started in winter of 2000 when he slipped and fell some ice. Also a couple of years ago he developed some sort of lung problems which caused him to gain a significant amount of weight. He has lost most of that, but is still working on his weight now. He currently rates his pain as 6/10, which gets worse with activity. 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 He has been taking ibuprofen, Aleve, Tylenol, and using icy hot and Biofreeze. He has not had any other treatments. He has a history of diabetes, A1c of less than 6 Review of systems per patient questionnaire Physical exam: He has slightly antalgic gait. He has proximally 15?? of internal rotation, 30?? of external rotation, with discomfort. 5- out of 5 hip flexion strength. No tenderness palpation of the lateral hip, good hip abduction strength. X-rays were reviewed, demonstrating degenerative changes of the hip, with joint space narrowing sclerosis For his hip arthritis, we will continue conservative management. We will try a course of physical therapy and meloxicam. We discussed the next step would be to consider cortisone injection under fluoroscopy. We will see him back as needed in approximately 8 weeks, he may call with any questions or concerns prior to then. He is in agreement with the plan Not available 08/15/2023 18:41:44 11/02/2023 11/02/2023 63-year-old male presents for follow-up of his left hip osteoarthritis. He has been doing physical therapy and taking meloxicam. We last saw him on 08/15/2023. He reports that he went to another orthopedist and got a cortisone injection to the hip joint on 08/24/2023. He currently rates his pain as 5/10, still has difficulty with daily activities. He does have a history diabetes. Antalgic gait. Pain with logroll. Flexion to 100, 10 of internal rotation, 30 external rotation. Positive Stinchfield. Negative Trendelenburg. He still has hip osteoarthritis. We discussed the only definitive treatment would be arthroplasty. He does not want to consider that until the end of the year or next year, in the meantime he requested a repeat cortisone injection. We discussed that he can get 1 every 3-4 months, and we will refer him to the hospital for that. He may follow-up as needed when he feels ready to proceed with arthroplasty. We will refer him to Dr. Bird who is the joint replacement specialist in our practice. Not available 11/03/2023 22:44:50 Plan of Treatment Reminders Order Date Submit Date Provider Last Modified By Organization Details Last Modified Time Details Appointments None recorded. Lab None recorded. Referral physical therapist referral - Please contact pt to schedule apt for L hip. Thanks 2023 [facility] Physical Therapy Dept, [address] [place] [address], [address], 17:46:19 Procedures injection, hip, fluoro guidance (PROC) - 4cc 1% Lidocaine & 40mg DepomedrolP recertifica tion Required?: N 2023 [facility] (Central Scheduling), [address] [place], [address], 12:27:56 Surgeries None recorded. Imaging None recorded. Medication Orders meloxicam 15 mg tablet 2023 [email or web address] [facility] [place], [address], 19:11:36 Patient TargetsNo targets recorded. Patient InstructionsNo instructions recorded. Reason for Referral Physical Therapist Referral for Pain of left hip joint L hip Please contact pt to schedule apt for L hip. Thanks Referring Physician: Dante Collins, Orthopedic Surgery, Encounter Date: 08/15/2023 Results Created Date Observation Date Name Description Value Unit Range Abnormal Flag Note LastModifiedBy Organization Detail LastModifiedTime 08/03/19 24 07/11/2023 XR, hip, unila teral , 2 or 3 view No observ ation record ed. [email or web address] Not Available 07/06 10:46:26 12/13/19 24 12/12/2023 injec tion, hip, fluor o marissa nce (PROC ) No observ ation record ed. [email or web address] [facility] [address] [place] [address], [address], 12/14/2023 08:45:57 Result Notes None recorded. Problems Name Problem SNOMED Code Status Onset Date Resolution Date Notes Provider Name and Address Organization Details Recorded Time Pain of left hip joint 9142453314610 00 Active 2023 HOWIE Boyce, [facility] 4 11:04:53 Osteoarthri tis 046776538 Active 2023 LINDA Anderson, [facility] 13:53:18 Osteoarthri tis of hip 861606033 Active 2023 Rosio gonzalez, [facility] 14:14:06 Problem Notes None recorded. Procedures Surgical History Date Name Laterality Status Provider Name and Address Organization Details Recorded Time procedure on wrist completed Vicki Baca CNA [facility] 08/15/2023 11:02:47 Skin Graft completed Vicki Baca CNA [employer] [facility] 08/15/2023 11:03:07 Imaging Results Imaging Date Name Status LastModified by Organiz ation Details LastModified Time 07/11/2023 XR, hip, unilateral, 2 or 3 view completed [email or web address] Information not available 08/03/2023 10:46:26 12/12/2023 injection, hip, fluoro guidance (PROC) completed [email or web address] [facility] [address] [place] [address], [place], [address], 12/14/2023 08:45:57 Procedure Notes None recorded. Medical Equipment None Reported. Allergies Allergen ID Allergen Name Allergen Category Reaction Reaction Severity Criticality Documentation Date Start Date Code Code System Note Provider Name and Address Organization Details Recorded Time 39505 Nexium medicatio n Not available Not available Not available 08/15/2023 13602 9 RxNorm HOWIE Boyce [place] [facility] 10:58:43 Medications Name Sig Start Date Stop Date Status Note LastModified by Organization Details LastModified Time albuterol sulfate 2.5 mg/3 mL (0.083 %) solution for nebulizatio n USE 1 VIAL IN NEBULIZER TWICE DAILY active Not Available Not Available No t Available meloxicam 15 mg tablet Take 1 tablet by mouth once daily 2023 active Not Available Not Available Not Avai lable amlodipine 5 mg tablet TAKE 1 TABLET BY MOUTH ONCE DAILY active Not Available Not Available No t Available omeprazole 40 mg capsule,del ayed release TAKE 1 CAPSULE BY MOUTH ONCE DAILY active Not Available Not Available No t Available montelukast 10 mg tablet TAKE 1 TABLET BY MOUTH ONCE DAILY active Not Available Not Available No t Available albuterol sulfate HFA 90 mcg/actuati on aerosol inhaler INHALE 2 PUFFS BY MOUTH EVERY 4 TO 6 HOURS active Not Available Not Available No t Available losartan 50 mg-hydrochl orothiazide 12.5 mg tablet TAKE 1 TABLET BY MOUTH ONCE DAILY active Not Available Not Available No t Available metformin ER 500 mg tablet,exte nded release 24 hr TAKE 2 TABLETS BY MOUTH TWICE DAILY active Not Available Not Available No t Available Lantus Solostar U-100 Insulin 100 unit/mL (3 mL) subcutaneou s pen INJECT 10 UNITS SUBCUTANE OUSLY AT BEDTIME 08/14 completed Not Available Not Available Not Available Trulicity 1.5 mg/0.5 mL subcutaneou s pen injector INJECT 1 SYRINGE SUBCUTANE OUSLY ONCE A WEEK active Not Available Not Available No t Available Trelegy Ellipta 100 mcg-62.5 mcg-25 mcg powder for inhalation INHALE 1 PUFF BY MOUTH ONCE DAILY 08/14 completed Not Available Not Available Not Available Trelegy Ellipta 200 mcg-62.5 mcg-25 mcg powder for inhalation INHALE 1 PUFF BY MOUTH ONCE DAILY active Not Available Not Available No t Available Semglee (insulin glargine-yf gn) Pen 100 unit/mL (3 mL) subcutaneou s INJECT 10 UNITS SUBCUTANE OUSLY AT BEDTIME active Not Available Not Available No t Available Ozempic 2 mg/dose (8 mg/3 mL) subcutaneou s pen injector INJECT 2 MG SUBCUTANE OUSLY ONCE A WEEK 08/14 completed Not Available Not Available Not Available Vitals Date Recorded Body height Body mass index (BMI) Body weight Provider Name and Address Organization Details Last Updated DateTime 08/15/2023 180.34 cm 33.5 kg/m2 433197.17 g Vicki Baca CNA [facility] 08/15/2023 10:58:13 Date Recorded Body height Body mass index (BMI) Body weight Provider Name and Address Organization Details Last Updated DateTime 11/02/2023 180.34 cm 41.1 kg/m2 876689.75 g Sandrita Ramos Whitney [employer] [facility] 11/02/2023 13:52:56 Social History Question Answer Notes LastModified by Organizat ion Details LastModified Time Tobacco Smoking Status Former Smoker Vicki Baca CNA null, [facility] 08/15/2023 11:02:25 When Did You Quit Smoking? 11-15yearss incelastcig arette 15 Years Ago [email or web address] Information not available 08/15/2023 Sex: Unknown Functional Status None recorded. Mental Status None recorded. Family History Relationship Description Onset Age of this Age Resolved Age Notes LastModified by Organization Details LastModified Time Mother Family history of stroke [email or web address] Not available 2023 11:01:12 Mother Family history of malignant neoplasm [email or web address] Not available 2023 11:01:26 Father Family history of malignant neoplasm [email or web address] Not available 2023 11:01:26 Medical History Condition Response LUNG DISEASE/DISORDER Y ARTHRITIS Y DIABETES, TYPE Y Past Encounters Encounter ID Performer Location Encounter Start Date Encounter Closed Date Diagnosis/Indication Diagnosis SNOMED-CT Code Diagnosis ICD10 Code [id number] Dante Collins MD [facility] [address], [address] [place] [address] 08/15/2023 10:43:24 08/15/2023 12:10:15 Pain of left hip joint 2330483906 47047 M25.618 [id number] Dante Collins MD [facility] [address] [place] [address] 11/02/2023 13:48:14 11/02/2023 14:16:22 Pain of left hip joint 2178099337 24774 M25.552 Osteoarthritis of hip 23 4814332 M16.12 Health Concerns Section Related Observation LastModified by Organization Detai ls LastModified Time None Recorded Concern Status LastModified by Organization Details LastModified Time None Recorded Advance Directives Directive None Recorded Payers Encounter Date Sequence Insurance Name Policy Number Policy Sommers Covered Member ID Sommers Member ID Guarantor Name 08/15/2023 1 [employer] (O) [id number] Danilo Reagan [id number] Danilo Reagan 11/02/2023 1 [employer] (HMO) [id number] Danilo Reagan [id number] Danilo Reagan
--- OUTSIDE RECORDS SUMMARY | 2024-03-05 02:21 | XMS_ITS | Continuity of Care Document ---
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 Plan of Treatment Reminders Order Date Submit Date Provider Last Modified By Organization Details Last Modified Time Details Appointments None recorded. Lab None recorded. Referral None recorded. Procedures None recorded. Surgeries None recorded. Imaging None recorded. Medication Orders montelukast 10 mg tablet 2023 024 [facility] [address] [place], [address], 15:50:19 Patient TargetsNo targets recorded. Patient InstructionsNo instructions recorded. Reason for Referral None Reported. Results Created Date Observation Date Name Description Value Unit Range Abnormal Flag Note LastModifiedBy Organization Detail LastModifiedTime 12/13/19 24 12/12/2023 sp needl e guide d fluor o [facility] al [address] [place] [address] [phone] TI Snider REPORT Name: DANILO CHAVIRA Room #: : 1960 Accoun t #: [id number] Bed #: Age: 63 Years Patien t Type: Outpat ient Order Date/T janessa: 2023 11:15: 11 AM Sex: M Access ion#: Exam Descri ption: Exam Reason : [id number] SP NEEDLE GUIDED FLUOR osteoa rthrit is of hip Dictat ed By: Jeremias Hernandez Orderi ng Physic mary: FRANK SIMENTAL Attend ing Physic mary: FRANK SIMENTAL Primar y Care Physic mary: GLORIAANDREA YOONCY Nhi LEFT HIP THERAP EUTIC INJECT ION WITH [...] explai davin to and discus sed with patien t who indica esequiel snider of propos ed proced ure and [...] cleans ed and dressi ng applie d. Patirupinder t tolera esequiel proced ure well withou t PAGE 1 OF 2 TI Snider REPORT Name: DANILO CHAVIRA Room #: : 1960 Accoun t #: [id number] Bed #: Age: 63 Years Lissette gudino Type: Outpat ient Order Date/T janessa: 2023 11:15: 11 AM Sex: M immedi ate compli cation . Lissette gudino stated pain level of 7-8/10 prior to proced ure and postpr ocedur e pain level of 6-7/10 . IMPRES KIT: Succes sful therap eutic inject ion of steroi d and local anesth etic into left hip joint as noted above. Electr onical ly signed by: Jeremias Hernandez MD 2023 11:22 AM CDT RP Workst ation: 109-87 134GN PAGE 2 OF [email or web address] [place] [address] [place] [address], [address], 12/13/2023 12:59:25 Result Notes None recorded. Problems Name Problem SNOMED Code Status Onset Date Resolution Date Notes Provider Name and Address Organization Details Recorded Time Essential hypertensi on 97812873 Active 2022 Brittany Bird BOARD CATCHER [address] [place] [address], [address] , [facility] 3 11:39:05 Gastroesop hageal reflux disease 129046714 Active 2022 Brittany Bird BOARD CATCHER [address], [place], [address] , [facility] 3 11:39:11 Mild intermitte nt asthma 325360499 Active 2022 Brittany Bird BOARD CATCHER [address], [place], [address] , [facility] 3 11:39:31 Lesion of tongue 452410885 Active 2022 Beth Centeno NP [address], [place], [address] , [facility] 3 10:48:49 Impacted cerumen of bilateral ears 6973054746707 108 Active 2022 Beth Centeno NP [address], [place], [address] , [facility] 3 10:49:26 Asthmatic bronchitis 306829663 Active 2022 Brittany Bird NP [address], [place], [address] , [facility] 3 10:43:30 Trochanter ic bursitis of left hip 2941788492102 03 Active 2023 GINNY Mcginnis [address], [place], [address] , [facility] 4 14:29:03 Osteoarthr itis of left hip joint 9540465666338 08 Active 2023 GINNY Mcginnis [address], [place], [address] , [facility] 4 10:34:31 Hip pain 20589274 Active 2023 GINNY Mcginnis [address], [place], [address] , [facility] 4 09:56:47 Pain of left hip joint 4351453569940 00 Active 2023 Tamiko gonzalez, Psychiatric 4 16:02:38 Type 2 diabetes mellitus without complicati on 803238499 Active 2023 GINNY Mcginnis [address] [place] [address], [address] , [facility] 4 13:35:13 Chronic asthmatic bronchitis 295100535 Active 2021 Not Available [facility] 3 22:47:21 Morbid obesity 451756868 Active 2021 Not Available [facility] 3 22:47:21 Uncontroll ed type 2 diabetes mellitus 871336184 Active 2021 Brittany Bird BOARD CATCHER [address] [place], [address] , [facility] 3 11:39:22 Multiple nodules of lung 720803186 Active 2021 Not Available [facility] 3 22:47:21 Hyperlipid emia 81080266 Active 2021 Not Available [facility] 3 22:47:21 Problem Notes None recorded. Procedures Surgical History Date Name Laterality Status Provider Name and Address Organization Details Recorded Time 05/28/19 23 colonoscopy completed GINNY Mcginnis [address] [place] [address], [address], [facility] 10/25/2022 09:26:48 03/07/19 04 Colonoscopy completed Not Available [facility] 03/14/19 23 22:48:33 osteoplasty of mandibular body completed Not Available [facility] 03/14/2022 22:48:33 grafting to skin completed Not Available [facility] 03/14/2022 22:48:33 Imaging Results None recorded. Procedure Notes None recorded. Medical Equipment None Reported. Allergies Allergen ID Allergen Name Allergen Category Reaction Reaction Severity Criticality Documentation Date Start Date Code Code System Note Provider Name and Address Organization Details Recorded Time 364458 Nexium medicatio n anaphylax is moderate Not available 03/14/2022 44197 9 RxNorm SORES ON BACK, LIVER AND KIDNE Y DAMAG E WITH TROUB LE BREAT YAYA Not Available [facility] 3 02:29:59 Medications Name Sig Start Date [...] Updated DateTime 4 180.34 cm 41.7 kg/m2 951698. 12 g 98 [degF] 98 /min 18 /min 97 % 97 % 146 mm[Hg] 88 mm[Hg] [facility] 4 15:21:15 Social History Question Answer Notes LastModified by Organizat ion Details LastModified Time Tobacco Smoking Status Former Smoker 10+ Not Available [facility] 03/14/2022 22:45:07 What Is Your Level Of Alcohol Consumption? Moderate MIGRATION.375575 3331 Information not available 03/14/2022 What Is Your Level Of Caffeine Consumption? Moderate Information not available 05/17/2022 How Much Tobacco Do You Chew? None MIGRATION.277986 6355 Information not available 03/14/2022 In The 14 Days Before Symptom Onset, Have You Had Close Contact With A Laboratory-confir med COVID-19 While That Case Was Ill? No MIGRATION.068927 7824 Information not available 03/14/2022 In The 14 Days Before Symptom Onset, Have You Had Close Contact With A Person Who Is Under Investigation For COVID-19 While That Person Was Ill? No MIGRATION.252290 3123 Information not available 03/14/2022 What Type Of Diet Are You Following? REGULAR MIGRATION.583972 3610 Information not available 03/14/2022 Do You Or Have You Ever Used E-cigarettes Or Vape? Never Used Electronic Cigarettes MIGRATION.917467 0777 Information not available 03/14/2022 Have There Been Any Changes To Your Family Or Social Situation? No Information no t available 07/19/2022 When Did You Quit Smoking? 11-15yearssinc elastcigarette Information not available 02/17/2024 Do You Use Insect Repellent Routinely? Yes Information not available 07/19/2022 Are You In An Abusive/frighteni ng Relationship? No MIGRATION.326833 2317 Information not available 03/14/2022 Do You Feel Hopeless Or Helpless No [email or web address] Information not available 04/12/2022 Have You Had Thoughts Of Suicide? No MIGRATION.716244 6872 Information not available 03/14/2022 Are You Having Any Suicidal Thoughts Now? No MIGRATION.435156 9968 Information not available 03/14/2022 Have You Previously Attempted Suicide? No MIGRATION.438047 1075 Information not available 03/14/2022 Do You Have A Plan To Hurt Yourself Or Others? No [email or web address] Information not available 04/12/2022 Has A Family Member Or Someone Close To You Committed Suicide Or Have You Been A Witness To Suicide? No MIGRATION.822741 9967 Information not available 03/14/2022 Have You Fallen In The Last 3 Months? Yes MIGRATION.360592 8072 Information not available 03/14/2022 If Yes, Did [...] Plan To Hurt Yourself Or Others? No MIGRATION.667903 3553 Information not available 03/14/2022 Do You Feel Hopeless Or Helpless? No MIGRATION.466761 9336 Information not available 03/14/2022 What Was The [...] Used Smokeless Tobacco? Never Used Smokeless Tobacco MIGRATION.253033 1059 Information not available 03/14/2022 Are There Any Smokers In Your House? No Information not available 07/19/2022 How Much Tobacco Do You Smoke? 1 PPD MIGRATION.612160 6227 Information not available 03/14/2022 Do You Participate In Social Dynamics? Yes Information not available 07/19/2022 Do You Feel Stressed (tense, Restless, Nervous, Or Anxious, Or Unable To Sleep At Night)? DQ4418-5 Information not available 07/19/2022 Do You Use Any Illicit Or Recreational Drugs? No Information not available 07/19/2022 Do You Use Sunscreen Routinely? Yes Information not available 07/19/2022 How Many Years Have You Smoked Tobacco? 0 MIGRATION.695713 2002 Information not available 03/14/2022 Have You Recently Traveled Abroad? No MIGRATION.178449 7834 Information not available 03/14/2022 Do You Have Any Dietary Restrictions? No Information not available 07/19/2022 Do You Or Have You Ever Used Any Other Forms Of Tobacco Or Nicotine? No Information not available 07/19/2022 Sex: Male Functional Status Question Answer Note LastModified by Organizat ion Details LastModified Time Do you have difficulty walking or climbing stairs? Yes MIGRATION.488941988 1 Information not available 03/14/2022 What is your exercise level? None MIGRATION.529158105 1 Information not available 03/14/2022 Mental Status Question Answer Note LastModified by Organizat ion Details LastModified Time Do you have difficulty concentrating, remembering or making decisions? Yes SOB MIGRATION.[id number] 1 Information not available 03/14/2022 Family History Relationship Description Onset Age of this Age Resolved Age Notes LastModified by Organization Details LastModified Time Father Neoplasm of large intestine 67 liver, lung, brain MIGRATION.049 [id number] Not available 03/14/2022 22:44:34 Mother Malignant neoplastic disease 88 some type of intest inal cancer , pt isn't sure. MIGRATION.185 [id number] Not available 03/14/2022 22:44:34 Mother Cerebrovascu lar accident 88 MIGRATION.990 [id number] Not available 03/14/2022 22:44:34 Notes:1 brother 2 sister Medical History Condition Response HYPERTENSION Y Immunizations Vaccine Type Date Status Note Provider Nam e and Address Organization Details Recorded Time Influenza, high-dose, trivalent, PF 4 completed GINNY Mcginnis [address] [place] [address], [address], [facility] 12/30/2023 23:53:56 Pneumococcal conjugate PCV20, polysaccharide KFE114 conjugate, adjuvant, PF 3 completed GINNY Mcginnis [address] [place] [address], [address], [facility] 10/25/2022 13:55:47 zoster recombinant 3 completed GINNY Mcginnis [address] [place] [address], [address], [facility] 10/25/2022 13:55:47 COVID-19, mRNA, LNP-S, PF, 100 mcg/0.5mL dose or 50 mcg/0.25mL dose 2 [facility] 16:46:26 Influenza, split virus, quadrivalent, preservative 9 completed Not Available [facility] 03/14/2022 22:48:25 COVID-19, mRNA, LNP-S, PF, 100 mcg/0.5mL dose or 50 mcg/0.25mL dose 1 completed Not Available [facility] 03/14/2022 22:48:25 COVID-19, mRNA, LNP-S, PF, 100 mcg/0.5mL dose or 50 mcg/0.25mL dose 1 completed Not Available [facility] 03/14/2022 22:48:25 Tdap 3 completed Brittany Bird BOARD CATCHER [address] [place] [address], [address], [facility] 04/12/2022 11:30:31 zoster recombinant 3 completed Brittany Bird BOARD CATCHER [address] [place] [address], [address], [facility] 04/12/2022 11:30:31 Influenza, MDCK, quadrivalent, PF 0 completed [facility] 04/11/2023 16:46:26 Influenza, MDCK, quadrivalent, PF 2 completed [facility] 04/11/2023 16:46:26 Influenza, split virus, quadrivalent, PF 1 completed [facility], [facility] 04/11/2023 16:46:26 Influenza, split virus, quadrivalent, PF 3 completed GINNY Mcginnis [address] [place] [address], [address], [facility] 01/25/2023 11:12:17 Past Encounters Encounter ID Performer Location Encounter Start Date Encounter Closed Date Diagnosis/Indication Diagnosis SNOMED-CT Code Diagnosis ICD10 Code [id number] GINNY Mcginnis [facility] [address] 12/30/2023 15:10:49 01/02/2024 03:52:17 Osteoarthritis of left hip joint 6421968579 41237 M16.12 Mild inter mittent asthma 773711250 J45.20 Administra tion of influenza vaccine 42719897 Z23 Health Concerns Section Related Observation LastModified by Organization Detai ls LastModified Time None Recorded Concern Status LastModified by Organization Details LastModified Time None Recorded Payers Encounter Date Sequence Insurance Name Policy Number Policy Sommers Covered Member ID Sommers Member ID Guarantor Name 12/30/2023 1 [employer] (HMO) [id number] Danilo Jeane Reagan [id number] Danilo Reagan Notes Date Note Type Note Provider Name and Address Organization Details Recorded Time 12/30/2023 text/html 63 year old male presents [...] replacement. He does need a flu shot. Chiquis Braxton, ANP-C [address] [place] [address], [address], [facility] 12/30/2023 23:56:29
--- OUTSIDE RECORDS SUMMARY | 2024-03-05 02:22 | XMS_ITS | Encounter Summary ---
Author Organization [facility] Address [address] [place] [address] Care Team Providers Care Automatic Door Mechanic Name Role Phone Unavailable Primary Care Provider Unavailabl e Reason for Visit * Reason Onset Date Comments Results 11/18/2022 CXR Encounter Details Date Type Department Care Team (Late st Contact Info) Description 11/18/2022 Telephone [facility] [place] [facility] [place] [address] [place] [address] Cristobal Garcia MD [address] [facility] [address] [place] [address] Results (CXR) Social History Tobacco Use Types Packs/Day Years Used Date Smoking Tobacco: Never Smokeless Tobacco: Never Sex and Gender Information Value Date Recorded Sex Assigned at Not on file Gender Identity Not on file Sexual Orientation Not on file documented as of this encounter Miscellaneous Notes * Telephone Encounter - America Cottrell RN - 11/19/2022 11:06 AM CDT Called patient who said his answering machine went out Tuesday and he just got a new one. Gave him his CXR results per Dr. Garcia's comments below. * Telephone Encounter - Cristobal Garcia MD - 11/18/2022 5:24 PM CDT I tried to call him multiple times but the number does not go voicemail. Please try to call him andlet him know that the chest x-ray he had today looks normal with no significant abnormalities documented in this encounter Plan of Treatment Not on file documented as of this encounter Visit Diagnoses Not on filedocumented in this encounter
--- OUTSIDE RECORDS SUMMARY | 2024-03-05 02:22 | XMS_ITS | Encounter Summary ---
Author Organization [facility] Address [address] [place] [address] Care Team Providers Care Medical Reimbursement Manager Name Role Phone Unavailable Primary Care Provider Unavailabl e Encounter Details Date Type Department Care Team (Late st Contact Info) Description 04/25/2023 External Device Data [facility] ABSTRACTION Provider, Abstract NO ADDRESS ON FILE Social History Tobacco Use Types Packs/Day Years Used Date Smoking Tobacco: Never Smokeless Tobacco: Never Sex and Gender Information Value Date Recorded Sex Assigned at Not on file Gender Identity Not on file Sexual Orientation Not on file documented as of this encounter Plan of Treatment Not on file documented as of this encounter Visit Diagnoses Not on filedocumented in this encounter
--- OUTSIDE RECORDS SUMMARY | 2024-03-05 02:22 | XMS_ITS | Encounter Summary ---
Author Organization [facility] Healthcare Address [address] [place] [address] Care Team Providers Care Laborer Sawmill Name Role Phone Sofía Rowan NP Primary Care Provider [phone] Encounter Details Date Type Department Care Team (Late st Contact Info) Description 10/16/2019 8:57 AM CDT Hospital Encounter [facility]IM Varinder Adler MD [address] [facility] [address] [id number] Social History Tobacco Use Types Packs/Day Years Used Date Smoking Tobacco: Former Cigarettes Q uit: 10/03/2009 Alcohol Use Standard Drinks/Week Comments Not Currently 0 (1 standard drink = 0.6 oz pur e alcohol) Sex and Gender Information Value Date Recorded Sex Assigned at Not on file Legal 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 07/26/2019 losartan-hydroCHL OROthiazide (HYZAAR) 50-12.5 mg per tablet losartan 50 mg-hydrochlorothi azide 12.5 mg tablet TAKE 1 TABLET BY MOUTH EVERY DAY montelukast (SINGULAIR) 10 mg tablet Take 10 mg by mouth daily omeprazole (PriLOSEC) 40 mg capsuleIndication s:Gastroesophagea l reflux disease, esophagitis presence not specified Take 1 capsule (40 mg total) by mouth daily 90 capsule 6 10/04/2019 documented as of this encounter Plan of Treatment Not on file documented as of this encounter Procedures Procedure Name Priority Date/Time Associated Diagnosis Comments SCAN - LABS 10/17/2019 12:00 AM CDT COVID-19 CORONAVIRUS RNA Routine 10/16/2019 12:44 PM CDT documented in this encounter Results * SCAN - LABS (10/17/2019 12:00 AM CDT) Narrative 10/17/2019 12:00 AM CDT Ordered by an unspecified provider. us Historical Provider Final Res ult * COVID-19 Coronavirus RNA (10/16/2019 12:44 PM CDT) COVID-19 Coronavirus RNA NOT DETECTED [facility] Comment: A negative result does not rule out the possibility of COVID-19 and should not be used as the sole basis for patient management decisions. Coronavirus (COVID-19) Interp SEE COMMENT [facility] Coronavirus (COVID-19) Results called to PRP [facility] Misc Performing Lab [facility] 10/16/2019 12:4 4 PM CDT 10/16/2019 12:44 PM CDT Narrative Resulting Agency Comment CLI us Varinder Adler MD LAB MICROBIOLOGY - GENERAL OR DERABLES Final Result [facility] [address] [place] [address], [facility] [phone] documented in this encounter Visit Diagnoses Not on filedocumented in this encounter Care Teams Laborer Sawmill Relationship Specialty Start Date End Date Sofía Rowan NP [address] [place] [address] PCP - General Adon 09/28/19 01/16/24 documented as of this encounter
--- OUTSIDE RECORDS SUMMARY | 2024-03-05 02:22 | XMS_ITS | Encounter Summary ---
Author Organization [facility] Address [address] [place] [address] Care Team Providers Care Music Director Name Role Phone Unavailable Primary Care Provider Unavailabl e Encounter Details Date Type Department Care Team (Late st Contact Info) Description 09/20/2023 External Device Data [facility] ABSTRACTION Provider, Abstract [...]
--- OUTSIDE RECORDS SUMMARY | 2024-03-05 02:22 | XMS_ITS | Continuity of Care Document ---
Author Organization [facility] Address [address] [place] [address] Phone Care Team Providers Care Craft Superintendent Name Role Phone Reina Hood Unavailable Unavailable Allergies, Adverse Reactions, Alerts Substance Reaction Status Criticality ESOMEPRAZOLE MAGNESIUM Active No In formation Medications Medication Instructions Dosage Effective Dates (start - stop) Status Comments losartan 25 mg tablet take 1 tablet by o ral route every day 25 MG - Active amlodipine 2.5 mg tablet take 1 tablet by oral route every day 2.5 MG - Active metformin 500 mg tablet take 1 tablet by oral route 2 times every day with morning and evening meals 500 MG - Active Procedures Procedure Date Fluoroscopic Guidance; Non Spinal Fluoroscopic Guidance; Non Spinal Kenalog 40mg/mL Kenalog 10mg/mL Asp/inject major joint or bursa w/o US g uidance Office/outpatient visit,new, mod 2023 BMI Documented Above Normal Limit F/U Pl an Doc Advance Directives Directive Yes / No Effective Date File Name No Information Encounters Encounter Description Practice Location Reason(s) For Visit Diagnoses Date Provider Providers Copied on Encounter [facility], [address], [place], [place], [id number], [place] tel:[phone] [facility] left hip pain (chief complaint) Unilateral primary osteoarthri tis, left hip 4 Ba Huang . [address], [address], [place], [place], [id number] , [place]. tel:[phone] Referring Provider: Zohra Hankins, [address] [place] [address], [address]. tel:[phone] Office/outpat ient visit,[facility] [place] [facility], [address], [place], [place], [id number], tel:[phone] [facility] left hip pain (chief complaint) Unilateral primary osteoarthri tis, left hip 4 House Reina . [address] [facility] [address], [address], [place], [place], [id number] , [place]. tel:[phone] Referring Provider: Zohra Hankins, [address] [place] [address], [address]. tel:[phone] Family History Family Member Type Diagnosis Age At Onset Mother Problem (finding) Cancer, unknown Father Problem (finding) Cancer, unknown Mother Problem (finding) Stroke Payers Payer name Insurance type Covered democrat ID Authoriza tion(s) No Information Social History Type Description Quantity Date Captured Comments Alcohol Use Details Unknown Caffeine Use Details Unknown Tobacco Use Status No Information Smoking Status No Information Non-Smoking Tobacco Use Details : No Details Available : No Details Available Sex Male Vital Signs Date / Time: Height Weight BMI Pulse Rate Blood Pressure Temperature Respiratory Rate Body Surface Area Head Circumference Head Circ. Percentile Wt./[place]. Percentile BMI percentile Pulse Ox Inhaled Ox 1:36 PM 71.00 in 133.810 kg (295.00 lbs) 41.1 4 kg/m eter (2) 2.59 meter(2) Chief Complaint And Reason For Visit From encounter dated '08/24/2023 14:45'. left hip pain (chief complaint). Description: He presents with pain on the left side. The patient has known hip osteoarthritis and would like to continue with a fluoro guided cortisone injection intothe involved hip today. Reason For Referral Reason For Referral No Information History Of Present Illness Encounter Date Complaint History Of Prese nt Illness left hip pain He presents with pain on the left side. The patient has known hip osteoarthritis and would like to continue with a fluoro guided cortisone injection into the involved hip today. left hip pain Mr Reagan is a 63 year old male who complains of left hip pain. He presents with pain on the left side. He states that the symptoms have been chronic non-traumatic. The symptoms occur constantly with intermittent worsening. The problem is unchanged. Currently the patient states that the symptoms are mild-moderate. The pain is described as to the groin and localized. The symptoms occur with activity. He rates his current pain as 4/10. The pain does not radiate. The symptoms are aggravated by daily activities, movement, standing, walking and ascending stairs. Danilo states that the symptoms are relieved by rest, ice and OTC medicines. In addition to left hip pain the patient is also experiencing decreased mobility, grinding, nocturnal awakening, stiffness, difficulty bending and limping. Pertinent negatives include chills, fever, instability, tingling in the arms and weight loss. The patient has had a previous x-ray. Prior NSAIDs include unspecified NSAIDS. Patient has had no prior surgeries. There were no previous episodes. Functional Status Date Functional Assessmen t No Information Instructions Date Instruction Additional Infor alexandrea Injection performed today as documented. Continue non-operative treatments as outlined previously. Follow up prn if symptoms return or worsen. Questions answered, verbalized understanding. Related to Unilateral primary osteoarthritis, left hip The patient would li ke to proceed with a fluoroscopic guided cortisone injection into the involved hip. We discussed this will be done by me, as I specialize in these injections, and we will make these arrangements. We discussed weight loss/control, NSAIDs/Tylenol, activity modifications, and physical therapy and home strengthening exercises as appropriate. We discussed repeat injection in 3 months or more if needed there is a good response. We discussed possible total hip replacement in the future if non-surgical treatment fails provided the patient meets medical and rehabilitation criteria. We discussed joint replacement would need to be at least 3 months post injection for prosthetic infection concerns. We discussed at that point I would make a referral to one the surgeons at that perform total hips, as Dr. Padgett performs hip arthroscopy and does not routinely perform ANNIE. The patient will follow up on an as needed basis. Questions answered, verbalized understanding. Related to Unilateral primary osteoarthritis, left hip Assessments Type Assessment Date assessment Unilateral primary osteoarthriti s, left hip Patient Care Teams Name Effective Dates (start - stop) Status Members No Information
--- OUTSIDE RECORDS SUMMARY | 2024-03-05 02:22 | XMS_ITS | Clinical Summary ---
Author Organization [facility] Address [address] [place] [address] Phone Care Team Providers Care Box Person Name Role Phone Unavailable Primary Care Provider Unavailabl e Allergies Active Allergy Reactions Criticality Noted Date Comments Esomeprazole Magnesium Other (See Comments) 05/2018 Stomach pain, organ failure Medications Medication Sig Dispensed Refills Start Date End Date Status albuterol HFA 90 mcg inhaler Take 2 Puffs by inhalation every 6 hours as needed for Shortness of Breath. Active doxycycline hyclate (VIBRAMYCIN) 100 mg capsule Take 100 mg by mouth 2 times daily. Active losartan-hydroCHLOR Othiazide (HYZAAR) 50-12.5 mg tablet Take 1 Tablet by mouth daily. Active predniSONE (DELTASONE) 20 mg tablet Take 20 mg by mouth daily. Active montelukast (SINGULAIR) 10 mg tablet Take 10 mg by mouth daily at bedtime. Active benzonatate (TESSALON) 100 mg capsule Take 100 mg by mouth 3 times daily. Active fexofenadine (JURGEN) 180 mg tablet Take 1 Tablet (180 mg) by mouth daily. 30 Tablet 4 12/07/2018 Active fluticasone propionate (FLONASE) 50 mcg/spray [place], Suspension nasal inhaler Administer 1 [place] in each nostril 2 times daily. 16 Gram 4 12/07/2018 Active fluticasone furoate-vilanterol (BREO ELLIPTA) 200-25 mcg/dose Disk with Device Take 1 Puff by inhalation daily. 1 Inhaler 3 12/07/2018 Active fluticasone furoate-vilanterol (BREO ELLIPTA) 200-25 mcg/dose Disk with DeviceIndications:L OT: [id number] EXP: 03/27 Take 1 Puff by inhalation daily. 2 Each 12/07/2018 Active amLODIPine (NORVASC) 5 mg tablet Take 1 Tablet by mouth daily. Active metFORMIN (GLUCOPHAGE XR) 500 mg Extended Release 24 hour tablet Take 1,000 mg by mouth 2 times daily. Active atorvastatin (LIPITOR) 10 mg tablet Take 1 Tablet by mouth daily. 06/30/2022 Active insulin glargine-yfgn (Semglee,insulin glarg-yfgn,Pen) 100 unit/mL pen syringe Inject 10 Units by subcutaneous injection daily at bedtime. Active semaglutide (Ozempic) 2 mg/dose (8 mg/3 mL) Pen Injector Inject 2 mg by subcutaneous injection every 7 days. Active omeprazole (PriLOSEC) 40 mg Capsule, Delayed Release(E.C.) Take 1 Capsule by mouth every 7 days. 06/29/2022 Active albuterol (PROVENTIL,VENTOLIN ) 2.5 mg /3 mL (0.083 %) Solution for Nebulization USE 1 VIAL IN NEBULIZER TWICE DAILY Active Active Problems Problem Noted Date Diagnosed Date Morbid obesity with body mass index of 40.0-49.9 Encounters Date Type Department Care Team Description 01/09/2024 External Device Data [facility] ABSTRACTION Provider, Abstract from Last 3 Months Social History Tobacco Use Types Packs/Day Years Used Date Smoking Tobacco: Never Smokeless Tobacco: Never Tobacco Cessation:Counseling Given: Not Answered Sex and Gender Information Value Date Recorded Sex Assigned at Not on file Gender Identity Not on file Sexual Orientation Not on file Last Filed Vital Signs Vital Sign Reading Time Taken Comments Blood Pressure 140/90 11/18/2022 10:24 AM CDT Pulse 73 11/18/2022 10:24 AM CDT Temperature - - Respiratory Rate 18 12/07/2018 9:45 AM CDT Oxygen Saturation 95% 11/18/2022 10:24 AM CDT Inhaled Oxygen Concentration - - Weight 142.9 kg (315 lb) 11/18/2022 10:24 AM CDT Height 180.3 cm (5' 11 ) 11/18/2022 10:24 AM CDT Body Mass Index 43.93 11/18/2022 10:24 AM CDT Plan of Treatment Health Maintenance Due Date Last Done Comments PNEUMOCOCCAL VACCINE 65+ YEA RS (1 of 2 - PCV) 1964 DIABETES ANNUAL FOOT EXAM 1976 DIABETES ANNUAL RETINAL EXAM 1976 DIABETES HBA1C Q 6 MONTHS 1976 DIABETES MICROALBUMIN ANNUAL SCREEN 1976 LDL CHOLESTEROL ANNUAL 1976 FIT-DNA Q 3 years 2003 FIT/FOBT Q 1 year 2003 Flex Sig/CT Colonography Q 5 years 2003 RSV VACCINE (60+ or ) (1 - Risk 60-74 years 1-dose series) 2018 INFLUENZA VACCINE (#1) 2023 2, 12/15/2020, 12/14/2019, Additional history exists COVID-19 Vaccine (2023-2 5 season) 2023 04/17/2021, 07/15/2020, 06/19/2020 DTAP/TDAP/TD VACCINES (2 - T d or Tdap) 04/12/2032 04/12/2022 COLORECTAL SCREENING 05/27/2032 05/27/2022 Colorectal Cancer Screening 05/27/2032 ZOSTER VACCINE Completed 10/25/2022, 04/12/2022
--- OUTSIDE RECORDS SUMMARY | 2024-03-05 02:22 | XMS_ITS | Encounter Summary ---
Author Organization [facility] Address [address] [place] [address] Care Team Providers Care Script Girl Name Role Phone Unavailable Primary Care Provider Unavailabl e Reason for Visit * Reason Comments Follow Up Encounter Details Date Type Department Care Team (Late st Contact Info) Description 11/18/2022 10:30 AM CDT Office Visit [facility] [address] [place] [address] Cristobal Garcia MD [address] [place] [address] VAIL (dyspnea on exertion) (Primary Dx) Social History Tobacco Use Types Packs/Day Years Used Date Smoking Tobacco: Never Smokeless Tobacco: Never Tobacco Cessation:Counseling Given: Not Answered Sex and Gender Information Value Date Recorded Sex Assigned at Not on file Gender Identity Not on file Sexual Orientation Not on file documented as of this encounter Last Filed Vital Signs Vital Sign Reading Time Taken Comments Blood Pressure 140/90 11/18/2022 10:24 AM CDT Pulse 73 11/18/2022 10:24 AM CDT Temperature - - Respiratory Rate - - Oxygen Saturation 95% 11/18/2022 10:24 AM CDT Inhaled Oxygen Concentration - - Weight 142.9 kg (315 lb) 11/18/2022 10:24 AM CDT Height 180.3 cm (5' 11 ) 11/18/2022 10:24 AM CDT Body Mass Index 43.93 11/18/2022 10:24 AM CDT documented in this encounter Progress Notes * Cristobal Garcia MD - 11/18/2022 10:26 AM CDT Pulmonary Outpatient History and Physical Cristobal Garcia MD 11/18/2022 10:26 AM Patient Name: Danilo Reagan 1960 Primary Care Physician: No primary care provider on file. Date of Service: 11/18/2022 Impression: Dyspnea on exertion Recommendations: I reviewed prior radiographs directly with patient. Chest CT in 2019 showed no significant parenchymal abnormalities. There were tiny nodules that are most likely benign along with calcified nodules that were clearly benign. Chest x-ray today shows no acute infiltrates Continue Trelegy, albuterol as needed I requested PFT from [facility] and PCP provider I discussed there is no evidence of parenchymal lung disease. I suspect a significant component of deconditioning and likely has a component of asthma. I will review outside hospital PFTs if they areavailable. I recommended continuing Trelegy and using albuterol as needed. Even with some componentof deconditioning he still is able to do significant amount of construction work No chief complaint on file. HPI: Patient is a 62 y.o. male who is seen in consultation. He presents for evaluation of shortness of breath. He saw Dr. Meade in 2019. Chest CT at that time showed no significant parenchymal abnormalities. He was started on inhalers for asthma including Breo as well as oral Singulair. 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 He feels that he has developed some dyspnea on exertion but his activity level still is very good. He smoked about 20 years and quit many years ago. He does have exposure to concrete dust sawdust and some solvents in his line of work He is now on Trelegy He does have albuterol for rescue No past medical history on file. No past surgical history on file. Current Medications: Current Outpatient Medications Medication Sig Dispense Refill amLODIPine (NORVASC) 5 mg tablet Take 1 Tablet by mouth daily. metFORMIN (GLUCOPHAGE XR) 500 mg Extended Release 24 hour tablet Take 1,000 mg by mouth 2 times daily. atorvastatin (LIPITOR) 10 mg tablet Take 1 Tablet by mouth daily. insulin glargine-yfgn (Semglee,insulin glarg-yfgn,Pen) 100 unit/mL pen syringe Inject 10 Units by subcutaneous injection daily at bedtime. semaglutide (Ozempic) 2 mg/dose (8 mg/3 mL) Pen Injector Inject 2 mg by subcutaneous injection every 7 days. omeprazole (PriLOSEC) 40 mg Capsule, Delayed Release(E.C.) Take 1 Capsule by mouth every 7 days. albuterol (PROVENTIL,VENTOLIN) 2.5 mg /3 mL (0.083 %) Solution for Nebulization USE 1 VIAL IN NEBULIZER TWICE DAILY albuterol HFA 90 mcg inhaler Take 2 Puffs by inhalation every 6 hours as needed for Shortness of Breath. doxycycline hyclate (VIBRAMYCIN) 100 mg capsule Take 100 mg by mouth 2 times daily. losartan-hydroCHLOROthiazide (HYZAAR) 50-12.5 mg tablet Take 1 Tablet by mouth daily. predniSONE (DELTASONE) 20 mg tablet Take 20 mg by mouth daily. montelukast (SINGULAIR) 10 mg tablet Take 10 mg by mouth daily at bedtime. benzonatate (TESSALON) 100 mg capsule Take 100 mg by mouth 3 times daily. fluticasone furoate-vilanterol (BREO ELLIPTA) 200-25 mcg/dose Disk with Device Take 1 Puff by inhalation daily. 1 Inhaler 3 fluticasone furoate-vilanterol (BREO ELLIPTA) 200-25 mcg/dose Disk with Device Take 1 Puff by inhalation daily. 2 Each 0 fexofenadine (JURGEN) 180 mg tablet Take 1 Tablet (180 mg) by mouth daily. 30 Tablet 4 fluticasone propionate (FLONASE) 50 mcg/spray [place], Suspension nasal inhaler Administer 1 [place] ineach nostril 2 times daily. 16 Gram 4 No current facility-administered medications for this visit. Medication Allergies: Allergies Allergen Reactions Esomeprazole Magnesium Other (See Comments) Stomach pain, organ failure No family history on file. Social History Tobacco Use Smoking status: Never Smokeless tobacco: Never Substance Use Topics Alcohol use: Not on file Objective PHYSICAL EXAM BP (!) 140/90 Pulse 73 Ht 5' 11 (1.803 m) Wt (!) 142.9 kg (315 lb) SpO2 95% BMI 43.93 kg/m?? General: No Distress HEENT: NCAT, Neck: Supple, symmetrical, trachea midline, no adenopathy Lungs: Clear Breath Sounds Heart: S1, S2 Normal Abdomen: Soft Non-Tender Extremities: No cyanosis, Clubbing or Edema Asthma Questionnaire: In the past 4 weeks, how much of the time did your asthma keep you from getting as much done at work, school or at home? All of the time Most of the time Some of the time A little of the time None of the time Answer: 3 During the past 4 weeks, how often have you had shortness of breath? More than once a day Once a day 3 to 6 times a week Once or twice a week Not at all Answer: 1 During the past 4 weeks, how often did your asthma symptoms (wheezing, coughing, shortness of breath, chest tightness or pain) wake you up at night or earlier than usual in the morning? 4 or more nights a week 2 to 3 times a week Once a week Once or twice Not at all Answer: 4 During the past 4 weeks, how often have you used your rescue inhaler or nebulizer medication (such as albuterol)? 3 or more times per day 1 or 2 times per day 3 or 4 times per week Once a week or less Not at all Answer: 2 How would you rate your asthma control during the past 4 weeks? Not controlled at all Poorly controlled Somewhat controlled Well controlled Completely controlled Answer: 3 TOTAL SCORE: 13 TOBACCO COUNSELING He is not a tobacco/nicotine user. DATA BASE: Radiology No results found for this or any previous visit. No results found for this or any previous visit. Cardiac No results found for this or any previous visit. Be advised that voice recognition software was used in the production of this record. Errors in interpretation may have been inadvertently missed during review. Cristobal Garcia MD documented in this encounter Plan of Treatment Not on file documented as of this encounter Results * XR CHEST PA AND LATERAL 2 VW (11/18/2022 11:57 AM CDT) Anatomical Region Laterality Modality Chest Computed Radiogr aphy 11/18/2022 11:5 8 AM CDT Impressions 11/18/2022 2:17 PM CDT IMPRESSION: ?? 1. No focal lung consolidation. DICTATION LOCATION: Location 1 - [facility] Narrative 11/18/2022 2:17 PM CDT EXAMINATION: X-RAY CHEST PA AND LATERAL 2 VIEWS DATE: 11/18/2022 11:57 AM HISTORY: Shortness of breath. COMPARISON: None FINDINGS: There is old granulomatous disease in the right upper lobe. No focal lung consolidation, pneumothorax or pleural effusion. The cardiomediastinal silhouette is unchanged. Procedure Note Leandro Menchaca MD - 11/18/2022 EXAMINATION: X-RAY CHEST PA AND LATERAL 2 VIEWS DATE: 11/18/2022 11:57 AM HISTORY: Shortness of breath. COMPARISON: None FINDINGS: There is old granulomatous disease in the right upper lobe. No focal lung consolidation, pneumothorax or pleural effusion. The cardiomediastinal silhouette is unchanged. IMPRESSION: 1. No focal lung consolidation. DICTATION LOCATION: Location 1 - [facility] Cristobal Garcia MD DIAGNOSTIC RADHA GING ORDERABLES documented in this encounter Visit Diagnoses Diagnosis VAIL (dyspnea on exertion)- Primary Other dyspnea and respiratory abnormality VAIL (dyspnea on exertion) Other dyspnea and respiratory abnormality documented in this encounter
--- OUTSIDE RECORDS SUMMARY | 2024-03-05 02:22 | XMS_ITS | Encounter Summary ---
Author Organization [facility] Address [address] [place] [address] Care Team Providers Care Kiln Car Repairer Name Role Phone Unavailable Primary Care Provider Unavailabl e Encounter Details Date Type Department Care Team (Late st Contact Info) Description 05/20/2023 External Device Data [facility] ABSTRACTION Provider, Abstract [...]
--- OUTSIDE RECORDS SUMMARY | 2024-03-05 02:22 | XMS_ITS | Encounter Summary ---
Author Organization [facility] Address [address] [place] [address] Care Team Providers Care Quality Process Engineer Name Role Phone Unavailable Primary Care Provider Unavailabl e Encounter Details Date Type Department Care Team (Late st Contact Info) Description 11/24/2022 Abstract [facility] Pulmonology [facility] [address] [place] [address] Cristobal Garcia MD [address] [place] [address] Social History Tobacco Use Types Packs/Day Years [...]
--- OUTSIDE RECORDS SUMMARY | 2024-03-05 02:22 | XMS_ITS | Clinical Summary ---
Author Organization [facility] Address [address] [place] [address] Care Team Providers Care Zyglo Technician Name Role Phone Zohra Braxton NP Primary Care Provider [phone] Allergies Active Allergy Reactions Criticality Noted Date Comments Esomeprazole Anaphylaxis,Unknown High 12/07/2018 Stomach pain, organ failure Medications albuterol 2.5 mg /3 mL (0.083 %) nebulizer solution albuterol sulfate 2.5 mg/3 mL (0.083 %) solution for nebulization VVN BID Active albuterol HFA (PROVENTIL HFA,VENTOLIN HFA,PROAIR HFA) 90 mcg/actuation inhaler albuterol sulfate HFA 90 mcg/actuation aerosol inhaler Inhale 2 puffs every 4-6 hours by inhalation route. 0 Active losartan-hydroC HLOROthiazide (HYZAAR) 50-12.5 mg per tablet losartan 50 mg-hydrochloroth iazide 12.5 mg tablet TAKE 1 TABLET BY MOUTH EVERY DAY Active montelukast (SINGULAIR) 10 mg tablet Take 10 mg by mouth daily Active omeprazole (PriLOSEC) 40 mg capsuleIndicati ons:Gastroesoph ageal reflux disease, esophagitis presence not specified Take 1 capsule (40 mg total) by mouth daily 90 capsule 6 0 Active Active Problems No known active problems Immunizations Name Administration Dates Next Due Influenza, Quadrivalent, Split, Intramuscular Medical History Medical History Date Comments Hypertension Family History Medical History Relation Name Comments Cancer Father Stroke Mother Relation Name Status Comments Father Mother Sister two Alive Social History Tobacco Use Types Packs/Day Years Used Date Smoking Tobacco: Former Cigarettes Q uit: 10/03/2009 Alcohol Use Standard Drinks/Week Comments Not Currently 0 (1 standard drink = 0.6 oz pur e alcohol) Personal Safety Answer Date Recorded Getting School Help Needed Not on file 05/19 Sex and Gender Information Value Date Recorded Sex Assigned at Not on file 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 Gender Identity Not on file Sexual Orientation Not on file Obstetrics History Last Filed Vital Signs Vital Sign Reading Time Taken Comments Blood Pressure 178/111 10/04/2019 9:23 AM CDT pt stated he forgot to take his BP medication Pulse 90 10/04/2019 9:23 AM CDT Temperature 36.9 ??C (98.5 ??F) 10/04/2019 9 :23 AM CDT Respiratory Rate 28 10/04/2019 9:23 AM CDT Oxygen Saturation 95% 10/04/2019 9:2 3 AM CDT Inhaled Oxygen Concentration - - Weight 160.6 kg (354 lb) 10/04/2019 9:2 3 AM CDT Height - - Body Mass Index - - Plan of Treatment Not on file Insurance [employer] [place] [address] Care Teams Zyglo Technician Relationship Specialty Start Date End Date Zohra Braxton NP [address] [place] [id number] PCP - General Family Practice 01/17/24
--- OUTSIDE RECORDS SUMMARY | 2024-03-05 02:22 | XMS_ITS | Encounter Summary ---
Author Organization [facility] Address [address] [place] [address] Care Team Providers Care Director Of Emergency Nursing Name Role Phone Unavailable Primary Care Provider Unavailabl e Encounter Details Date Type Department Care Team (Late st Contact Info) Description 08/11/2023 External Device Data [facility] ABSTRACTION Provider, Abstract [...]
--- OUTSIDE RECORDS SUMMARY | 2024-03-05 02:22 | XMS_ITS | Referral Summary ---
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
--- OUTSIDE RECORDS SUMMARY | 2024-03-05 02:22 | XMS_ITS | Encounter Summary ---
Author Organization [facility] Address [address] [place] [address] Care Team Providers Care Independent Living Specialist Name Role Phone Unavailable Primary Care Provider Unavailabl e Encounter Details Date Type Department Care Team (Late st Contact Info) Description 06/21/2023 External Device Data ST[facility] ABSTRACTION Provider, Abstract [...]
--- OUTSIDE RECORDS SUMMARY | 2024-03-05 02:22 | XMS_ITS | Encounter Summary ---
Author Organization [facility] Address [address] [place] [address] Care Team Providers Care Card Folder Name Role Phone Unavailable Primary Care Provider Unavailabl e Reason for Visit * Reason Onset Date Comments Durable Medical Equipment 07/22/2023 Encounter Details Date Type Department Care Team (Late st Contact Info) Description 07/22/2023 Telephone [facility] Pulmonology [facility] [address] [place] [address] Cristobal Garcia MD [address] [place] [address] Durable Medical Equipment Social History Tobacco Use Types Packs/Day Years Used Date Smoking Tobacco: Never Smokeless Tobacco: Never Sex and Gender Information Value Date Recorded Sex Assigned at Not on file Gender Identity Not on file Sexual Orientation Not on file documented as of this encounter Miscellaneous Notes * Telephone Encounter - America Cottrell, RN - 07/27/2023 1:03 PM CDT Patient left phone message stating the POC he currently has was bought privately about 20 years ago. He wants a new POC but wants it to be covered by insurance this time. He also asked how to set up a [employer] account. Last walk study done in 2019 (media) did not show the need for O2, RENE 11/18/22, has no f/u appt made. Called patient back to let him know he will need an office visit and O2 walk serenity dy that shows the need for supplemental O2 before we can order a POC. Told him to go to [email or web address] set up account. He said he is getting a hip injection next week and has been taking off a lot ofwork lately, so he needs to wait for these appts. I told him to make an appt karissa because there will be a wait and that he can do this on the [employer] portal if he would like. * Telephone Encounter - Anastasia Menendez RN - 07/22/2023 10:22 AM CDT Patient called LM on nurse line stating he had a oxygen concentrator and it went bad and wanted to know if he can get on though his insurance. LMOR for patient to return call to get more information RENE 11/18/22 - does not mention oxygen concentrator documented in this encounter Plan of Treatment Not on file documented as of this encounter Visit Diagnoses Not on filedocumented in this encounter
--- OUTSIDE RECORDS SUMMARY | 2024-03-05 02:22 | XMS_ITS | Encounter Summary ---
Author Organization [facility] Address [address] [place] [address] Care Team Providers Care Dopeman Name Role Phone Sofía Rowan NP Primary Care Provider [phone] Encounter Details Date Type Department Care Team ([facility] st Contact Info) Description 10/08/2019 Orders Only [facility] Pulmonology [address] [place] [address] Amrita Rasheed MA Dyspnea and respiratory abnormalities (Primary Dx) Social History Tobacco Use Types Packs/Day Years Used Date Smoking Tobacco: Former Cigarettes Q uit: 10/03/2009 Alcohol Use Standard Drinks/Week Comments Not Currently 0 (1 standard drink = 0.6 oz pur e alcohol) Sex and Gender Information Value Date Recorded Sex Assigned at Not on file Legal Sex Male 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
--- OUTSIDE RECORDS SUMMARY | 2024-03-05 02:22 | XMS_ITS | Encounter Summary ---
Author Organization [facility] Address [address] [place] [address] Care Team Providers Care Oil Changer Name Role Phone Unavailable Primary Care Provider Unavailabl e Reason for Visit * Reason Comments Shortness of Breath Encounter Details Date Type Department Care Team (Late st Contact Info) Description 12/07/2018 9:00 AM CDT Office Visit [facility] Pulmonology [facility] [address] [place] [address] Marilu Meade MD [address] [place] [address] Morbid obesity with body mass index of 40.0-49.9; Lung nodule Social History Tobacco Use Types Packs/Day Years Used Date Smoking Tobacco: Never Smokeless Tobacco: Never Sex and Gender Information Value Date Recorded Sex Assigned at Not on file Gender Identity Not on file Sexual Orientation Not on file documented as of this encounter Last Filed Vital Signs Vital Sign Reading Time Taken Comments Blood Pressure 146/100 12/07/2018 9:45 AM CDT Pulse 78 12/07/2018 9:45 AM CDT Temperature - - Respiratory Rate 18 12/07/2018 9:45 AM CDT Oxygen Saturation 98% 12/07/2018 9:45 AM CDT RA Inhaled Oxygen Concentration - - Weight 152 kg (335 lb) 12/07/2018 9:45 AM CDT Height 180.3 cm (5' 11 ) 12/07/2018 9:45 AM CDT Body Mass Index 46.72 12/07/2018 9:45 AM CDT documented in this encounter Progress Notes * Marilu Medae MD - 12/07/2018 9:49 AM CDT Pulmonary Outpatient History and Physical Marilu Meade MD 12/07/2018 9:49 AM Patient Name: Danilo Reagan 1960 Primary Care Physician: No primary care provider on file. Date of Service: 12/07/2018 Impression: 58-year-old male with a body mass index of 46.7 kg/m?? 1. Reactive airway disease following recent community-acquired pneumonia 2. Postnasal drip with upper airway cough syndrome 3. Previous history of obstructive sleep apnea not on CPAP therapy 4. Morbid obesity 5. History of tobacco abuse, quit 10 years ago after 30-35 pack years of smoking Recommendations: 1. Reviewed chest CT findings with patient and reassured 2. Start Breo 200/25 mcg 1 puff daily, rinse mouth after each use 3. Sinus rinse twice daily followed by Flonase 1 spray to each nostril twice daily 4. Continue albuterol for as needed use 5. Continue Singulair 10 mg p.o. every afternoon 6. Stop prednisone 7. Repeat chest CT in 1 year 8. Patient will benefit from repeat sleep study, unwilling at this point Please call back if no better in 2-[address]- <6 mm sub pleural scarring, RML LOW DOSE CT LUNG CANCER SCREENING ELIGIBILITY CRITERIA (must meet all) ?? Age between 55-77 years ?? Asymptomatic for signs or symptoms of lung cancer ?? Smoking history of at least 30 pack years ?? Current smoker or one who has quit smoking within the last 15 years Total pack-years of tobacco smokin-35PY TOBACCO COUNSELING He is not a tobacco user. Counseled re: importance of maintaining cigarette smoking abstinence if former smoker; or importance of smoking cessation if current smoker. SHARED DECISION MAKING ?? Patient is willing and healthy enough to undergo further diagnostic testing, including lung biopsy. ?? Patient is willing and healthy enough to be treated for lung cancer should it be diagnosed. ?? Patient also agrees to adhere to a program of yearly CT lung screening exams until he is no longer eligible for participation in lung cancer screening based on the criteria listed above. ?? The benefits and harms of screening have been discussed. ?? Screening will be discontinued once an individual has not smoked for 15 years, develops a healthproblem that substantially limits life expectancy or the ability or willingness to have curative lung surgery or reaches the age of 77. Marilu Meade MD Chief Complaint Patient presents with ??? Shortness of Breath HPI: Patient is a 58 y.o. male who is seen in consultation. Patient is here for further evaluation of ongoing symptoms of chest congestion, exertional shortness of breath, wheezing and chest tightness. Patient was in his usual state of health until about August2018 when came down with a respiratory tract illness and was diagnosed with community-acquired pneumonia at an urgent care. Has been treated with antibiotics and steroids with incomplete resolution of symptoms. 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 He has no history of seasonal allergies prior to this episode, has no family history of asthma. He lives alone and has no pets at home. 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 He denies any hemoptysis, the expectoration is creamy white. Cough or shortness of breath does not disturb his sleep. He has previous history of GERD. In 2003 he had a sleep study done and was diagnosed with borderline obstructive sleep apnea, did not follow through with any treatment recommendations. He lives alone and is hence not aware of any snoring. Overall feels that he does wake up rested. However does report frequent nocturia. He has been started on Singulair and albuterol by his new PMD and both of them seem to be helpful in reducing his symptoms No past medical history on file. No past surgical history on file. Current Medications: No current outpatient medications on file. No current facility-administered medications for this visit. Medication Allergies: Allergies Allergen Reactions ??? Nexium [Esomeprazole Magnesium] Other (See Comments) Stomach pain, organ failure No family history on file. Social History Tobacco Use ??? Smoking status: Ex smoker, 30-35 PY, quit 10 years ago ??? Smokeless tobacco: Never Used Substance Use Topics ??? Alcohol use: Not on file Review of Systems: General ROS: positive for - fatigue, fever and weight gain Dermatological ROS: negative for skin rashes or unusual skin lesions ENT ROS: negative for nasal congestion, drainage or bleeding, sore throat, dysphagia or ear pain Respiratory ROS: positive for - cough, dyspnea on exertion and wheezing Cardiovascular ROS: negative for chest pain or dyspnea on exertion Gastrointestinal ROS: negative for reflux, abdominal pain, change in bowel habits, or black or bloody stools Genito-Urinary ROS: negative for dysuria, trouble voiding, or hematuria Musculoskeletal ROS: negative for back pain, neck pain or joint pain or swelling Neurological ROS: negative for TIA or stroke symptoms Psychological ROS: negative for anxiety or depressive symptoms Endocrine ROS: negative for polyuria/polydipsia or new changes in weight Hematological and Lymphatic ROS: negative for swollen glands or abnormal bleeding Allergy and Immunology ROS: negative for itchy eyes, nasal congestion, sneezing, lymphadenopathy Sleep; negative snoring, negative apneas, negative daytime sleepiness, negative abnormal limb movements, negative insomnia TOBACCO COUNSELING He is not a tobacco user. Objective PHYSICAL EXAM BP (!) 146/100 Pulse 78 Resp 18 Ht 5' 11 (1.803 m) Wt (!) 152 kg (335 lb) SpO2 98% Comment: RA BMI 46.72 kg/m?? General: No Distress HEENT: NCAT, Neck: Supple, symmetrical, trachea midline, no adenopathy, thyroid normal. The Soft palate is Mallampati Class 4 Lungs: Clear Breath Sounds Heart: S1, S2 Normal Abdomen: Soft Non-Tender Extremities: No cyanosis, Clubbing or Edema Skin: Skin Color, texture normal, No rashes Lymph Nodes: Cervical, supraclavicular nodes normal. Problem List There are no active problems to display for this patient. DATA BASE: Radiology No results found for this or any previous visit. No results found for this or any previous visit. PFT Cardiac No results found for this or any previous visit. This note was transcribed using [facility] speaking computerized voice recognition without a human relocation coordinator. This report may or may not have been adjusted for typographical, grammaticaland syntax errors. Marilu Meade MD [facility] PULMONOLOGY [place] [id number] [facility] [address] Dept: [phone] Dept Loc: [phone] documented in this encounter Miscellaneous Notes * Patient Instructions - Marilu Meade MD - 12/07/2018 9:58 AM CDT Please check your prescription for prednisone and tell me when you are supposed to stop it. Starting a new allergy medication in the morning, fexofenadine Resume nose spray BUT before you do a nose spray do a sinus rinse twice daily-- over the counter [facility] Sinus rinse. Breo inhaler once daily, rinse mouth Use albuterol inhaler as and when needed If no better in 2-3 weeks, call me back and I will need to add another inhaler. Chest CT in 1 year Think about getting another sleep study documented in this encounter Plan of Treatment Not on file documented as of this encounter Visit Diagnoses Diagnosis Morbid obesity with body mass index of 40.0-49.9 Lung nodule Solitary pulmonary nodule documented in this encounter
--- OUTSIDE RECORDS SUMMARY | 2024-03-05 02:22 | XMS_ITS | Encounter Summary ---
Author Organization [facility] Address [address] [place] [address] Care Team Providers Care Funeral Director/Embalmer/Owner Name Role Phone Unavailable Primary Care Provider Unavailabl e Encounter Details Date Type Department Care Team (Late st Contact Info) Description 11/08/2023 External Device Data [facility] ABSTRACTION Provider, Abstract [...]
--- OUTSIDE RECORDS SUMMARY | 2024-03-05 02:22 | XMS_ITS | Encounter Summary ---
Author Organization [facility] Address [address] [place] [address] Care Team Providers Care Leadite Man Name Role Phone Sofía Rowan NP Primary Care Provider +1- [phone] Encounter Details Date Type Department Care Team (Late st Contact Info) Description 10/04/2019 9:15 AM CDT Office Visit [facility] Pulmonology [address] [place] [address] [place] [address] [place] [address] [address] [place] [address] Dyspnea and respiratory abnormalities (Primary Dx); Cigarette nicotine dependence in remission; Class 3 severe obesity due to excess calories with serious comorbidity and body mass index (BMI) of 45.0 to 49.9 in adult (CMS/HCC); Chronic cough; Gastroesophageal reflux disease, esophagitis presence not specified Social History Tobacco Use Types Packs/Day Years Used Date Smoking Tobacco: Former Cigarettes Q uit: 10/03/2009 Alcohol Use Standard Drinks/Week Comments Not Currently 0 (1 standard drink = 0.6 oz pur e alcohol) Sex and Gender Information Value Date Recorded Sex Assigned at Not on file 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 PULMONARY CLINIC NOTE Visit Date: 10/04/2019 INTERVAL HISTORY: Presents today for follow-up of ??? HPI: Patient is a 59 y.o. male w/ PMH of morbid obesity who presented on 10/04/2019 for evaluation of dyspnea. He was seen by a song writer at [facility] in [place] in 2018 for dyspnea on exertion and persistent cough following CAP. His diagnosed with pneumonia urgent care for to antibiotics and steroids butsymptoms particularly cough did not totally resolve. In still song writer started him on Singulair, Flonase, albuterol, and Breo. Lung cancer screening chest CT was also ordered at that time. Patient has dyspnea with exertion. Any physical activity also causes cough. Minimal cough at rest. No dyspnea at rest. Symptoms began in June 2018. Denies wheezing. Denies orthopnea, leg edema, or chest pain. Denies any upper respiratory symptoms. Denies GERD. Social History: Former smoker 1 ppd since age 13, Quit in 2009. No etoh or drug use. 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 Review of Systems: Review of Systems Constitutional: Negative for chills and fever. HENT: Negative for nosebleeds and postnasal drip. Eyes: Negative for pain and visual disturbance. Respiratory: Positive for cough and shortness of breath. Negative for wheezing. Cardiovascular: Negative for chest pain and palpitations. Gastrointestinal: Negative for blood in stool and diarrhea. Endocrine: Negative for polydipsia. Genitourinary: Negative for dysuria and hematuria. Musculoskeletal: Negative for joint swelling. Skin: Negative for rash. Neurological: Negative for seizures. Psychiatric/Behavioral: Negative for behavioral problems. OBJECTIVE: Physical Exam: Vitals: 10/04/19 0923 BP: (!) 178/111 Pulse: 90 Resp: 28 Temp: 36.9 ??C (98.5 ??F) SpO2: 95% Weight: (!) 160.6 kg (354 lb) Physical Exam Constitutional: General: He is awake. Appearance: Normal appearance. He is obese. HENT: Head: Normocephalic and atraumatic. Nose: Comments: External nose normal appearing Mouth/Throat: Mouth: Mucous membranes are moist. Pharynx: Oropharynx is clear. Eyes: General: No scleral icterus. Conjunctiva/sclera: Conjunctivae normal. Neck: Musculoskeletal: Normal range of motion. Cardiovascular: Rate and Rhythm: Normal rate and regular rhythm. Heart sounds: No friction rub. Pulmonary: Breath sounds: No wheezing. Abdominal: Palpations: Abdomen is soft. Tenderness: There is no abdominal tenderness. Musculoskeletal: General: No signs of injury. Right lower leg: No edema. Left lower leg: No edema. Skin: General: Skin is dry. Coloration: Skin is not jaundiced. Neurological: General: No focal deficit present. Mental Status: He is alert. Mental status is at baseline. Psychiatric: Mood and Affect: Mood normal. Behavior: Behavior normal. Data Review: ASSESSMENT AND PLAN 1. Dyspnea and cough o May have COPD or upper airway cough syndrome vs asthma but I think a significant portion, if not the majority, of the cause of his symptoms is his morbid Obesity. o Obtain PFT and 6 mwt/oxygen titration study o If PFT unrevealing will obtain methacholine challenge o Continue Singulair and p.r.n. albuterol 2. GERD o Start empiric omeprazole 3. Obesity/deconditioning o Counseled for > 5 minutes on diet and exercise strategies for losing weight better sustainablebut he seems slightly resistant as he thinks just fixing his respiratory issues happened back to work which happened was weight think part of his respiratory symptoms are caused by his weight so regardless of how active he is at work, needs strict diet and exercise to lose weight over the next year. 4. H/o tobacco abuse o Has 35 pack year history, quit in 2009. Continue abstinence. o Lung cancer screening CT annually until 2024. Varinder Adler MD There may be syntax/grammatical errors in this note due to the use of voice recognition software. documented in this encounter Plan of Treatment Not on file documented as of this encounter Visit Diagnoses Diagnosis Dyspnea and respiratory abnormalities- Primary Cigarette nicotine dependence in remission Class 3 severe obesity due to excess calories with serious comorbidity and body mass index (BMI) of 45.0 to 49.9 in adult (HCC) Chronic cough Cough Gastroesophageal reflux disease, esophagitis presence not specified documented in this encounter Historical Medications * This list may reflect changes made after this encounter. montelukast (SINGULAIR) 10 mg tablet Take 10 mg by mouth daily losartan-hydroCH LOROthiazide (HYZAAR) 50-12.5 mg per tablet losartan 50 mg-hydrochlorothia zide 12.5 mg tablet TAKE 1 TABLET BY MOUTH EVERY DAY albuterol HFA (PROVENTIL HFA,VENTOLIN HFA,PROAIR HFA) 90 mcg/actuation inhaler albuterol sulfate HFA 90 mcg/actuation aerosol inhaler Inhale 2 puffs every 4-6 hours by inhalation route. 07/26/2019 albuterol 2.5 mg /3 mL (0.083 %) nebulizer solution albuterol sulfate 2.5 mg/3 mL (0.083 %) solution for nebulization VVN BID added in this encounter Care Teams Leadite Man Relationship Specialty Start Date End Date Sofía Rowan NP [address] [place] [address] PCP - General Ict Customer Support Officer 09/28/19 01/16/24 documented as of this encounter
--- OUTSIDE RECORDS SUMMARY | 2024-03-05 02:22 | XMS_ITS | Encounter Summary ---
Author Organization [facility] Address [address] [place] [address] Care Team Providers Care Plant Biology Professor Name Role Phone Unavailable Primary Care Provider Unavailabl e Encounter Details Date Type Department Care Team (Late st Contact Info) Description 06/22/2023 External Device Data STL ABSTRACTION Provider, Abstract [...]
--- OUTSIDE RECORDS SUMMARY | 2024-03-05 02:22 | XMS_ITS | Encounter Summary ---
Author Organization [facility] Address [address] [place] [address] Care Team Providers Care Oracle Application Architect Name Role Phone Sofía Rowan NP Primary Care Provider +1- [phone] Encounter Details Date Type Department Care Team ([facility] Contact Info) Description 10/19/2019 Orders Only [facility] [address] [place] [address] Scanning, Provider Social History Tobacco Use Types Packs/Day Years Used Date Smoking Tobacco: Former Cigarettes Q uit: 10/03/2009 Alcohol Use Standard Drinks/Week Comments Not Currently 0 (1 standard drink = 0.6 oz pur e alcohol) Sex and Gender Information Value Date Recorded Sex Assigned at Not on file Legal Sex Male 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 Gender Identity Not on file Sexual Orientation Not on file documented as of this encounter Plan of Treatment Not on file documented as of this encounter Procedures Procedure Name Priority Date/Time Associated Diagnosis Comments PULMONARY - RESULT SCAN 10/19/2019 documented in this encounter Results * PULMONARY - RESULT SCAN (10/19/2019) Anatomical Region Laterality Modality Other us Provider Scanning Edited Result - Final documented in this encounter Visit Diagnoses Not on filedocumented in this encounter Care Teams Oracle Application Architect Relationship Specialty Start Date End Date Sofía Rowan NP [address] [place] [address] PCP - General Tumbler Dyeing Machine Operator 09/28/19 01/16/24 documented as of this encounter
--- OUTSIDE RECORDS SUMMARY | 2024-03-05 02:22 | XMS_ITS | Encounter Summary ---
Author Organization [facility] Address [address] [place] [address] Care Team Providers Care Licensed Appraiser Name Role Phone Unavailable Primary Care Provider Unavailabl e Encounter Details Date Type Department Care Team (Late st Contact Info) Description 09/06/2023 External Device Data [facility] ABSTRACTION Provider, Abstract [...]
--- OUTSIDE RECORDS SUMMARY | 2024-03-05 02:22 | XMS_ITS | Encounter Summary ---
Author Organization [facility] Address [address] [place] [address] Care Team Providers Care Grip Boss Name Role Phone Unavailable Primary Care Provider Unavailabl e Encounter Details Date Type Department Care Team (Late st Contact Info) Description 11/24/2022 Abstract [facility] Pulmonology [facility] [address] [place] [address] Cristobal Garcia MD [address] [place] [address] Social History Tobacco Use Types [...]
--- OUTSIDE RECORDS SUMMARY | 2024-03-05 02:22 | XMS_ITS | Encounter Summary ---
Author Organization [facility] Address [address] [place] [address] Care Team Providers Care Motel Maid Name Role Phone Unavailable Primary Care Provider Unavailabl e Encounter Details Date Type Department Care Team (Late st Contact Info) Description 03/08/2023 External Device Data ST[facility] ABSTRACTION Provider, Abstract [...]
--- OUTSIDE RECORDS SUMMARY | 2024-03-05 02:22 | XMS_ITS | Encounter Summary ---
Author Organization [facility] Address [address] [place] [address] Care Team Providers Care Talent Coordinator Name Role Phone Unavailable Primary Care Provider Unavailabl e Encounter Details Date Type Department Care Team (Late st Contact Info) Description 05/31/2023 External Device Data [facility] ABSTRACTION Provider, Abstract [...]
--- OUTSIDE RECORDS SUMMARY | 2024-03-05 02:22 | XMS_ITS | Encounter Summary ---
Author Organization [facility] Healthcare Address [address] [place] [address] Care Team Providers Care Order Management Specialist Name Role Phone Sofía Rowan NP Primary Care Provider +1- [phone] Encounter Details Date Type Department Care Team (Late st Contact Info) Description 10/16/2019 6:30 PM CDT Lab [address] [address] Social History Tobacco Use Types Packs/Day Years Used Date Smoking Tobacco: Former Cigarettes Q uit: 10/03/2009 Alcohol Use Standard Drinks/Week Comments Not Currently 0 (1 standard drink = 0.6 oz pur e alcohol) Sex and Gender Information Value Date Recorded Sex Assigned at Not on file Legal Sex Male 2:34 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 The 2018-Novel Coronavirus Assay (COVID-19) Real Time RT-PCR assay is for in vitro diagnostic use under FDA emergency use authorization only. A negative RT-PCR result does not preclude infection with COVID-19 and should not be used as the sole basis for treatment or other patient management decisions. Additional sample types have been validated according to CLIA regulations. ?? Current Interpretive Data was last revised on 2019. Nasopharyngeal 10/16/2019 12 :44 PM CDT 10/17/2019 12:48 AM CDT us [facility] LAB MICROBIOLOGY - GENERAL ORDER IGOR Final Result Performing Organization Address City/State/[facility] Co de Phone Number [facility] Department [place] [address] documented in this encounter Visit Diagnoses Not on filedocumented in this encounter Care Teams Order Management Specialist Relationship Specialty Start Date End Date Sofía Rowan NP [address] [place] [id number] PCP - General Flakeboard Line Tender 09/28/19 01/16/24 documented as of this encounter
--- OUTSIDE RECORDS SUMMARY | 2024-03-05 02:22 | XMS_ITS | Encounter Summary ---
Author Organization [facility] Address [address] [place] [address] Care Team Providers Care Fluid Pump Operator Name Role Phone Unavailable Primary Care Provider Unavailabl e Reason for Visit * Reason Onset Date Comments Information 12/08/2018 Encounter Details Date Type Department Care Team (Late st Contact Info) Description 12/08/2018 Telephone [facility] Pulmonology [facility] [address] [place] [address] Marilu Meade MD [address] [place] [address] Information Social History Tobacco Use Types Packs/Day Years Used Date Smoking Tobacco: Never Smokeless Tobacco: Never Sex and Gender Information Value Date Recorded Sex Assigned at Not on file Gender Identity Not on file Sexual Orientation Not on file documented as of this encounter Miscellaneous Notes * Telephone Encounter - Rogelio Joshua - 12/08/2018 1:49 PM CDT Patient called the nurse line, left message to relay that he completed prednisone last week and is no longer taking the medication. documented in this encounter Plan of Treatment Not on file documented as of this encounter Visit Diagnoses Not on filedocumented in this encounter
--- OUTSIDE RECORDS SUMMARY | 2024-03-05 02:22 | XMS_ITS | Encounter Summary ---
Author Organization [facility] Address [address] [place] [address] Care Team Providers Care Patrol Mother Name Role Phone Sofía Rowan NP Primary Care Provider +1- [phone] Encounter Details Date Type Department Care Team (Late st Contact Info) Description 10/18/[address] 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 He spoke with Amrit[facility] Scre[facility] and told her he wasgoing to wait to do testing until he switched insurance. He stated the insurance he has now is charging to much for CT. * Telephone Encounter - Giovanna Dyson - 10/18/2019 9:14 AM CDT Lung screening nurse Amrita called yesterday and stated this patient is scheduled for CT Scan 10/19/2019. She said patient had scan at [facility] 11/24/2019. Printed report and showed Dr. Adler. He said it was ok to wait for Nov 2019 so that it is a year from his last scan. Amrita stated she would reach out to patient and get appointment pushed out till after November 23 so it would be a year from previous. documented in this encounter Plan of Treatment Not on file documented as of this encounter Visit Diagnoses Not on filedocumented in this encounter Care Teams Patrol Mother Relationship Specialty Start Date End Date Sofía Rowan NP [address] [place] [id number] PCP - General Api Architect 09/28/19 01/16/24 documented as of this encounter
--- OUTSIDE RECORDS SUMMARY | 2024-03-05 02:22 | XMS_ITS | Encounter Summary ---
Author Organization [facility] Healthcare Address [address] [place] [address] Care Team Providers Care Binder Cutter Name Role Phone Sofía Rowan NP Primary Care Provider +1- [phone] Encounter Details Date Type Department Care Team (Late st Contact Info) Description 10/19/2019 10:45 AM CDT Hospital Encounter [facility] Varinder Adler MD [address] [facility] [address] [id number] Social History Tobacco Use Types Packs/Day Years Used Date Smoking Tobacco: Former Cigarettes Q uit: 10/03/2009 Alcohol Use Standard Drinks/Week Comments Not Currently 0 (1 standard drink = 0.6 oz pur e alcohol) Sex and Gender Information Value Date Recorded Sex Assigned at Not on file Legal Sex Male 2:34 AM PRESSER HAND Gender Identity Not on file Sexual Orientation [...] Procedure Name Priority Date/Time Associated Diagnosis Comments CARDIOPULMONARY DIAGNOSTICS REPORT 10/24/2019 12:00 AM CDT documented in this encounter Results * CARDIOPULMONARY DIAGNOSTICS REPORT (10/24/2019 12:00 AM CDT) Narrative 10/24/2019 12:00 AM CDT Ordered by an unspecified provider. us Historical Provider NURSING COMMUNICATION Fin al Result documented in this encounter Visit Diagnoses Not on filedocumented in this encounter Care Teams Binder Cutter Relationship Specialty Start Date End Date Sofía Rowan NP [address] [place] [id number] PCP - General Delivery Coordinator 09/28/19 01/16/24 documented as of this encounter
--- OUTSIDE RECORDS SUMMARY | 2024-03-05 02:22 | XMS_ITS | Encounter Summary ---
Author Organization [facility] Address [address] [place] [address] Care Team Providers Care Gun Mechanic Name Role Phone Unavailable Primary Care Provider Unavailabl e Reason for Visit * Reason Onset Date Comments Information 11/22/2022 Need pcp name & address Encounter Details Date Type Department Care Team (Late st Contact Info) Description 11/22/2022 Telephone [facility] Pulmonology [place] [address] [place] [address] Cristobal Garcia MD [address] [place] [address] Information (Need pcp name & address) Social History Tobacco Use Types Packs/Day Years Used Date Smoking Tobacco: Never Smokeless Tobacco: Never Sex and Gender Information Value Date Recorded Sex Assigned at Not on file Gender Identity Not on file Sexual Orientation Not on file documented as of this encounter Miscellaneous Notes * Telephone Encounter - Hannah Singer - 11/23/2022 12:46 PM CDT Patient returned call and lm of information : [facility] [phone] * Telephone Encounter - Hannah Singer - 11/22/2022 2:36 PM CDT Called pt and lmovm that name & address to pcp is needed to expedite medical release form to obtain records for continuation of care. documented in this encounter Plan of Treatment Not on file documented as of this encounter Visit Diagnoses Not on filedocumented in this encounter
--- OUTSIDE RECORDS SUMMARY | 2024-03-05 02:22 | XMS_ITS | Encounter Summary ---
Author Organization [facility] Address [address] [place] [address] Care Team Providers Care Airport Engineer Name Role Phone Unavailable Primary Care Provider Unavailabl e Encounter Details Date Type Department Care Team (Latest Contact Info) Description 11/18/2022 11:49 AM CDT - 11/18/2022 11:59 PM CDT Hospital Encounter [facility] [place] [address] [place] [address] Cristobal Garcia MD [address] [place] [address] Discharge Disposition: Home or Self Care Social History Tobacco Use Types Packs/Day Years Used Date Smoking Tobacco: Never Smokeless Tobacco: Never Sex and Gender Information Value Date Recorded Sex Assigned at Not on file Gender Identity Not on file Sexual Orientation Not on file documented as of this encounter Medications at Time of Discharge Medication Sig Dispensed Refills Start Date End Date amLODIPine (NORVASC) 5 mg tablet Take 1 Tablet by mouth daily. metFORMIN (GLUCOPHAGE XR) 500 mg Extended Release 24 hour tablet Take 1,000 mg by mouth 2 times daily. atorvastatin (LIPITOR) 10 mg tablet Take 1 Tablet by mouth daily. 06/30/2022 insulin glargine-yfgn (Semglee,insulin glarg-yfgn,Pen) 100 unit/mL pen syringe Inject 10 Units by subcutaneous injection daily at bedtime. semaglutide (Ozempic) 2 mg/dose (8 mg/3 mL) Pen Injector Inject 2 mg by subcutaneous injection every 7 days. omeprazole (PriLOSEC) 40 mg Capsule, Delayed Release(E.C.) Take 1 Capsule by mouth every 7 days. 06/29/2022 albuterol (PROVENTIL,VENTOLIN) 2.5 mg /3 mL (0.083 %) Solution for Nebulization USE 1 VIAL IN NEBULIZER TWICE DAILY albuterol HFA 90 mcg inhaler Take 2 Puffs by inhalation every 6 hours as needed for Shortness of Breath. doxycycline hyclate (VIBRAMYCIN) 100 mg capsule Take 100 mg by mouth 2 times daily. losartan-hydroCHLOROthi azide (HYZAAR) 50-12.5 mg tablet Take 1 Tablet by mouth daily. predniSONE (DELTASONE) 20 mg tablet Take 20 mg by mouth daily. montelukast (SINGULAIR) 10 mg tablet Take 10 mg by mouth daily at bedtime. benzonatate (TESSALON) 100 mg capsule Take 100 mg by mouth 3 times daily. fexofenadine (JURGEN) 180 mg tablet Take 1 Tablet (180 mg) by mouth daily. 30 Tablet 4 12/07/2018 fluticasone propionate (FLONASE) 50 mcg/spray [place], Suspension nasal inhaler Administer 1 [place] in each nostril 2 times daily. 16 Gram 4 12/07/2018 fluticasone furoate-vilanterol (BREO ELLIPTA) 200-25 mcg/dose Disk with Device Take 1 Puff by inhalation daily. 1 Inhaler 3 12/07/2018 fluticasone furoate-vilanterol (BREO ELLIPTA) 200-25 mcg/dose Disk with DeviceIndications:LOT: [id number] EXP: 03/27 Take 1 Puff by inhalation daily. 2 Each 12/07/2018 documented as of this encounter Miscellaneous Notes * Treatment Plan - Alia Delatorre (Student) - 11/18/2022 11:50 AM CDT Images from the original note were not included. [facility] Medication & Flush Protocol-Radiology Procedures - Radiology Procedures [facility] Approved by: [facility] - Medical Executive Committee Approval Date: 11/19/2021 ORDERS ARE ENTERED ???PER PROTOCOL?? Enter the protocol in the patient's electronic health record using smartphrase: .radiologymedicationprotocol Communication Orders: If required to complete procedure, senior cytogenetic technologist or nurse may place indwelling bazan catheter Medication Orders: Sodium chloride 0.9% (normal saline) flush 10 mLs PRN for saline lock or medication administration. For respiratory distress, initiate oxygen and/or increase O2 to maintain saturation greater than 90%. For all invasive procedures: Obtain Lidocaine 1% for intra-procedure administration. If Lidocaine 1% unavailable, may substitute Lidocaine 2% PROCEDURE SPECIFIC RADIOLOGY MEDICATIONS *Any exceptions to these contrast protocols must be approved by a Radiologist and documented in theEHR Progress Notes. When multiple medications are listed with the comment ???OR?? them, select first option until challenges from product availability make this option unavailable DIAGNOSTIC RADIOLOGY CONTRAST PROTOCOLS ADULTS: PROCEDURE DOSAGE ARTHROGRAMS (shoulder, wrist, hip, knee, TMJ) Iopamidol (ISOVUE-300) 61% Radiologist to administer up to 30mL, intraarticularly, one time. If MRI ordered, add 0.15mLGadobenate Dimeglumine (Multihance) to the iopamidol and mix well. (If more than 30mL is desired, radiologist may request that 50mL of iopadmidol (ISOVUE-300) 61% be mixed with 0.25mL of gadobenate dimeglumine (Multihance) BARIUM ENEMA (with or without AIR CONTRAST) Barium Sulfate (Liquid Polibar Plus) 96% (w/w) 359x=200tV mixed with 1500mL of water, radiologist to administer up to 2000mL rectally, one time only BARIUM ENEMA WATER SOLUBLE Iopamidol (ISOVUE-250) 51%, 800mL + CYSTOGRAFIN 30%, 900mL, radiologist to administer up to 1700 mL of combined fluids, rectally, one time. Radiologist may repeat if needed to complete procedure CYSTOGRAM CYSTOGRAFIN 30%, Radiologist to administer up to 300mL, instill into the bladder, one time. ESOPHAGUS BARIUM SWALLOW Radiologist to request one or more of the following products: Barium Sulfate (E-Z-HD) 98% oral suspension 340g = 135mL, orally, one time. Barium Sulfate (E-Z-PAQUE) 96% (w/w) oral suspension 176g = 240mL, orally, one time. E-Z Gas II effervescent granules 4g, one packet, orally, one time only E-Z Disk Barium Sulfate 700 mg Tab, orally, one time ESOPHAGUS BARIUM SWALLOW WATER SOLUBLE Iopamidol (ISOVUE) 370mg/mL oral solution, radiologist to administer up to 50mL, orally, one time OR Iohexol (OMNIPAQUE) 350mg/mL oral solution, radiologist to administer up to 50mL, orally, one time ESOPHAGUS BARIUM SWALLOW -BARIATRIC PROTOCOL Post surgery to 1 year = 50mL total volume water soluble: Iopamidol (ISOVUE) 370mg/mL oral solution 50mL OR Iohexol (OMNIPAQUE) 350mg/Ml 50mL oral solution After 1 year = no more than 236mL (8oz) total volume Liquid E-Z Paque (thin barium) NO Gas crystals MODIFIED BARIUM SWALLOW May use one or more of the following products, administered by Speech Language Pathologist: Barium tablet (E-Z Disk) 13mm = 700mg, up to one tablet, orally, one time. Barium Sulfate (E-Z-PAQUE) 96% oral (w/w) oral suspension up to 176g, orally, one time. May mix with food or liquid to achieve desired viscosity Barium Sulfate (E-Z-PASTE) 60% oral cream, up to 45g, orally, one time. May mix with food or liquidto achieve desired viscosity. HYSTEROSALPINGOGRAM Iopamidol (ISOVUE-300) 61%, provider to administer up to 30ml, vaginally, one time only INTRAVENOUS PYELOGRAM Iopamidol (ISOVUE-370) 76%, administer up to 85mL, intravenous, one time only. Volume of contrast injected determined by radiologist. MYELOGRAMS: CERVICAL Iopamidol (ISOVUE-M 300), 61% radiologist to administer up to 15mL, intrathecal, one time only THORACIC Iopamidol (ISOVUE-M 200) 41%, radiologist to administer up to 20mL, intrathecal, one time only LUMBAR Iopamidol (ISOVUE-M 200) 41%, radiologist to administer up to 20mL, intrathecal, one time only SMALL BOWEL SERIES Barium Sulfate (E-Z-Paque) 96% (w/w) oral suspension (Thin Barium), up to 352g =480mL orally, one time only. SMALL BOWEL SERIES WATER SOLUBLE Iopamidol (ISOVUE) 370mg/mL oral solution, 200mL, orally, one time OR Iohexol (OMNIPAQUE) 350 mg/mL oral solution, 200ml, orally, one time only URETHROCYSTOGRAM VOIDING And RETROGRADE URETHROGRAM Diatraizoate meglumine (Cystografin) 30%, up to 600 mL, instill into thebladder, one time only UPPER GI Radiologist to request one or more of the following products: Barium Sulfate (E-Z-HD) 98% oral suspension 340g = 135mL, orally, one time only. Barium Sulfate (E-Z-PAQUE) 96% (w/w) oral suspension 176g= 240mL, orally, one time only. UPPER GI WATER SOLUBLE Iopamidol (ISOVUE) 370mg/mL oral solution, 200mL, orally, one time OR Iohexol (OMNIPAQUE) 350 mg/mL oral solution, 200mL, orally, one time only UPPER GI AIR CONTRAST Radiologist to request one or more of the following products: Barium Sulfate (E-Z-HD) 98% oral suspension 340g, orally, one time only. Barium Sulfate (E-Z-PAQUE) 96% (w/w) oral suspension 176g, orally, one time. EZ Gas crystals, one packet, orally, one time only. UPPER GI - BARIATRIC PATIENT Post surgery to 1 year = 50mL total volume water soluble: Iopamidol (ISOVUE) 370mg/mL oral solution 50mL OR Iohexol (OMNIPAQUE) 350mg/Ml 50mL oral solution After 1 year = no more than 236mL (8oz) total volume Liquid E-Z Paque (thin barium) NO Gas crystals PORT CONTRAST INJECTION WITH FLUORO Iopamidol (Isovue-300) 61%, radiologist to administer up to 50ml, intravenous, one time only PEDIATRICS: For all procedures with an oral route, preferred route is oral; nasoenteric route may also be used.If needed, radiologist may place a nasoenteric tube to facilitate contrast administration PROCEDURE DOSAGE UPPER GI- Under Age 5 Barium Sulfate (E-Z-Paque) 96% (w/w) oral suspension (Thin Barium), up to 176g = 240mL orally, one time only. UPPER GI WATER SOLUBLE- Under Age 5 Radiologist to request one or more of the following products and select dose required: Iopamidol (ISOVUE) 370mg/mL oral solution, 200mL, orally, one time OR Iohexol (Omnipaque) 350 mg/mL oral solution, orally, one time only OR Iohexol (Omnipaque) 180 mg/mL oral solution, orally, one time only UPPER GI- Above Age 5 Radiologist to request one or more of the following products: Barium Sulfate (E-Z-HD) 98% oral suspension (Thick Barium), up to 340g = 135mL orally, one time only Barium Sulfate(E-Z-Paque) 96% (w/w) oral suspension (Thin Barium), up to 176g = 240mL orally, one time only EZ Gas Packet, 4g (one packet) orally, one time only. UPPER GI WATER SOLUBLE- Above Age 5 Iopamidol (ISOVUE) 370mg/mL oral solution, 200mL, orally, one time OR Iohexol (Omnipaque) 350 mg/mL oral solution, up to 200mL orally, one time only. SMALL BOWEL SERIES- Under Age 5 Barium Sulfate (E-Z-Paque) 96% (w/w) oral suspension (Thin Barium), up to 176g = 240mL orally, one time only SMALL BOWEL WATER SOLUBLE- Under Age 5 Radiologist to request one or more of the following products and select dose required: Iopamidol (ISOVUE) 370mg/mL oral solution, 200mL, orally, one time OR Iohexol (Omnipaque) 350 mg/mL oral solution, orally, one time only OR Iohexol (Omnipaque) 180 mg/mL oral solution, orally, one time only SMALL BOWEL SERIES- Above Age 5 Radiologist to request one or more of the following products: Barium Sulfate (E-Z-Paque) 96% (w/w) oral suspension (Thin Barium), up to 352g = 480mL orally, one time only. SMALL BOWEL SERIES WATER SOLUBLE- Above Age 5 Radiologist to request one or more of the following products: Iopamidol (ISOVUE) 370mg/mL oral solution, 200mL, orally, one time OR Iohexol (Omnipaque) 350mg/mL, up to 200mL orally, one time only ESOPHAGUS BARIUM SWALLOW- Under Age 5 Barium Sulfate (E-Z-Paque) 96% (w/w) oral suspension (Thin Barium), up to 176g = 240mL orally, one time only ESOPHAGUS BARIUM SWALLOW WATER SOLUBLE - Under Age 5 Radiologist to request one or more of the following products and select dose required: Iopamidol (ISOVUE) 370mg/mL oral solution, 200mL, orally, one time OR Iohexol (Omnipaque) 350 mg/mL oral solution, orally, one time only OR Iohexol (Omnipaque) 180 mg/mL oral solution, orally, one time only ESOPHAGUS BARIUM SWALLOW- Above Age 5 Radiologist to request one or more of the following products: Barium Sulfate (E-Z-HD) 98% oral suspension (Thick Barium), up to 340g = 135mL orally, one time only. Barium Sulfate (E-Z-Paque) 96% (w/w) oral suspension (Thin Barium), up to 176g = 240mL orally, one time only. EZ Gas Packet, 4g = 1 packet orally, one time only MODIFIED BARIUM SWALLOW- Above Age 5 May use one or more of the following products, administered bySpeech Language Pathologist: Barium tablet (E-Z Disk) 700mg = 13mm, up to one tablet, orally, one time. Barium Sulfate 96% oral suspension (E-Z-PAQUE), up to 176g, orally, one time. May mix with food or liquid to achieve desired viscosity. Barium Sulfate (E-Z-PASTE) 60%oral cream, up to 45g, orally, one time. May mix with food or liquid to achieve desired viscosity. MODIFIED BARIUM SWALLOW-Under age 5 May use one or more of the following products, administered by Speech Language Pathologist: Barium Sulfate 96% oral suspension (E-Z-PAQUE), up to 176g, orally, one time. May mix with food or liquid to achieve desired viscosity. Barium Sulfate (E-Z-PASTE) 60% oral cream, up to 45g, orally, one time. May mix with food or liquidto achieve desired viscosity. SPEECH VIDEO FLOUROSCOPY Administered by Speech Language Pathologist: Barium Sulfate (E-Z-HD) 98%, 1 mL in each nostril, intranasally, one time only. INTRAVENOUS PYELOGRAM Iopamidol (ISOVUE-370) 76%, administer up to 85mL, intravenous, one time only. Volume of contrast injected determined by radiologist. URETHROCYSTOGRAM VOIDING Iothalamate Meglumine (Cystografin Dilute) 18%, up to 600 mL, instill intothe bladder, one time only OR Iothalamate Meglumine (Cysto Conray II Urethral) 17.2%, up to 600 mL, instill into the bladder, onetime only BARIUM ENEMA WATER SOLUBLE Iothalamate Meglumine (Cystographin Dilute) 18%, 300 mL, radiologist to administer up to 900 mL rectally, one time. Radiologist may repeat if neededto complete procedure. OR Iothalamate Meglumine (Cysto Conray II Urethral) 17.2%, 250 mL, radiologist to administer up to 900 mL rectally, one time. Radiologist may repeat if neededto complete procedure. BARIUM ENEMA (with or without AIR CONTRAST) Barium Sulfate (Liquid Polibar Plus) 96% (w/w) 454g =500mL mixed with 1500mL of water, radiologist to administer up to 2000mL of mixture rectally, one timeonly documented in this encounter Plan of Treatment Not on file documented as of this encounter Procedures Procedure Name Priority Date/Time Associated Diagnosis Comments XR CHEST PA AND LATERAL 2 VW Routine 11/18/2022 11:57 AM CDT VAIL (dyspnea on exertion) documented in this encounter Results * XR CHEST PA AND LATERAL 2 VW (11/18/2022 11:57 AM CDT) Anatomical Region Laterality Modality Chest Computed Radiogr aphy 11/18/2022 11:5 8 AM CDT Impressions 11/18/2022 2:17 PM CDT IMPRESSION: ?? 1. No focal lung consolidation. DICTATION LOCATION: Location 1 - [facility] 11/18/2022 2:17 PM CDT EXAMINATION: X-RAY CHEST [...] lung consolidation. DICTATION LOCATION: Location 1 - [facility] Cristobal Garcia MD DIAGNOSTIC RADHA GING ORDERABLES documented in this encounter Visit Diagnoses Diagnosis VAIL (dyspnea on exertion) Other dyspnea and respiratory abnormality documented in this encounter
--- OUTSIDE RECORDS SUMMARY | 2024-03-05 02:22 | XMS_ITS | Encounter Summary ---
Author Organization [facility] Address [address] [place] [address] Care Team Providers Care Veneer Drier Feeder Name Role Phone Unavailable Primary Care Provider Unavailabl e Encounter Details Date Type Department Care Team (Late st Contact Info) Description 04/22/2023 External Device Data [facility] ABSTRACTION Provider, Abstract [...]
--- OUTSIDE RECORDS SUMMARY | 2024-03-05 02:22 | XMS_ITS | Encounter Summary ---
Author Organization [facility] Address [address] [place] [address] Care Team Providers Care Lapel Stitcher Name Role Phone Sofía Rowan NP Primary Care Provider [phone] Encounter Details Date Type Department Care Team ([facility] Contact Info) Description 10/05/2019 Telephone [facility] Pulmonology [address] [place] [address] Giovanna Dyson Social History Tobacco Use Types Packs/Day Years Used Date Smoking Tobacco: Former Cigarettes Q uit: 10/03/2009 Alcohol Use Standard Drinks/Week Comments Not Currently 0 (1 standard drink = 0.6 oz pur e alcohol) Sex and Gender Information Value Date Recorded Sex Assigned at Not on file Legal Sex Male 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 documented in this encounter Plan of Treatment Not on file documented as of this encounter Visit Diagnoses Not on filedocumented in this encounter Care Teams Lapel Stitcher Relationship Specialty Start Date End Date Sofía Rowan NP [address] [place] [address] [place], [place] [id number] PCP - General Control Engineer 09/28/19 01/16/24 documented as of this encounter
--- OUTSIDE RECORDS SUMMARY | 2024-03-05 02:22 | XMS_ITS | Encounter Summary ---
Author Organization [facility] Address [address] [place] [address] Care Team Providers Care Credit And Collections Representative Name Role Phone Unavailable Primary Care Provider Unavailabl e Encounter Details Date Type Department Care Team (Late st Contact Info) Description 01/09/2024 External Device Data [facility] ABSTRACTION [...]
--- OUTSIDE RECORDS SUMMARY | 2024-03-05 02:22 | XMS_ITS | Encounter Summary ---
Author Organization [facility] Address [address] [place] [address] Care Team Providers Care Soft Crab Shedder Name Role Phone Unavailable Primary Care Provider [...]
--- OUTSIDE RECORDS SUMMARY | 2024-03-05 02:22 | XMS_ITS | Encounter Summary ---
Author Organization [facility] Address [address] [place] [address] Care Team Providers Care Desktop Publisher Name Role Phone Unavailable Primary Care Provider Unavailabl e Encounter Details Date Type Department Care Team (Late st Contact Info) Description 12/08/2018 Abstract [facility] Pulmonology [facility] [address] [place] [address] Marilu Meade MD [address] [place] [address] Social History Tobacco Use Types [...]
--- OUTSIDE RECORDS SUMMARY | 2024-03-05 02:22 | XMS_ITS | Encounter Summary ---
Author Organization [facility] Address [address] [place] [address] Care Team Providers Care Police Officer Crime Prevention Name Role Phone Unavailable Primary Care Provider Unavailabl e Encounter Details Date Type Department Care Team (Late st Contact Info) Description 11/29/2018 Abstract [facility] Pulmonology [facility] [address] [place] [address] Marilu Meade MD [address] [place] [address] Social History Tobacco Use Types Packs/Day Years Used Date Smoking Tobacco: Never Assessed Sex and Gender Information Value Date Recorded Sex Assigned at Not on file Gender Identity Not on file Sexual Orientation Not on file documented as of this encounter Plan of Treatment Not on file documented as of this encounter Visit Diagnoses Not on filedocumented in this encounter
== END 2024-02-29 13:14 | disposition home or self-care (01) ==
LOC: ANHSURGERY 18:46 → ANH3MEDSUR 18:46
PROVIDERS: Student in an Organized Health Care Education/Training Program; Admitting Provider Orthopaedic Surgery; Visit Provider Orthopaedic Surgery
PROC: (CPT 27130; principal; 2024-02-27 07:30)
DX: M16.12 Unilateral primary osteoarthritis, left hip (principal); E66.9 Obesity, unspecified; Z68.36 Body mass index [BMI] 36.0-36.9, adult; E11.9 Type 2 diabetes mellitus without complications; I10 Essential (primary) hypertension; Z79.4 Long term (current) use of insulin; Z79.51 Long term (current) use of inhaled steroids; Z79.84 Long term (current) use of oral hypoglycemic drugs; Z79.899 Other long term (current) drug therapy
CPT/HCPCS: 27130; 36415; 71045; 80048; 80053; 80307; 82040; 82948; 83036; 85025; 86850; 86900; 86901; 87641; 93005; 97110; 97116; 97161; 97165; 97530; 97535; 99199; A9270; C1713; C1776; G0378; J0690; J0780; J1171; J1815; J2250; J2270; J2405; J2704; J3010; J3370; J7030; J7120